=== PATIENT | male | born 1970 | race Caucasian/White ===

== ENCOUNTER 2020-01-06 10:33 | Outpatient (REF) | payer MEDICAID, SELFPAY ==
[2020-01-06 15:12] LABS: Estimated Average Glucose 134 mg/dL; Hemoglobin A1c % 6.3 %
== END 2020-01-06 10:34 | disposition home or self-care (01) ==
LOC: CF 10:33
PROVIDERS: Absent Provider Nurse Practitioner Gerontology; PCP Internal Medicine; Referring Provider Internal Medicine; Visit Provider Nurse Practitioner
DX: E11.649 Type 2 diabetes mellitus with hypoglycemia without coma (principal); K21.9 Gastro-esophageal reflux disease without esophagitis; K59.00 Constipation, unspecified; F17.200 Nicotine dependence, unspecified, uncomplicated; Z95.810 Presence of automatic (implantable) cardiac defibrillator
CPT/HCPCS: 36415; 83036; 99213

== ENCOUNTER → 2020-01-20 13:01 | Outpatient (BNVA) | payer MEDICAID, SELFPAY | PROVIDERS: PCP Internal Medicine; Visit Provider Internal Medicine | DX: Z86.718 Personal history of other venous thrombosis and embolism (principal); Z51.81 Encounter for therapeutic drug level monitoring; Z79.01 Long term (current) use of anticoagulants | CPT/HCPCS: 85610 ==

== ENCOUNTER → 2020-02-17 13:05 | Outpatient (BNVA) | payer MEDICAID, SELFPAY | PROVIDERS: PCP Internal Medicine; Visit Provider Internal Medicine | DX: I50.9 Heart failure, unspecified (principal); I42.9 Cardiomyopathy, unspecified; Z45.02 Encounter for adjustment and management of automatic implantable cardiac defibrillator; Z86.718 Personal history of other venous thrombosis and embolism; Z51.81 Encounter for therapeutic drug level monitoring; Z79.01 Long term (current) use of anticoagulants | CPT/HCPCS: 85610; 99211; 99212 ==

== ENCOUNTER 2020-02-21 12:31 | Outpatient (REF) | payer MEDICAID, SELFPAY ==
[2020-02-21 13:49] LABS: Anion Gap 11 (12-20); Blood Urea Nitrogen 12 mg/dL (9-16); Calcium 9.3 mg/dL (8.4-10.2); Carbon Dioxide 32 mmol/L (22-29); Chloride 99 mmol/L (96-108); Estimated Glomerular Filt Rate > 60; Glucose Random 209 mg/dL (60-115); Potassium 4.2 mmol/l (3.3-5.1); Sodium 138 mmol/L (135-145)
[2020-02-21 14:02] LABS: Digoxin 0.8 ng/mL (0.8-2.0)
== END 2020-02-21 12:32 | disposition home or self-care (01) ==
LOC: HO.LAB 12:31
PROVIDERS: Visit Provider Internal Medicine Cardiovascular Disease
DX: I42.9 Cardiomyopathy, unspecified (principal); I50.9 Heart failure, unspecified
CPT/HCPCS: 80048; 80162

== ENCOUNTER → 2020-03-25 13:03 | Outpatient (BNVA) | payer MEDICAID, SELFPAY | PROVIDERS: Visit Provider Internal Medicine | DX: I82.501 Chronic embolism and thrombosis of unspecified deep veins of right lower extremity (principal); Z79.01 Long term (current) use of anticoagulants; Z51.81 Encounter for therapeutic drug level monitoring | CPT/HCPCS: 85610; 99211 ==

== ENCOUNTER → 2020-03-30 13:26 | Outpatient (BNVA) | payer MEDICAID, SELFPAY | PROVIDERS: Visit Provider Nurse Practitioner Gerontology | DX: E11.65 Type 2 diabetes mellitus with hyperglycemia (principal); Z79.4 Long term (current) use of insulin; E78.5 Hyperlipidemia, unspecified | CPT/HCPCS: 82947; 99212 ==

== ENCOUNTER → 2020-04-22 11:34 | Outpatient (BNVA) | payer MEDICAID, SELFPAY | PROVIDERS: PCP Internal Medicine; Visit Provider Internal Medicine | DX: I82.501 Chronic embolism and thrombosis of unspecified deep veins of right lower extremity (principal); Z51.81 Encounter for therapeutic drug level monitoring; Z79.01 Long term (current) use of anticoagulants | CPT/HCPCS: 85610; 99211 ==

== ENCOUNTER 2020-05-19 11:30 | Outpatient (REF) | payer MEDICAID, SELFPAY ==
[2020-05-19 14:18] LABS: Alanine Aminotransferase 27 U/L (0-40); Albumin Level 4.4 g/dL (3.5-5.0); Alkaline Phosphatase 162 U/L (39-117); Anion Gap 15 (12-20); Aspartate Amino Transferase 20 U/L (5-37); Bilirubin Total 0.6 mg/dL (0.0-1.0); Blood Urea Nitrogen 13 mg/dL (9-16); Calcium 8.9 mg/dL (8.4-10.2); Carbon Dioxide 26 mmol/L (22-29); Chloride 101 mmol/L (96-108); Cholesterol 114 mg/dL; Estimated Glomerular Filt Rate > 60; Glucose Fasting 263 mg/dL (60-99); HDL Cholesterol 24 mg/dL; LDL Cholesterol Calculated 44 mg/dl; Potassium 4.8 mmol/L (3.3-5.1); Sodium 137 mmol/L (135-145); Total Protein 7.2 g/dL (6.5-8.0); Triglycerides 234 mg/dL
[2020-05-19 14:26] LABS: Microalbumin Urine < 5.0 mg/L
[2020-05-20 03:42] LABS: LDL Cholesterol Direct 62 mg/dL (<100)
== END 2020-05-19 11:31 | disposition home or self-care (01) ==
LOC: HO.10HDL 11:30
PROVIDERS: Visit Provider Nurse Practitioner Gerontology
DX: E11.65 Type 2 diabetes mellitus with hyperglycemia (principal); Z79.4 Long term (current) use of insulin
CPT/HCPCS: 36415; 80053; 80061; 82043; 83721

== ENCOUNTER → 2020-05-20 13:05 | Outpatient (BNVA) | payer MEDICAID, SELFPAY | PROVIDERS: PCP Internal Medicine; Visit Provider Internal Medicine | DX: Z86.718 Personal history of other venous thrombosis and embolism (principal); Z51.81 Encounter for therapeutic drug level monitoring; Z79.01 Long term (current) use of anticoagulants | CPT/HCPCS: 85610; 99211 ==

== ENCOUNTER 2020-06-05 12:32 | Outpatient (REF) | payer MEDICAID, SELFPAY ==
[2020-06-11 18:27] LABS: Alk.Phos Iso. Macrohepatic 0 % (<=0); Alk.Phos Isoenzymes Bone 15 % (28-66); Alk.Phos Isoenzymes Intest 0 % (1-24); Alk.Phos Isoenzymes Liver 85 % (25-69); Alk.Phos Isoenzymes Placental 0 % (<=0); Alk.Phos Isoenzymes Total 175 U/L (36-130)
== END 2020-06-05 12:33 | disposition home or self-care (01) ==
LOC: HO.LAB 12:32
PROVIDERS: Visit Provider Nurse Practitioner Gerontology
DX: R74.8 Abnormal levels of other serum enzymes (principal)
CPT/HCPCS: 36415; 84080

== ENCOUNTER → 2020-06-17 12:35 | Outpatient (BNVA) | payer MEDICAID, SELFPAY | PROVIDERS: PCP Internal Medicine; Visit Provider Internal Medicine | DX: I82.501 Chronic embolism and thrombosis of unspecified deep veins of right lower extremity (principal); Z51.81 Encounter for therapeutic drug level monitoring; Z79.01 Long term (current) use of anticoagulants | CPT/HCPCS: 85610; 99211 ==

== ENCOUNTER → 2020-06-29 13:27 | Outpatient (BNVA) | payer MEDICAID, SELFPAY | PROVIDERS: PCP Internal Medicine; Visit Provider Nurse Practitioner Gerontology | DX: E11.65 Type 2 diabetes mellitus with hyperglycemia (principal); Z79.4 Long term (current) use of insulin; E78.5 Hyperlipidemia, unspecified; R74.8 Abnormal levels of other serum enzymes | CPT/HCPCS: 82947; 99212 ==

== ENCOUNTER → 2020-07-06 10:56 | Outpatient (BNVA) | payer MEDICAID, SELFPAY | PROVIDERS: PCP Internal Medicine; Visit Provider Nurse Practitioner ==

== ENCOUNTER → 2020-07-15 13:02 | Outpatient (BNVA) | payer MEDICAID, SELFPAY | PROVIDERS: PCP Internal Medicine; Visit Provider Internal Medicine | DX: Z86.718 Personal history of other venous thrombosis and embolism (principal); Z79.01 Long term (current) use of anticoagulants; Z51.81 Encounter for therapeutic drug level monitoring; R74.8 Abnormal levels of other serum enzymes; K21.9 Gastro-esophageal reflux disease without esophagitis; K59.00 Constipation, unspecified; R14.0 Abdominal distension (gaseous) | CPT/HCPCS: 85610; 99211; 99212 ==

== ENCOUNTER 2020-07-16 12:27 | Outpatient (REF) | payer MEDICAID, SELFPAY ==
[2020-07-16 13:25] LABS: Hematocrit 44.5 % (42-52); Hemoglobin 14.7 g/dl (14.0-18.0); Mean Corpuscular Hemoglobin 29.9 pg (27.0-33.0); Mean Corpuscular Volume 90.4 fL (80-98); Mean Platelet Volume 11.3 fL (9.4-12.4); Platelet Count 167 X10*3/uL (160-400); Red Blood Count 4.92 X10*6/uL (4.60-5.80); Red Cell Distribution Width 12.7 % (11.0-16.0); White Blood Count 5.6 X10*3/uL (4.8-10.8)
[2020-07-16 13:44] LABS: Alanine Aminotransferase 30 U/L (0-40); Albumin Level 4.3 g/dL (3.5-5.0); Alkaline Phosphatase 181 U/L (39-117); Aspartate Amino Transferase 19 U/L (5-37); Bilirubin Direct 0.2 mg/dL (0.0-0.5); Bilirubin Total 0.5 mg/dL (0.0-1.0); Total Protein 7.5 g/dL (6.5-8.0)
[2020-07-20 12:37] LABS: Alkaline Phosphatase Bone 17.5 mcg/L (7.0-18.3)
[2020-07-20 13:01] LABS: Mitochondrial Antibodies NEGATIVE (NEGATIVE)
[2020-07-21 22:32] LABS: Alk.Phos Iso. Macrohepatic 0 % (<=0); Alk.Phos Isoenzymes Bone 13 % (28-66); Alk.Phos Isoenzymes Intest 0 % (1-24); Alk.Phos Isoenzymes Liver 87 % (25-69); Alk.Phos Isoenzymes Placental 0 % (<=0); Alk.Phos Isoenzymes Total 165 U/L (36-130)
[2020-07-22 23:22] LABS: Smooth Muscle Antibody <20 U (<20)
== END 2020-07-16 12:28 | disposition home or self-care (01) ==
LOC: HO.LAB 12:27
PROVIDERS: PCP Internal Medicine; Visit Provider Nurse Practitioner Family
DX: R74.8 Abnormal levels of other serum enzymes (principal); K21.9 Gastro-esophageal reflux disease without esophagitis; Z12.11 Encounter for screening for malignant neoplasm of colon
CPT/HCPCS: 80076; 84075; 84080; 85027; 86255; 86256; 87338

== ENCOUNTER 2020-08-13 08:28 | Outpatient (REF) | payer MEDICAID, SELFPAY ==
--- NOTE | ~2020-08-13 | US_ITS ---
EXAMINATION: US ABDOMEN COMPLETE CLINICAL INFORMATION: Abnormal serum enzymes. COMPARISON: CTA chest and abdomen 06/15/2017 TECHNIQUE: Real-time imaging of the abdominal viscera. FINDINGS: PANCREAS: The pancreas is obscured by overlying gas. ABDOMINAL AORTA: The proximal abdominal aorta is normal caliber. The mid and distal abdominal aorta are not visualized. INFERIOR VENA CAVA: Visualized portions are normal. LIVER: The liver is normal in size. The liver contour is normal. Parenchymal echogenicity is heterogenous with areas of focal fatty sparing. No focal hepatic lesion. There is no intrahepatic biliary duct dilatation seen. GALLBLADDER: Normal. The gallbladder is physiologically distended without evidence of stones, sludge, polyps, wall thickening or pericholecystic fluid. COMMON BILE DUCT: Normal in caliber measuring 0.2 cm in diameter. RIGHT KIDNEY: Normal. No hydronephrosis. No renal calculi or focal parenchymal lesions. The kidney measures 11.0 cm in maximum dimension. LEFT KIDNEY: Normal. No hydronephrosis. No renal calculi or focal parenchymal lesions. The kidney measures 11.0 cm in maximum dimension. SPLEEN: The spleen is enlarged and measures 12.5 cm in maximum dimension. FREE FLUID: None. US/US abdomen complete IMPRESSION: Hepatic steatosis with areas of focal fatty sparing. The pancreas, mid and distal abdominal aorta are obscured by overlying gas. Mild splenomegaly.
== END 2020-08-13 08:29 | disposition home or self-care (01) ==
LOC: HO.US 08:28
PROVIDERS: Visit Provider Nurse Practitioner Family
DX: R74.8 Abnormal levels of other serum enzymes (principal)
CPT/HCPCS: 76700

== ENCOUNTER → 2020-08-17 13:09 | Outpatient (BNVA) | payer MEDICAID, SELFPAY | PROVIDERS: PCP Internal Medicine; Visit Provider Internal Medicine | DX: Z86.718 Personal history of other venous thrombosis and embolism (principal); I42.9 Cardiomyopathy, unspecified; F17.210 Nicotine dependence, cigarettes, uncomplicated; Z79.899 Other long term (current) drug therapy; Z79.4 Long term (current) use of insulin; Z45.02 Encounter for adjustment and management of automatic implantable cardiac defibrillator | CPT/HCPCS: 85610; 99211; 99212 ==

== ENCOUNTER → 2020-09-01 13:40 | Outpatient (BNVA) | payer MEDICAID, SELFPAY | PROVIDERS: PCP Internal Medicine; Visit Provider Nurse Practitioner Family ==

== ENCOUNTER 2020-10-06 10:55 | Outpatient (REF) | payer MEDICAID, SELFPAY ==
--- NOTE | ~2020-10-06 | XR_ITS ---
EXAMINATION: XR CHEST CLINICAL INFORMATION: Lower respiratory tract infection COMPARISON: Previous chest x-ray most recent May 2018 TECHNIQUE: 2 views of the chest were obtained. FINDINGS: The cardiac and mediastinal contours are stable. There is a left clavian dual-chamber pacemaker that appears unchanged. The lungs are clear without evidence of a pneumonia. There is no pleural effusion or pneumothorax. Bony structures are unremarkable. XR/XR chest 2V IMPRESSION: No evidence for acute disease in the chest.
== END 2020-10-06 10:56 | disposition home or self-care (01) ==
LOC: HO.XRAY 10:55
PROVIDERS: PCP Internal Medicine; Visit Provider Internal Medicine
DX: J22 Unspecified acute lower respiratory infection (principal)
CPT/HCPCS: 71046

== ENCOUNTER → 2020-10-09 13:07 | Outpatient (BNVA) | payer MEDICAID, SELFPAY | PROVIDERS: PCP Internal Medicine; Visit Provider Internal Medicine | DX: Z86.718 Personal history of other venous thrombosis and embolism (principal); Z51.81 Encounter for therapeutic drug level monitoring; Z79.01 Long term (current) use of anticoagulants | CPT/HCPCS: 85610; 99211 ==

== ENCOUNTER 2020-11-13 22:47 | Emergency (ER) | payer MEDICAID, SELFPAY ==
--- NOTE | ~2020-11-13 | XR_ITS ---
EXAMINATION: XR ABDOMEN KUB CLINICAL INDICATION: Constipation. 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 TECHNIQUE: AP view of the abdomen. FINDINGS: Nonobstructive bowel gas pattern. No dilated loops of bowel. Gas and stool in the colon. Mild colonic stool burden in the left hemicolon. The lung bases are clear. Cardiac pacer leads noted. IVC filter. No acute osseous abnormality. XR/XR KUB IMPRESSION: Mild colonic stool burden involving the left hemicolon. No obstruction.
[2020-11-13 23:32] VITALS: BP 99/68; PULSE 109; RESP 16; TEMP 36.8; O2SAT 94; BMI 27.4
[2020-11-14 00:39] LABS: MANUAL DIFF FLAG NO
[2020-11-14 00:40] LABS: Basophils Percent Auto 0.2 % (0-2); Eosinophils Absolute Auto 0.2 X10*3/uL (0.0-0.4); Eosinophils Percent Auto 2.7 % (0-4); Hematocrit 39.9 % (42-52); Imm Gran Abs Auto 0.02 X10*3/uL (0.00-0.03); Imm Gran Pct Auto 0.3 % (0.0-0.4); Lymphocytes Absolute Auto 2.1 X10*3/uL (1.2-4.9); Lymphocytes Percent Auto 33.3 % (20-40); Mean Corpuscular HGB Conc 35.1 g/dl (31.0-36.0); Mean Corpuscular Hemoglobin 31.6 pg (27.0-33.0); Mean Corpuscular Volume 90.1 fL (80-98); Mean Platelet Volume 10.6 fL (9.4-12.4); Monocytes Absolute Auto 0.5 X10*3/uL (0.1-1.2); Monocytes Percent Auto 7.5 % (2-11); Neutrophils Absolute Auto 3.5 X10*3/uL (2.0-8.3); Platelet Count 153 X10*3/uL (160-400); Red Blood Count 4.43 X10*6/uL (4.60-5.80); Red Cell Distribution Width 12.9 % (11.0-16.0); White Blood Count 6.3 X10*3/uL (4.8-10.8)
[2020-11-14] MEDS: 0.9 % Sodium Chloride 1,000 ML 999 ML IVCONT (00:40)
[2020-11-14 01:01] LABS: Alanine Aminotransferase 29 U/L (0-40); Albumin Level 4.6 g/dL (3.5-5.0); Alkaline Phosphatase 167 U/L (39-117); Anion Gap 15 (12-20); Aspartate Amino Transferase 26 U/L (5-37); Bilirubin Direct 0.2 mg/dL (0.0-0.5); Bilirubin Total 0.4 mg/dL (0.0-1.0); Blood Urea Nitrogen 13 mg/dL (9-16); Calcium 9.8 mg/dL (8.4-10.2); Carbon Dioxide 28 mmol/L (22-29); Chloride 101 mmol/L (96-108); Creatinine Clr Calc Pharmacy 66.8; Estimated Glomerular Filt Rate > 60; Glucose Random 138 mg/dL (60-115); Lipase 34 U/L (8-78); Potassium 3.9 mmol/L (3.3-5.1); Sodium 140 mmol/L (135-145); Total Protein 7.6 g/dL (6.5-8.0)
--- NOTE | 2020-11-14 01:22 | ED_ITS ---
HPI - General Adult General Chief complaint: General Medical Stated complaint: diff urinating Time Seen by Provider: 11/14/20 00:25 Source: patient Mode of arrival: ambulatory History of Present Illness HPI narrative: 50-year-old male with a past medical history of cardiomyopathy, CHF, DVT, hyperlipidemia, diabetes, presenting to the ED complaining of constipation, mild abdominal discomfort, and no BM x3 days. Admits is passing flatus. Denies nausea, vomiting, fever, chills, dysuria/hematuria Onset (ago): day(s) Related Data Home Medications Medication Instructions Recorded Confirmed gabapentin 300 mg capsule 300 mg PO DAILY 01/06/20 10/29/20 magnesium 200 mg tablet 400 mg PO BID tab 01/06/20 10/29/20 multivitamin 1 cap PO DAILY 01/06/20 10/29/20 quetiapine 25 mg tablet 25 mg PO BEDTIME 01/06/20 10/29/20 warfarin 5 mg tablet 5 mg PO DAILY 01/20/20 10/29/20 Previous Rx's Medication Instructions Recorded docusate sodium 100 mg capsule 100 mg PO DAILY #30 cap 07/15/20 sennosides 8.6 mg tablet (Natural 8.6 mg PO BEDTIME PRN #30 tab 07/15/20 Senna Laxative) simethicone 180 mg capsule 180 mg PO TID 30 Days #90 cap 07/15/20 digoxin 250 mcg (0.25 mg) tablet 250 mcg PO DAILY 90 Days #90 tab 07/27/20 atorvastatin 40 mg tablet 40 mg PO DAILY 90 Days #90 tab 08/24/20 sacubitril 49 mg-valsartan 51 mg 1 tab PO BID #60 tab 09/09/20 tablet (Entresto) omeprazole 20 mg capsule,delayed 20 mg PO BID 30 Days #60 cap 09/21/20 release dulaglutide 4.5 mg/0.5 mL 4.5 mg SUBCUT QWEEK #2 ml 10/13/20 subcutaneous pen injector (Trulicity) insulin glargine 100 unit/mL (3 30 unit SUBCUT QPM 30 Days #9 ml 10/30/20 mL) subcutaneous pen (Lantus Solostar U-100 Insulin) furosemide 20 mg tablet 20 mg PO .COMPLEX 90 Days #36 tab 11/06/20 carvedilol 25 mg tablet 25 mg PO BID 90 Days #180 tab 11/10/20 mineral oil (Fleet Mineral Oil) 118 ml UT DAILY PRN #6384 ml 11/14/20 polyethylene glycol 3350 17 17 g PO DAILY PRN #119 g 11/14/20 gram/dose oral powder (Miralax) Allergies Allergy/AdvReac Type Severity Reaction Status Date / Time No Known Allergies Allergy Verified 10/09/20 13:08 Review of Systems Review of Systems: Constitutional: No Fever, No Chills, No Fatigue, No Malaise Cardiovascular: No Chest Pain, No SOB Respiratory: No Cough, No Dyspnea Gastrointestinal: No Nausea, No Vomiting, No Diarrhea, + Constipation, + Abdominal pain Genitourinary: No Dysuria, No Urinary Frequency, No Hematuria, No Flank Pain Musculoskeletal: No joint pain, Skin: No Skin Lesions, No rash Neuro: No Weakness Yes all other systems are reviewed and are negative [facility] Past Medical History Attestation statement: The following information was validated with the patient. Medical History Cardiomyopathy CHF (congestive heart failure), NYHA class I Controlled diabetes mellitus without complication, with long-term current use of insulin DVT (deep venous thrombosis) Hyperlipidemia LDL goal <100 Prosthetic and other implants, materials and accessory gastroenterology and urology devices associated with adverse incidents Type 2 diabetes mellitus with hyperglycemia, with long-term current use of insulin Type 2 diabetes mellitus with hypoglycemia without coma Surgical History History of implantable cardioverter-defibrillator (ICD) insertion Family History Family History Father No problems noted. Mother Diabetes mellitus CVD (cardiovascular disease) Cancer Uterine cancer Cervical cancer Maternal Grandfather Prostate cancer Social History Social History Alcohol intake: current Alcohol intake frequency: does not drink Advance Directives: No Advance Directives Information Provided: No Physical Exam Vital Signs: Vital Signs: Last Vital Signs Temp 98.2 F 11/13/20 23:32 Pulse 109 H 11/13/20 23:32 Resp 16 11/13/20 23:32 BP 99/68 11/13/20 23:32 Pulse Ox 94 11/13/20 23:32 Body Mass Index 27.4 Const: General: cooperative, healthy appearing and no acute distress Orientation/consciousness: patient oriented x3 Limitations: no limitations HENMT: Head: Yes normal to inspection Ears: hearing grossly normal bilaterally General nose exam: Normal external nose present Face and sinus: Yes normal facial exam Eyes: General: appearance normal, both eyes and all related structures EOM: EOMs intact bilaterally Neck: Neck: Yes normal visual inspection Resp: Effort & Inspection: normal respiratory effort and no respiratory distress Cardio: Rate: regular rate GI: Inspection: Yes normal to inspection Palpation (GI): Soft to palpation, nontender, no guarding and not rigid Skin: Rashes: no rashes Wounds: no wounds Neuro: General: patient oriented x3 Gait exam (Neuro): Normal gait present Extrem: General: Yes normal to inspection Course Course Course Narrative: -no leukocytosis, labs otherwise unremarkable XR KUB IMPRESSION: Mild colonic stool burden involving the left hemicolon. No obstruction. > results discussed with patient with educational interpreter. Given dose of MiraLax in the ED. Worrisome signs and symptoms and strict return precautions discussed. Patient verbalized understanding feel safe for discharge home Medical Decision Making MDM Narrative Medical decision making narrative: 50-year-old male with a past medical history of cardiomyopathy, CHF, DVT, hyperlipidemia, diabetes, presenting to the ED complaining of constipation, mild abdominal discomfort, and no BM x3 days. On exam mildly tachycardic, NAD, abdomen soft/nontender, no rebound or guarding. Concern for constipation versus SBO. Low concern for infectious etiology without tenderness on exam. Plan: Labs, KUB Lab Data Result diagrams: 11/14/20 00:34 11/14/20 00:34 Labs: Lab Results 11/14/20 11/14/20 Range/Units 00:34 00:34 WBC 6.3 (4.8-10.8) X10*3/uL RBC 4.43 L (4.60-5.80) X10*6/uL Hgb 14.0 (14.0-18.0) g/dl Hct 39.9 L (42-52) % MCV 90.1 (80-98) fL MCH 31.6 (27.0-33.0) pg MCHC 35.1 (31.0-36.0) g/dl RDW 12.9 (11.0-16.0) % Plt Count 153 L (160-400) X10*3/uL MPV 10.6 (9.4-12.4) fL Immature Gran % (Auto) 0.3 (0.0-0.4) % Neut % (Auto) 56.0 (45-73) % Lymph % (Auto) 33.3 (20-40) % [place] % (Auto) 7.5 (2-11) % Eos % (Auto) 2.7 (0-4) % Baso % (Auto) 0.2 (0-2) % Lymph # (Auto) 2.1 (1.2-4.9) X10*3/uL [place] # (Auto) 0.5 (0.1-1.2) X10*3/uL Eos # (Auto) 0.2 (0.0-0.4) X10*3/uL Baso # (Auto) 0.0 (0.0-0.2) X10*3/uL Abs Immat Gran (auto) 0.02 (0.00-0.03) X10*3/uL Absolute Neuts (auto) 3.5 (2.0-8.3) X10*3/uL Absolute Nucleated RBC 0.000 (0.0-0.012) X10*3/uL Nucleated RBC % (auto) 0.0 (0.0-0.2) /100WBC Sodium 140 (135-145) mmol/L Potassium 3.9 (3.3-5.1) mmol/L Chloride 101 (96-108) mmol/L Carbon Dioxide 28 (22-29) mmol/L Anion Gap 15 (12-20) BUN 13 (9-16) mg/dL Creatinine 1.22 (0.5-1.4) mg/dL Estim Creat Clear Calc 66.8 Estimated GFR > 60 Random Glucose 138 H (60-115) mg/dL Calcium 9.8 D (8.4-10.2) mg/dL Magnesium 2.0 (1.6-2.6) mg/dL Total Bilirubin 0.4 (0.0-1.0) mg/dL Direct Bilirubin 0.2 (0.0-0.5) mg/dL AST 26 (5-37) U/L ALT 29 (0-40) U/L Alkaline Phosphatase 167 H (39-117) U/L Total Protein 7.6 (6.5-8.0) g/dL Albumin 4.6 (3.5-5.0) g/dL Lipase 34 (8-78) U/L Discharge Plan Discharge Clinical Impression: Constipation Qualifiers: Constipation type: unspecified constipation type Qualified Code(s): K59.00 - Constipation, unspecified Patient Disposition: Home, Self-Care Instructions: Constipation (ED) Additional Instructions: Your blood work was reassuring. Your x-ray showed some stool in her colon however no obstruction MiraLax will help you passed stool Usual sees a Fleet enema If you do not have a bowel movement in the next 48 hours please return to the ED Make sure you are staying hydrated Rubio an?lisis de gregory fue reconfortante. Rubio radiograf?a mostr? algo de materia fecal en el colon, stefany sin obstrucci?n. MiraLax le ayudar? a evacuar las heces Habitualmente ve un enema Fleet Si no tiene suhail evacuaci?n intestinal en las pr?ximas 48 horas, regrese al servicio de urgencias. Aseg?rate de mantenerte hidratado Prescriptions: New polyethylene glycol 3350 [Miralax] 17 gram/dose powder 17 g PO DAILY PRN (Reason: constipation) Qty: 119 RF: 0 mineral oil [Fleet Mineral Oil] Enema 118 ml UT DAILY PRN (Reason: constipation) Qty: 6384 RF: 0 No Action digoxin 250 mcg (0.25 mg) tablet 250 mcg PO DAILY 90 Days Qty: 90 RF: 1 atorvastatin 40 mg tablet 40 mg PO DAILY 90 Days Qty: 90 RF: 1 Entresto 49-51 mg tablet 1 tab PO BID Qty: 60 RF: 5 omeprazole 20 mg capsule,delayed release(DR/EC) 20 mg PO BID 30 Days Qty: 60 RF: 4 dulaglutide [Trulicity] 4.5 mg/0.5 mL pen injector 4.5 mg subcut QWEEK Qty: 2 RF: 2 Lantus Solostar U-100 Insulin 100 unit/mL (3 mL) insulin pen 30 unit subcut QPM 30 Days Qty: 9 RF: 2 furosemide 20 mg tablet 20 mg PO .COMPLEX 90 Days Qty: 36 RF: 4 carvedilol 25 mg tablet 25 mg PO BID 90 Days Qty: 180 RF: 3 multivitamin Capsule 1 cap PO DAILY RF: 0 quetiapine 25 mg tablet 25 mg PO BEDTIME RF: 0 gabapentin 300 mg capsule 300 mg PO DAILY RF: 0 magnesium 200 mg tablet 400 mg PO BID RF: 0 warfarin 5 mg tablet 5 mg PO DAILY RF: 0 docusate sodium 100 mg capsule 100 mg PO DAILY Qty: 30 RF: 3 sennosides [Natural Senna Laxative] 8.6 mg tablet 8.6 mg PO BEDTIME PRN (Reason: constipation) Qty: 30 RF: 1 simethicone 180 mg capsule 180 mg PO TID 30 Days Qty: 90 RF: 3 Referrals: [facility] [Primary Care Provider] - 2 days Print Language: Grenadian
[2020-11-14] MEDS: polyethylene glycoL 3350 17 GM POWD.PACK PO (01:47)
== END 2020-11-14 01:50 | disposition home or self-care (01) ==
PROVIDERS: Physician Assistant; Emergency Provider Emergency Medicine
DX: K59.00 Constipation, unspecified (principal); R33.9 Retention of urine, unspecified; Z79.899 Other long term (current) drug therapy
CPT/HCPCS: 36415; 74018; 80048; 80076; 83690; 83735; 85025; 96360; 99284

== ENCOUNTER → 2020-12-25 11:57 | Outpatient (BNVA) | payer MEDICAID, SELFPAY | PROVIDERS: PCP Internal Medicine; Visit Provider Nurse Practitioner Gerontology | DX: E11.65 Type 2 diabetes mellitus with hyperglycemia (principal); E78.5 Hyperlipidemia, unspecified; E66.3 Overweight; Z79.4 Long term (current) use of insulin | CPT/HCPCS: 82947; 99212 ==

== ENCOUNTER → 2021-01-04 13:05 | Outpatient (BNVA) | payer MEDICAID, SELFPAY | PROVIDERS: PCP Internal Medicine; Visit Provider Nurse Practitioner Family ==

== ENCOUNTER → 2021-01-08 13:02 | Outpatient (BNVA) | payer MEDICAID, SELFPAY | PROVIDERS: PCP Internal Medicine; Visit Provider Internal Medicine | DX: Z86.718 Personal history of other venous thrombosis and embolism (principal); Z51.81 Encounter for therapeutic drug level monitoring; Z79.01 Long term (current) use of anticoagulants | CPT/HCPCS: 85610; 99211 ==

== ENCOUNTER → 2021-02-05 13:04 | Outpatient (BNVA) | payer MEDICAID, SELFPAY | PROVIDERS: PCP Internal Medicine; Visit Provider Internal Medicine | DX: Z86.718 Personal history of other venous thrombosis and embolism (principal); Z51.81 Encounter for therapeutic drug level monitoring; Z79.01 Long term (current) use of anticoagulants | CPT/HCPCS: 85610; 99211 ==

== ENCOUNTER → 2021-02-15 12:56 | Outpatient (BNVA) | payer MEDICAID, SELFPAY | PROVIDERS: PCP Internal Medicine; Referring Provider Internal Medicine; Visit Provider Internal Medicine Cardiovascular Disease | DX: Z45.02 Encounter for adjustment and management of automatic implantable cardiac defibrillator (principal); I42.9 Cardiomyopathy, unspecified; I47.1 Supraventricular tachycardia | CPT/HCPCS: 99212 ==

== ENCOUNTER → 2021-02-22 12:18 | Outpatient (BNVA) | payer MEDICAID, SELFPAY | PROVIDERS: PCP Internal Medicine; Referring Provider Internal Medicine; Visit Provider Nurse Practitioner Family | DX: K59.00 Constipation, unspecified (principal); K21.9 Gastro-esophageal reflux disease without esophagitis; E11.65 Type 2 diabetes mellitus with hyperglycemia; E11.649 Type 2 diabetes mellitus with hypoglycemia without coma; I42.9 Cardiomyopathy, unspecified; I50.9 Heart failure, unspecified; E78.5 Hyperlipidemia, unspecified; F17.210 Nicotine dependence, cigarettes, uncomplicated; Z95.810 Presence of automatic (implantable) cardiac defibrillator; Z79.4 Long term (current) use of insulin; Z79.899 Other long term (current) drug therapy | CPT/HCPCS: 99212 ==

== ENCOUNTER → 2021-03-05 12:02 | Outpatient (BNVA) | payer OTHER, SELFPAY | PROVIDERS: PCP Internal Medicine; Visit Provider Internal Medicine | DX: Z86.718 Personal history of other venous thrombosis and embolism (principal); Z51.81 Encounter for therapeutic drug level monitoring; Z79.01 Long term (current) use of anticoagulants | CPT/HCPCS: 85610; 99211 ==

== ENCOUNTER → 2021-04-09 11:02 | Outpatient (BNVA) | payer OTHER, SELFPAY | PROVIDERS: PCP Internal Medicine; Visit Provider Internal Medicine | DX: Z86.718 Personal history of other venous thrombosis and embolism (principal); Z51.81 Encounter for therapeutic drug level monitoring; Z79.01 Long term (current) use of anticoagulants | CPT/HCPCS: 85610; 99211 ==

== ENCOUNTER → 2021-04-13 12:03 | Outpatient (REF) | payer OTHER, SELFPAY ==
--- NOTE | 2021-04-13 12:06 | CA_ITS ---
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 The calculated ejection fraction is 24% by biplane method. - There is moderately decreased right ventricular systolic function. - There is mild calcification of the aortic valve. Findings Procedure Information Contrast agent, definity, is being given per protocol without apparent complications. Left Ventricle Mildly increased left ventricular cavity size. There is normal left ventricular wall thickness. The left ventricular systolic function is severely decreased. The calculated ejection fraction is 24% by biplane method. There is severe global hypokinesis. E/E prime ratio is <8, consistent with normal filling pressures. Evidence suggests grade I (mild) diastolic dysfunction. Right Ventricle Normal right ventricular cavity size. There is moderately decreased right ventricular systolic function. There is an ICD wire seen in the right ventricle. Atria The left atrium is mildly dilated. The right atrium is normal in size. Aortic Valve There is a normal trileaflet aortic valve. There is mild calcification of the aortic valve. There is no aortic valve stenosis. The mean gradient is 5 mmHg. There is mild aortic valve regurgitation. Mitral Valve The mitral valve appears normal. There is trace mitral valve regurgitation. There is no mitral valve stenosis. Pulmonic Valve The pulmonic valve was not well visualized. Tricuspid Valve Normal tricuspid valve structure. There is mild tricuspid valve regurgitation. The pulmonary artery systolic pressure is normal. Great Vessels The aortic annulus, sinuses of valsalva, and asc aorta are normal in size. Venous The inferior vena cava was not well visualized. The inferior vena cava is normal in size. Pericardium/Pleural There is no evidence of pericardial effusion. Prior Study Comparison No significant change compared to prior study dated: 11/11/2019. Measurements 2D Linear Measurements IVSd: 0.82 0.6-0.9/0.6-1.0 cm LVIDd: 5.67 3.9-5.3/4.2-5.9 cm LVIDd Index: 3.13 2.4-3.2/2.2-3.1 cm/m2 LVIDs: 5.06 2.0-3.6 cm LVPWd: 1.11 0.7-1.1 cm Ao Root: 3.00 2.1-3.5 cm LA Diam: 3.20 2.7-3.8/3.0-4.0 cm LAIDs Index: 1.77 1.5-2.3 cm/m2 LV Mass: 267.32 67-162/88-224 g LV Mass Index: 147.69 43-95/49-115 g/m2 LVOT Diam: 2.70 3.0+(-)1.3 cm 2D Systolic Function EF 4C: 21.10 >55% EF 2C: 23.70 >55% EF BiP: 24.40 >55% Mitral Valve MV Pk E: 0.54 MV PK A: 0.64 MV Decel Time: 311.00 E/A: 0.80 E'Lateral: 6.53 E'Medial: 5.98 E/E' Med: 9.00 E/E' Lat: 8.20 PHT: 91.00 MVA PHT: 2.42 Decel [facility]: 1.72 Aortic Valve AoV Pk Mian: 1.29 AoV Mn Mian: 1.03 AoV VTI: 0.26 AoV Pk Grad: 7.00 Aov Mn Grad: 5.00 MELANIA Cont.VTI: 2.19 AI Pk Mian: 4.32 AI [facility]: 2.04 LVOT LVOT Pk Mian: 0.56 LVOT Mn Mian: 0.43 LVOT VTI: 0.10 LVOT Pk Grad: 1.00 LVOT Mn Grad: 1.00 LVOT Diam: 2.70 LVOT Area: 5.73 Diastolic Function MV Pk E: 0.54 MV Pk A: 0.64 E/A: 0.80 E'Medial: 5.98 E/E' Med: 9.00 E' Laterial: 6.53 E/E' Lat: 8.20 Right Ventricle TAPSE (mm): 13.10 TVS' Mian: 12.40 Tricuspid Valve TR Pk Mian: 2.30 TR Pk Grad: 21.00 RA Press: 3.00 RVSP: 24.00 Great Vessels Aorta Ao Root-2D: 3.00 2.0-3.7 cm Ao Asc: 3.60 2.1-3.4 cm Ao Arch: 3.40 Updated in Other Vendor System with Status of Final Evelio Cottrell MD electronically signed on 04/15/2021 4:33:22 PM with status of Final
== END ==
LOC: HO.CARD 12:03
PROVIDERS: Visit Provider Internal Medicine Cardiovascular Disease
DX: I42.9 Cardiomyopathy, unspecified (principal)
CPT/HCPCS: 93306; Q9957

== ENCOUNTER 2021-04-27 11:46 | Emergency (ER) | payer OTHER, SELFPAY ==
[2021-04-27 12:01] VITALS: BP 132/77; PULSE 100; RESP 19; TEMP 36.6; O2SAT 96; BMI 27.4
[2021-04-27 12:53] LABS: COVID-19 Test Negative (Negative); IDNOW Serial# 9DD0AD1C; Strep A Nucleic Acid Negative (Negative)
--- NOTE | 2021-04-27 12:59 | ED_ITS ---
HPI - URI/Sore Throat General Chief Complaint: Upper Respiratory Symptoms <Ariana Ronquillo NP - Last Filed: 04/27/21 13:11> Stated Complaint: Sore throat <Ariana Ronquillo NP - Last Filed: 04/27/21 13:11> Time Seen by Provider: 04/27/21 12:54 <Ariana Ronquillo NP - Last Filed: 04/27/21 13:11> Source: patient and diplomatic interpreter/translator <Ariana Ronquillo NP - Last Filed: 04/27/21 13:11> Mode of arrival: ambulatory <Ariana Ronquillo NP - Last Filed: 04/27/21 13:11> Limitations: language barrier <Ariana Ronquillo NP - Last Filed: 04/27/21 13:11> History of Present Illness HPI Narrative: 50-year-old male with a past medical history of cardiomyopathy, CHF, DVT, hyperlipidemia, diabetes here with reports of 4 days of sore throat. No fevers, chills, runny nose, cough, shortness of breath or chest pain. <Ariana Ronquillo NP - Last Filed: 04/27/21 13:11> Related Data Home Medications: Home Medications Medication Instructions Recorded Confirmed gabapentin 300 mg capsule 300 mg PO DAILY 01/06/20 04/09/21 multivitamin 1 cap PO DAILY 01/06/20 04/09/21 quetiapine 25 mg tablet 25 mg PO BEDTIME 01/06/20 04/09/21 warfarin 5 mg tablet 5 mg PO DAILY 01/20/20 04/09/21 Previous Rx's Medication Instructions Recorded docusate sodium 100 mg capsule 100 mg PO DAILY #30 cap 07/15/20 sennosides 8.6 mg tablet (Natural 8.6 mg PO BEDTIME PRN #30 tab 07/15/20 Senna Laxative) simethicone 180 mg capsule 180 mg PO TID 30 Days #90 cap 07/15/20 atorvastatin 40 mg tablet 40 mg PO DAILY 90 Days #90 tab 08/24/20 furosemide 20 mg tablet 20 mg PO .COMPLEX 90 Days #36 tab 11/06/20 mineral oil (Fleet Mineral Oil) 118 ml TN DAILY PRN #6384 ml 11/14/20 dulaglutide 4.5 mg/0.5 mL 4.5 mg (0.5 mL) SUBCUT QWEEK #2 ml 12/24/20 subcutaneous pen injector (Trulicity) digoxin 250 mcg (0.25 mg) tablet 250 mcg PO DAILY 90 Days #90 tab 12/31/20 magnesium citrate 150 ml PO DAILY PRN #296 ml 01/04/21 sacubitril 49 mg-valsartan 51 mg 1 tab PO BID #60 tab 02/15/21 tablet (Entresto) omeprazole 20 mg capsule,delayed 20 mg PO BID 30 Days #60 cap 02/22/21 release insulin glargine 100 unit/mL (3 30 unit (0.3 mL) SUBCUT QPM 30 03/16/21 mL) subcutaneous pen (Lantus Days #9 ml Solostar U-100 Insulin) carvedilol 25 mg tablet 25 mg PO BID 90 Days #180 tab 03/24/21 valsartan 80 mg tablet (Diovan) 80 mg PO BID 90 Days #180 tab 03/31/21 polyethylene glycol 3350 17 17 g PO BID #119 g 04/13/21 gram/dose oral powder (Miralax) amoxicillin 500 mg tablet 500 mg PO BID #20 tab 04/27/21 <Ariana Ronquillo NP - Last Filed: 04/27/21 13:11> Allergies/Adverse Reactions: Allergies Allergy/AdvReac Type Severity Reaction Status Date / Time No Known Allergies Allergy Verified 04/09/21 11:02 <Ariana Ronquillo NP - Last Filed: 04/27/21 13:11> Review of Systems Review of Systems: Yes all other systems are reviewed and are negative <Ariana Ronquillo NP - Last Filed: 04/27/21 13:11> Constitutional: Constitutional: Reports no additional constitutional complaints, Denies body ache(s), Denies chills, Denies fever(s), Denies headache(s) and Denies weakness <Ariana Ronquillo NP - Last Filed: 04/27/21 13:11> Eyes: Eyes: Reports no additional eye complaints and Denies change in vision <Ariana Ronquillo NP - Last Filed: 04/27/21 13:11> ENT: Reports system reviewed and no additional complaints, except as documented, Denies dizziness, Denies headache(s), Denies nasal congestion, Denies nasal discharge, Denies neck pain and Reports sore throat <Ariana Ronquillo NP - Last Filed: 04/27/21 13:11> Cardiovascular: Cardiovascular: Reports no additional cardiovascular complaints, Denies chest pain, Denies leg edema and Denies dyspnea <Ariana Ronquillo NP - Last Filed: 04/27/21 13:11> Respiratory: Respiratory: Reports no additional respiratory complaints, Denies cough and Denies dyspnea <Ariana Ronquillo NP - Last Filed: 04/27/21 13:11> Gastrointestinal: Gastrointestinal: Reports no additional gastrointestinal complaints, Denies abdominal pain, Denies diarrhea, Denies nausea and Denies vomiting <Ariana Ronquillo NP - Last Filed: 04/27/21 13:11> Genitourinary: Genitourinary: Denies urinary incontinence <Ariana burton NP - Last Filed: 04/27/21 13:11> Musculoskeletal: Musculoskeletal: Reports no additional musculoskeletal complaints, Denies back pain, Denies arthralgias, Denies joint swelling, Denies neck pain, Denies numbness and Denies tingling <Ariana Ronquillo NP - Last Filed: 04/27/21 13:11> Integumentary/Breasts: Skin/Breast: Reports system reviewed and no additional complaints, except as docu and Denies rash <ESTRELLA Guillen Last Fi led: 04/27/21 13:11> Neurologic: Reports system reviewed and no additional complaints, except as documented, Denies Abnormal speech present, Denies dizziness, Denies headache(s), Denies numbness, Denies tingling and Denies weakness <Ariana Ronquillo NP - Last Filed: 04/27/21 13:11> [facility] Past Medical History Attestation statement: The following information was validated with the patient. <ESTRELLA Guillen Last Filed: 04/27/21 13:11> Source: old records reviewed and nursing notes reviewed <Ariana Ronquillo NP - Last Filed: 04/27/21 13:11> Medical History: Medical History Cardiomyopathy CHF (congestive heart failure), NYHA class I Controlled diabetes mellitus without complication, with long-term current use of insulin DVT (deep venous thrombosis) Hyperlipidemia LDL goal <100 Prosthetic and other implants, materials and accessory gastroenterology and urology devices associated with adverse incidents Type 2 diabetes mellitus with hyperglycemia, with long-term current use of insulin Type 2 diabetes mellitus with hypoglycemia without coma <Ariana Ronquillo NP - Last Filed: 04/27/21 13:11> Surgical History: Surgical History History of implantable cardioverter-defibrillator (ICD) insertion <Ariana Ronquillo NP - Last Filed: 04/27/21 13:11> Family History Family History: Family History Father No problems noted. Mother Diabetes mellitus CVD (cardiovascular disease) Cancer Uterine cancer Cervical cancer Maternal Grandfather Prostate cancer <Ariana Ronquillo NP - Last Filed: 04/27/21 13:11> Social History Social History: Social History Alcohol intake: current Alcohol intake frequency: does not drink Patient Tobacco Use Status: Current everyday Tobacco user Cigarettes Per Day: 7 Advance Directives: No Advance Directives Information Provided: No <Ariana Ronquillo NP - Last Filed: 04/27/21 13:11> Physical Exam Vital Signs: Vital Signs: Last Vital Signs Temp 98 F 04/27/21 12:01 Pulse 100 04/27/21 12:01 Resp 04/27/21 12:01 BP 132/77 04/27/21 12:01 Pulse Ox 96 04/27/21 12:01 BMI result Body Mass Index 27.4 <Ariana Ronquillo NP - Last Filed: 04/27/21 13:11> Vital Signs: Last Vital Signs Temp 98 F 04/27/21 12:01 Pulse 100 04/27/21 12:01 Resp 04/27/21 12:01 BP 132/77 01/25/22 12:01 Pulse Ox 96 04/27/21 12:01 BMI result Body Mass Index 27.4 <Malachi Maher MD - Last Filed: 04/27/21 14:03> Const: General: cooperative, healthy appearing, comfortable and no acute distress <Ariana Ronquillo NP - Last Filed: 04/27/21 13:11> Orientation/consciousness: patient oriented x3 <Ariana Ronquillo NP - Last Filed: 04/27/21 13:11> Limitations: no limitations <Ariana Ronquillo NP - Last Filed: 04/27/21 13:11> HENMT: Head: Yes normal to inspection <Ariana Ronquillo NP - Last Filed: 04/27/21 13:11> Ears: hearing grossly normal bilaterally and TM's normal bilaterally <Ariana Ronquillo NP - Last Filed: 04/27/21 13:11> General nose exam: Normal external nose present <Ariana Ronquillo NP - Last Filed: 04/27/21 13:11> Face and sinus: Yes normal facial exam <Ariana Ronquillo NP - Last Filed: 04/27/21 13:11> Mouth: Normal oral and palatal mucosa present <Ariana Ronquillo NP - Last Filed: 04/27/21 13:11> Throat: Yes posterior oropharynx normal and Yes abnormal tonsil (Mild bilateral erythema. No exudate) <Ariana Ronquillo NP - Last Filed: 04/27/21 13:11> Eyes: General: appearance normal, both eyes and all related structures <Ariana Ronquillo NP - Last Filed: 04/27/21 13:11> Pupils: Equal, round and reactive pupils present <Ariana Ronquillo NP - Last Filed: 04/27/21 13:11> Neck: Neck: Yes normal visual inspection, Yes full ROM, Yes no lymphadenopathy and Yes no meningeal signs <Ariana Ronquillo NP - Last Filed: 04/27/21 13:11> Chest: Chest palpation & inspection: normal inspection of the chest <Ariana Ronquillo NP - Last Filed: 04/27/21 13:11> Resp: Effort & Inspection: normal respiratory effort <Ariana Ronquillo NP - Last Filed: 04/27/21 13:11> Auscultation: clear to auscultation bilaterally <Ariana Ronquillo MAINTENANCE ENGINEER - Last Filed: 04/27/21 13:11> Cardio: Rate: regular rate <Ariana Ronquillo MAINTENANCE ENGINEER - Last Filed: 04/27/21 13:11> Rhythm: regular rhythm <Ariana Ronquillo MAINTENANCE ENGINEER - Last Filed: 04/27/21 13:11> Peripheral pulses: Peripheral pulses 2+ throughout <Ariana Ronquillo MAINTENANCE ENGINEER - Last Filed: 04/27/21 13:11> GI: Inspection: Yes normal to inspection <Ariana Ronquillo NP - Last Filed: 04/27/21 13:11> Palpation (GI): Soft to palpation and nontender <Ariana oRnquillo NP - Last Filed: 04/27/21 13:11> Auscultation: normal bowel sounds <Ariana Ronquillo NP - Last Filed: 04/27/21 13:11> Back/Spine/Pelvis: Thoracic/Lumbar Spine: thoracic and lumbar spine normal to inspection <Ariana Ronquillo NP - Last Filed: 04/27/21 13:11> Skin: General skin exam: no rashes or lesions noted <Ariana Ronquillo NP - Last Filed: 04/27/21 13:11> Neuro: General: patient oriented x3, no meningeal signs, no focal motor deficits and normal sensation to monofilament <Ariana Ronquillo NP - Last Filed: 04/27/21 13:11> Cranial nerves: Yes Equal, round and reactive pupils present <Ariana Ronquillo NP - Last Filed: 04/27/21 13:11> Cognition (Neuro): normal cognition <Ariana Ronquillo NP - Last Filed: 04/27/21 13:11> Speech: No Abnormal speech present <Ariana Ronquillo NP - Last Filed: 04/27/21 13:11> Gait exam (Neuro): Normal gait present <Ariana Ronquillo NP - Last Filed: 04/27/21 13:11> Motor exam (neuro): 5/5 motor strength present throughout <Ariana Ronquillo NP - Last Filed: 04/27/21 13:11> Extrem: General: Yes normal to inspection, Yes no pedal edema and Yes no calf tenderness <Ariana Ronuqillo NP - Last Filed: 04/27/21 13:11> Course Course Course Narrative: 50-year-old male here with complaints of sore throat for 4 days. Exam is consistent with strep pharyngitis. Will treat with course of antibiotics. Rapid COVID is negative. Reviewed worrisome signs and symptoms of when to return to the emergency department. Comfortable discharge home. <Ariana Ronquillo NP - Last Filed: 04/27/21 13:11> MDM - URI/Sore Throat Medical Records Attestation: I reviewed the patient's medical records. <Ariana Ronquillo NP - Last Filed: 04/27/21 13:11> Lab Data Attestation: I reviewed the patient's lab results. <Ariana Ronquillo NP - Last Filed: 04/27/21 13:11> Labs: Lab Results 04/27/21 04/27/21 Range/Units 12:26 12:26 COVID-19 (NIKO) Negative (Negative) COVID-19 Clin Com See Note S. pyogenes GrpA KAUSHAL Negative (Negative) <Ariana Ronquillo NP - Last Filed: 04/27/21 13:11> Lab Results 04/27/21 04/27/21 Range/Units 12:26 12:26 COVID-19 (NIKO) Negative (Negative) COVID-19 Clin Com See Note S. pyogenes GrpA KAUSHAL Negative (Negative) <Malachi Maher MD - Last Filed: 04/27/21 14:03> Discharge Plan Discharge Clinical Impression: Pharyngitis <Ariana Ronquillo NP - Last Filed: 04/27/21 13:11> Patient Disposition: Home, Self-Care <Ariana Ronquillo NP - Last Filed: 04/27/21 13:11> Instructions: Pharyngitis (ED) <Ariana Ronquillo NP - Last Filed: 04/27/21 13:11> Additional Instructions: Take the antibiotic as prescribed Increase fluids rest Saltwater gargle <Ariana Ronquillo NP - Last Filed: 04/27/21 13:11> Prescriptions: New amoxicillin 500 mg tablet 500 mg PO BID Qty: 20 RF: 0 No Action atorvastatin 40 mg tablet 40 mg PO DAILY 90 Days Qty: 90 RF: 1 furosemide 20 mg tablet 20 mg PO .COMPLEX 90 Days Qty: 36 RF: 4 Trulicity 4.5 mg/0.5 mL pen injector 4.5 mg subcut QWEEK Qty: 2 RF: 4 digoxin 250 mcg (0.25 mg) tablet 250 mcg PO DAILY 90 Days Qty: 90 RF: 1 Lantus Solostar U-100 Insulin 100 unit/mL (3 mL) insulin pen 30 unit subcut QPM 30 Days Qty: 9 RF: 4 carvedilol 25 mg tablet 25 mg PO BID 90 Days Qty: 180 RF: 3 valsartan [Diovan] 80 mg tablet 80 mg PO BID 90 Days Qty: 180 RF: 2 polyethylene glycol 3350 [Miralax] 17 gram/dose powder 17 g PO BID Qty: 119 RF: 3 mineral oil [Fleet Mineral Oil] Enema 118 ml TN DAILY PRN (Reason: constipation) Qty: 6384 RF: 0 multivitamin Capsule 1 cap PO DAILY RF: 0 quetiapine 25 mg tablet 25 mg PO BEDTIME RF: 0 gabapentin 300 mg capsule 300 mg PO DAILY RF: 0 warfarin 5 mg tablet 5 mg PO DAILY RF: 0 docusate sodium 100 mg capsule 100 mg PO DAILY Qty: 30 RF: 3 sennosides [Natural Senna Laxative] 8.6 mg tablet 8.6 mg PO BEDTIME PRN (Reason: constipation) Qty: 30 RF: 1 simethicone 180 mg capsule 180 mg PO TID 30 Days Qty: 90 RF: 3 Entresto 49-51 mg tablet 1 tab PO BID Qty: 60 RF: 5 magnesium citrate Solution 150 ml PO DAILY PRN (Reason: constipation) Qty: 296 RF: 2 omeprazole 20 mg capsule,delayed release(DR/EC) 20 mg PO BID 30 Days Qty: 60 RF: 4 <Ariana Ronquillo NP - Last Filed: 04/27/21 13:11> Referrals: Physician,Unknown J [Primary Care Provider] - 2 days <Ariana Ronquillo NP - Last Filed: 04/27/21 13:11> Interventions: ED Discharge Assessment Last Done: 04/27/21 13:23 <Ariana Ronquillo NP - Last Filed: 04/27/21 13:11> Discharge Date/Time: 04/27/21 13:24 <Ariana Ronquillo NP - Last Filed: 04/27/21 13:11> Print Language: Occitan <Ariana Ronquillo NP - Last Filed: 04/27/21 13:11>
== END 2021-04-27 13:24 | disposition home or self-care (01) ==
PROVIDERS: Emergency Provider Emergency Medicine
DX: J02.9 Acute pharyngitis, unspecified (principal); F17.210 Nicotine dependence, cigarettes, uncomplicated; Z20.822 Contact with and (suspected) exposure to COVID-19; Z71.6 Tobacco abuse counseling; Z79.899 Other long term (current) drug therapy; Z79.01 Long term (current) use of anticoagulants; Z86.718 Personal history of other venous thrombosis and embolism
CPT/HCPCS: 87635; 87651; 99283

== ENCOUNTER 2021-05-11 11:39 | Outpatient (REF) | payer OTHER, SELFPAY ==
[2021-05-11 13:05] LABS: Alanine Aminotransferase 37 U/L (0-40); Albumin Level 4.2 g/dL (3.5-5.0); Alkaline Phosphatase 181 U/L (39-117); Anion Gap 11 (12-20); Aspartate Amino Transferase 22 U/L (5-37); Bilirubin Total 0.6 mg/dL (0.0-1.0); Blood Urea Nitrogen 17 mg/dL (9-16); Calcium 9.3 mg/dL (8.4-10.2); Carbon Dioxide 29 mmol/L (22-29); Chloride 102 mmol/L (96-108); Cholesterol 115 mg/dL; Estimated Glomerular Filt Rate > 60; Glucose Fasting 165 mg/dL (60-99); HDL Cholesterol 25 mg/dL; LDL Cholesterol Calculated 54 mg/dl; Potassium 4.2 mmol/L (3.3-5.1); Sodium 138 mmol/L (135-145); Total Protein 7.3 g/dL (6.5-8.0); Triglycerides 180 mg/dL
[2021-05-11 13:12] LABS: B Type Natriuretic Peptide < 10 pg/mL (<100)
[2021-05-11 14:26] LABS: Creatinine Urine 182.27 mg/dL; Microalbum/Creatinine Ratio Ur 4.9 ug/mg cr
[2021-05-13 04:31] LABS: LDL Cholesterol Direct 60 mg/dL (<100)
== END 2021-05-11 11:40 | disposition home or self-care (01) ==
LOC: HO.LAB 11:39
PROVIDERS: Absent Provider Nurse Practitioner Gerontology; Visit Provider Internal Medicine Cardiovascular Disease
DX: E11.65 Type 2 diabetes mellitus with hyperglycemia (principal); I50.9 Heart failure, unspecified; I42.9 Cardiomyopathy, unspecified; Z79.4 Long term (current) use of insulin; Z86.718 Personal history of other venous thrombosis and embolism; Z51.81 Encounter for therapeutic drug level monitoring; Z79.01 Long term (current) use of anticoagulants
CPT/HCPCS: 36415; 80048; 80053; 80061; 82043; 83721; 83880; 85610; 99212

== ENCOUNTER → 2021-05-14 11:41 | Outpatient (BNVA) | payer OTHER, SELFPAY | PROVIDERS: Visit Provider Internal Medicine | DX: Z86.718 Personal history of other venous thrombosis and embolism (principal); Z51.81 Encounter for therapeutic drug level monitoring; Z79.01 Long term (current) use of anticoagulants | CPT/HCPCS: 85610; 99211 ==

== ENCOUNTER → 2021-05-21 12:58 | Outpatient (BNVA) | payer OTHER, SELFPAY | PROVIDERS: Visit Provider Internal Medicine | DX: Z86.718 Personal history of other venous thrombosis and embolism (principal); Z51.81 Encounter for therapeutic drug level monitoring; Z79.01 Long term (current) use of anticoagulants | CPT/HCPCS: 85610; 99211 ==

== ENCOUNTER → 2021-06-04 11:37 | Outpatient (BNVA) | payer OTHER, SELFPAY | PROVIDERS: Visit Provider Internal Medicine | DX: Z86.718 Personal history of other venous thrombosis and embolism (principal); Z51.81 Encounter for therapeutic drug level monitoring; Z79.01 Long term (current) use of anticoagulants | CPT/HCPCS: 85610; 99211 ==

== ENCOUNTER → 2021-07-02 10:58 | Outpatient (BNVA) | payer OTHER, SELFPAY | PROVIDERS: PCP Nurse Practitioner Family; Visit Provider Internal Medicine | DX: Z86.718 Personal history of other venous thrombosis and embolism (principal); Z51.81 Encounter for therapeutic drug level monitoring; Z79.01 Long term (current) use of anticoagulants | CPT/HCPCS: 85610; 99211 ==

== ENCOUNTER → 2021-08-04 12:06 | Outpatient (BNVA) | payer OTHER, SELFPAY | PROVIDERS: PCP Nurse Practitioner Family; Visit Provider Internal Medicine | DX: Z86.718 Personal history of other venous thrombosis and embolism (principal); Z79.01 Long term (current) use of anticoagulants; Z51.81 Encounter for therapeutic drug level monitoring | CPT/HCPCS: 85610; 99211 ==

== ENCOUNTER 2021-08-16 12:57 | Outpatient (REF) | payer OTHER, SELFPAY ==
[2021-08-16 15:50] LABS: Anion Gap 11 (12-20); Blood Urea Nitrogen 13 mg/dL (9-16); Calcium 9.8 mg/dL (8.4-10.2); Carbon Dioxide 27 mmol/L (22-29); Chloride 106 mmol/L (96-108); Estimated Glomerular Filt Rate > 60; Glucose Random 99 mg/dL (60-115); Sodium 140 mmol/L (135-145)
[2021-08-16 15:54] LABS: Digoxin 0.7 ng/mL (0.8-2.0)
== END 2021-08-16 12:58 | disposition home or self-care (01) ==
LOC: HO.LAB 12:57
PROVIDERS: PCP Nurse Practitioner Family; Referring Provider Nurse Practitioner Family; Visit Provider Internal Medicine Cardiovascular Disease
DX: I50.20 Unspecified systolic (congestive) heart failure (principal); I48.20 Chronic atrial fibrillation, unspecified; I47.2 Ventricular tachycardia; Z79.899 Other long term (current) drug therapy
CPT/HCPCS: 36415; 80048; 80162; 93005; 99212

== ENCOUNTER 2021-08-21 12:15 | Emergency (ER) | payer OTHER, SELFPAY ==
--- NOTE | ~2021-08-21 | XR_ITS ---
EXAMINATION: XR CHEST CLINICAL INFORMATION: Cough. COMPARISON: None TECHNIQUE: 2 views of the chest were obtained. FINDINGS: The lungs are well-expanded but clear of acute pneumonic process. The heart size and pulmonary vascularity is normal. No gross bony abnormality. There are dual pacer electrodes in right atrium and right ventricle. XR/XR chest 2V IMPRESSION: Unremarkable chest exam
[2021-08-21 12:23] VITALS: BP 106/79; PULSE 116; RESP 18; TEMP 37.4; O2SAT 95; BMI 29.8
--- NOTE | 2021-08-21 12:39 | ED.GENADULT ---
HPI - General Adult General Chief complaint: Upper Respiratory Symptoms Stated complaint: dizziness Time Seen by Provider: 08/21/21 12:37 Source: patient and outpatient physical therapist assistant Mode of arrival: ambulatory Limitations: language barrier History of Present Illness HPI narrative: Patient is a 51 year old male/ presenting to the emergency department today with a cough. Patient states that for the last 3 days he has been coughing so much he is getting dizzy. Patient denies any current dizziness, lightheadedness, abdominal pain, nausea, vomiting, fever, chills, blurry vision, double vision, loss of vision, chest pain, difficulty breathing, shortness of breath, back pain, night sweats, pain with urination, increased urinary frequency, increased urinary urgency, blood in his urine or stool, syncope or a near syncopal episode, recent trauma or falls, bowel incontinence, bladder incontinence, bowel retention, bladder retention, or any other complaints at this time. Onset (ago): day(s) Severity: mild Severity scale (1-10): 2 Relieving factors: none Exacerbating factors: none Associated symptoms: cough Treatments prior to arrival: none Related Data Home Medications Medication Instructions Recorded Confirmed gabapentin 300 mg capsule 300 mg PO DAILY 01/06/20 08/16/21 quetiapine 25 mg tablet 25 mg PO BEDTIME 01/06/20 08/16/21 warfarin 5 mg tablet 5 mg PO DAILY 01/20/20 08/16/21 albuterol sulfate 90 mcg/actuation 2 puff INHALATION Q4-6H PRN 06/04/21 08/16/21 aerosol inhaler (ProAir HFA) alcohol swabs (Alcohol Prep Pads) pad TOPICAL DIRECTED 06/04/21 08/16/21 blood sugar diagnostic (FreeStyle #10 ea 06/04/21 08/16/21 Lite Strips) multivitamin with folic acid 400 1 tab PO DAILY 06/04/21 08/16/21 mcg tablet (Tab-A-Parrish) pen needle, diabetic 33 gauge x #100 ea 06/04/21 08/16/21 (Comfort EZ Pen [place]) quetiapine 200 mg tablet 200 mg PO DAILY 08/04/21 08/16/21 Previous Rx's Medication Instructions Recorded docusate sodium 100 mg capsule 100 mg PO DAILY #30 cap 07/15/20 sennosides 8.6 mg tablet (Natural 8.6 mg PO BEDTIME PRN #30 tab 07/15/20 Senna Laxative) simethicone 180 mg capsule 180 mg PO TID 30 Days #90 cap 07/15/20 furosemide 20 mg tablet 20 mg PO .COMPLEX 90 Days #36 tab 11/06/20 mineral oil (Fleet Mineral Oil) 118 ml [place] DAILY PRN #6384 ml 11/14/20 magnesium citrate 150 ml PO DAILY PRN #296 ml 01/04/21 insulin glargine 100 unit/mL (3 30 unit (0.3 mL) SUBCUT QPM 30 03/16/21 mL) subcutaneous pen (Lantus Days #9 ml Solostar U-100 Insulin) valsartan 80 mg tablet (Diovan) 80 mg PO BID 90 Days #180 tab 03/31/21 polyethylene glycol 3350 17 17 g PO BID #119 g 04/13/21 gram/dose oral powder (Miralax) dulaglutide 4.5 mg/0.5 mL 4.5 mg (0.5 mL) SUBCUT QWEEK #2 ml 05/27/21 subcutaneous pen injector (Trulicity) omeprazole 20 mg capsule,delayed 20 mg PO BID #60 cap 07/20/21 release carvedilol 25 mg tablet 25 mg PO BID 90 Days #180 tab 08/16/21 atorvastatin 40 mg tablet 40 mg PO DAILY 90 Days #90 tab 08/20/21 digoxin 250 mcg (0.25 mg) tablet 250 mcg PO DAILY 90 Days #90 tab 08/20/21 Allergies Allergy/AdvReac Type Severity Reaction Status Date / Time No Known Allergies Allergy Verified 08/21/21 12:23 Review of Systems Constitutional: Constitutional: Reports no additional constitutional complaints, Denies chills, Denies fever(s) and Denies night sweats Eyes: Eyes: Reports no additional eye complaints, Denies blurry vision, Denies change in vision, Denies diplopia, Denies eye discharge, Denies loss of vision and Denies eye pain ENT: Denies dizziness Cardiovascular: Cardiovascular: Reports no additional cardiovascular complaints, Denies chest pain, Denies lightheadedness, Denies Loss of Consciousness and Denies dyspnea Respiratory: Respiratory: Reports no additional respiratory complaints, Reports cough and Denies dyspnea Gastrointestinal: Gastrointestinal: Reports no additional gastrointestinal complaints, Denies abdominal pain, Denies melena, Denies hematochezia, Denies change in bowel habits and Denies change in stool character Genitourinary: Genitourinary: Reports no additional male genitourinary complaints, Denies hematuria, Denies oliguria, Denies difficulty urinating, Denies dysuria, Denies urinary frequency, Denies urinary hesitancy, Denies urinary incontinence and Denies urinary urgency Musculoskeletal: Musculoskeletal: Reports no additional musculoskeletal complaints, Denies numbness and Denies tingling Neurologic: Denies dizziness, Denies loss of vision, Denies numbness and Denies tingling Psychiatric: Psychiatric: Reports no additional psychiatric complaints Endocrine: Endocrine: Reports no additional endocrine complaints Hematologic/Lymphatic: Hematologic/Lymphatic: Reports no additional hematologic/lymphatic complaints Allergic/Immunologic: Allergic/Immunologic: Reports no additional allergic/immunologic complaints PMFSH Past Medical History Attestation statement: The following information was validated with the patient. Source: old records reviewed Medical History Cardiomyopathy Controlled diabetes mellitus without complication, with long-term current use of insulin DVT (deep venous thrombosis) Hyperlipidemia LDL goal <100 Prosthetic and other implants, materials and accessory gastroenterology and urology devices associated with adverse incidents Type 2 diabetes mellitus with hyperglycemia, with long-term current use of insulin Type 2 diabetes mellitus with hypoglycemia without coma Surgical History History of implantable cardioverter-defibrillator (ICD) insertion Family History Family History Father No problems noted. Mother Diabetes mellitus CVD (cardiovascular disease) Cancer Uterine cancer Cervical cancer Maternal Grandfather Prostate cancer Social History Social History Alcohol intake: current Alcohol intake frequency: does not drink Patient Tobacco Use Status: Current everyday Tobacco user Cigarettes Per Day: 7 Advance Directives: No Advance Directives Information Provided: No Physical Exam ED Vital Signs: Vital Signs - 24 hr 08/21/21 12:23 Temperature 99.3 F Pulse Rate 116 H Respiratory Rate 18 Blood Pressure 106/79 Pulse Oximetry 95 BMI result Body Mass Index 29.8 Const General: cooperative, no acute distress, alert and awake Nutritional Appearance: well nourished Orientation/consciousness: patient oriented x3 Limitations: no limitations HENMT Head: Yes normal to inspection and Yes atraumatic Ears: hearing grossly normal bilaterally and external ears normal General nose exam: Normal external nose present, no nasal discharge noted and no epistaxis Face and sinus: Yes normal facial exam, No abrasion and No laceration Mouth: Normal oral and palatal mucosa present, no drooling and no muffled voice Eyes General: appearance normal, both eyes and all related structures Periorbital: periorbital findings normal Eyelids: Yes eyelids normal Conjunctivae: conjunctivae normal Pupils: Equal, round and reactive pupils present EOM: EOMs intact bilaterally Neck Neck: Yes normal visual inspection, Yes full ROM and Yes no lymphadenopathy Chest Chest palpation & inspection: normal inspection of the chest Resp Effort & Inspection: normal respiratory effort and able to speak in complete sentences Auscultation: clear to auscultation bilaterally Cardio Rate: regular rate Rhythm: regular rhythm GI Inspection: Yes normal to inspection Neuro General: patient oriented x3 and moves all extremities Cranial nerves: Yes Equal, round and reactive pupils present Cognition (Neuro): normal cognition Motor exam (neuro): 5/5 motor strength present throughout Sensory Exam: Normal double simultaneous stimulation for sensation Coordination: [id number] test normal Extrem General: Yes normal to inspection, Yes full ROM and Yes capillary refill normal Psych Appearance: grossly normal Mental Status: mental status grossly normal Affect: normal affect Attitude: cooperative Thought process: Normal thought process present Thought content: Normal thought content present Insight: Good insight present (Psych) Medical Decision Making MDM Narrative Medical decision making narrative: Patient is a 51 year old male presenting to the emergency department today with a cough. Patient's physical exam was unremarkable. Patient's rapid COVID-19 and Influenza tests were negative. Patient's chest x-ray showed no acute process. I explained my physical exam findings as well as all test results to the patient. I answered all questions asked by the patient. I stressed the importance of the patient taking his medication as prescribed. I stressed the importance of the patient following up with his primary care provider. I stressed the importance of the patient returning to the emergency department immediately if his symptoms were to worsen or if [he/she/they] were to develop any dizziness, shortness of breath, difficulty breathing, chest pain, blurry vision, loss of vision, nausea, vomiting, abdominal pain, fever, chills, back pain, or any other complaints. Patient verbalized agreement and understanding with this treatment plan and discharge. Differential Diagnosis Differential Diagnosis: cough, viral illness Medical Records Medical records reviewed: Yes I reviewed the patient's medical records. Lab Data Lab results reviewed: Yes I reviewed the patient's lab results. Labs: Lab Results 08/21/21 08/21/21 Range/Units 12:29 12:29 COVID-19 ([facility]) Negative (Negative) COVID-19 Clin Com See Note Influenza Type A ([facility]) Negative (Negative) Influenza Type B ([facility]) Negative (Negative) Influenza A & B Note See Note Imaging Data Chest x-ray: Attestation: I personally reviewed and interpreted this imaging study as follows: My impression: No acute process. Radiologist's impression: EXAMINATION: XR CHEST CLINICAL INFORMATION: Cough. COMPARISON: None TECHNIQUE: 2 views of the chest were obtained. FINDINGS: The lungs are well-expanded but clear of acute pneumonic process. The heart size and pulmonary vascularity is normal. No gross bony abnormality. There are dual pacer electrodes in right atrium and right ventricle. XR/XR chest 2V IMPRESSION: Unremarkable chest exam Dictated By: Yon Vera MD Signed By: Electronically signed by Yon Vera MD 08/21/21 1307 Discharge Plan Discharge Clinical Impression: Viral illness Patient Disposition: Home, Self-Care Instructions: Viral Syndrome (ED) Additional Instructions: Follow up with your primary care provider. Return to the emergency department immediately if your symptoms worsen or if you develop any dizziness, shortness of breath, difficulty breathing, chest pain, blurry vision, loss of vision, nausea, vomiting, abdominal pain, fever, chills, back pain, or any other complaints. Prescriptions: No Action furosemide 20 mg tablet 20 mg PO .COMPLEX 90 Days Qty: 36 4RF Rx Instructions: 20 mg PO On Monday, Monday, Monday; Lantus Solostar U-100 Insulin 100 unit/mL (3 mL) insulin pen 30 unit subcut QPM 30 Days Qty: 9 4RF valsartan [Diovan] 80 mg tablet 80 mg PO BID 90 Days Qty: 180 2RF polyethylene glycol 3350 [Miralax] 17 gram/dose powder 17 g PO BID Qty: 119 3RF Trulicity 4.5 mg/0.5 mL pen injector 4.5 mg subcut QWEEK Qty: 2 4RF omeprazole 20 mg capsule,delayed release(DR/EC) 20 mg PO BID Qty: 60 3RF carvedilol 25 mg tablet 25 mg PO BID 90 Days Qty: 180 3RF digoxin 250 mcg (0.25 mg) tablet 250 mcg PO DAILY 90 Days Qty: 90 2RF atorvastatin 40 mg tablet 40 mg PO DAILY 90 Days Qty: 90 2RF mineral oil [Fleet Mineral Oil] Enema 118 ml [place] DAILY PRN (Reason: constipation) Qty: 6384 0RF Rx Instructions: discard any unused portion quetiapine 25 mg tablet 25 mg PO BEDTIME 0RF gabapentin 300 mg capsule 300 mg PO DAILY 0RF warfarin 5 mg tablet 5 mg PO DAILY 0RF Protocol: Dose Management Condition: Monday (Week One) Dose/Route: 5 mg Instruction: 1 x 5 mg tablet Condition: Monday Dose/Route: 2.5 mg Instruction: 0.5 x 5 mg tablets Condition: Monday Dose/Route: 2.5 mg Instruction: 0.5 x 5 mg tablets Condition: Monday Dose/Route: 5 mg Instruction: 1 x 5 mg tablet Condition: Dose/Route: 2.5 mg Instruction: 0.5 x 5 mg tablets Condition: Monday Dose/Route: 2.5 mg Instruction: 0.5 x 5 mg tablets Condition: Monday Dose/Route: 2.5 mg Instruction: 0.5 x 5 mg tablets Condition: Monday (Week Two) Dose/Route: 5 mg Instruction: 1 x 5 mg tablet Condition: Monday Dose/Route: 2.5 mg Instruction: 0.5 x 5 mg tablets Condition: Monday Dose/Route: 2.5 mg Instruction: 0.5 x 5 mg tablets Condition: Monday Dose/Route: 5 mg Instruction: 1 x 5 mg tablet Condition: Dose/Route: 2.5 mg Instruction: 0.5 x 5 mg tablets Condition: Monday Dose/Route: 2.5 mg Instruction: 0.5 x 5 mg tablets Condition: Monday Dose/Route: 2.5 mg Instruction: 0.5 x 5 mg tablets Protocol Text: Adjustment Start Date: Monday08/04/21 INR Value: 2.1 INR Date: 08/04/21 Recheck Date: 09/01/21 docusate sodium 100 mg capsule 100 mg PO DAILY Qty: 30 3RF sennosides [Natural Senna Laxative] 8.6 mg tablet 8.6 mg PO BEDTIME PRN (Reason: constipation) Qty: 30 1RF simethicone 180 mg capsule 180 mg PO TID 30 Days Qty: 90 3RF Rx Instructions: after meals magnesium citrate Solution 150 ml PO DAILY PRN (Reason: constipation) Qty: 296 2RF multivitamin with folic acid [Tab-A-Parrish] 400 mcg tablet 1 tab PO DAILY 0RF (DME) pen needle, diabetic [Comfort EZ Pen [place]] 33 gauge x 5/32 needle See Rx Instructions ea .ROUTE QID Qty: 100 0RF Rx Instructions: As directed albuterol sulfate [ProAir HFA] 90 mcg/actuation HFA aerosol inhaler 2 puff inhalation Q4-6H PRN0RF alcohol swabs [Alcohol Prep Pads] Pads, Medicated topical DIRECTED 0RF (DME) FreeStyle Lite Strips Strip See Rx Instructions strip topical .MEDSUPPLY Qty: 10 0RF Rx Instructions: As directed quetiapine 200 mg tablet 200 mg PO DAILY 0RF Ref[place]: [facility] [place] [facility] [place]] [facility] [place] [facility] [place] Group] [facility] [place] [facility] Group] Interventions: ED Discharge Assessment Last Done: 08/21/21 13:58 Discharge Date/Time: 08/21/21 14:00 Print Language: Czech
[2021-08-21 12:51] LABS: COVID-19 Test Negative (Negative); IDNOW Serial# 16C4AD1C
[2021-08-21 12:53] LABS: Influenza A Negative (Negative); Influenza B2 Negative (Negative)
== END 2021-08-21 14:00 | disposition home or self-care (01) ==
PROVIDERS: Emergency Provider Emergency Medicine Emergency Medical Services
DX: B34.9 Viral infection, unspecified (principal); R05.9 Cough, unspecified; R42 Dizziness and giddiness; F17.210 Nicotine dependence, cigarettes, uncomplicated; Z71.6 Tobacco abuse counseling; Z79.899 Other long term (current) drug therapy; Z20.822 Contact with and (suspected) exposure to COVID-19
CPT/HCPCS: 71046; 87502; 87635; 99283

== ENCOUNTER → 2021-09-06 11:59 | Outpatient (BNVA) | payer OTHER, SELFPAY | PROVIDERS: Visit Provider Internal Medicine | DX: Z86.718 Personal history of other venous thrombosis and embolism (principal); Z79.01 Long term (current) use of anticoagulants; Z51.81 Encounter for therapeutic drug level monitoring | CPT/HCPCS: 85610; 99211 ==

== ENCOUNTER → 2021-10-05 11:00 | Outpatient (BNVA) | payer OTHER, SELFPAY | PROVIDERS: Visit Provider Internal Medicine | DX: Z86.718 Personal history of other venous thrombosis and embolism (principal); Z51.81 Encounter for therapeutic drug level monitoring; Z79.01 Long term (current) use of anticoagulants | CPT/HCPCS: 85610; 99211 ==

== ENCOUNTER → 2021-11-02 12:59 | Outpatient (BNVA) | payer OTHER, SELFPAY | PROVIDERS: PCP Nurse Practitioner Family; Visit Provider Internal Medicine | DX: Z86.718 Personal history of other venous thrombosis and embolism (principal); Z79.01 Long term (current) use of anticoagulants; Z51.81 Encounter for therapeutic drug level monitoring | CPT/HCPCS: 85610; 99211 ==

== ENCOUNTER → 2021-12-02 11:58 | Outpatient (BNVA) | payer OTHER, SELFPAY | PROVIDERS: PCP Nurse Practitioner Family; Visit Provider Internal Medicine | DX: Z86.718 Personal history of other venous thrombosis and embolism (principal); Z51.81 Encounter for therapeutic drug level monitoring; Z79.01 Long term (current) use of anticoagulants | CPT/HCPCS: 85610; 99211 ==

== ENCOUNTER → 2021-12-16 13:04 | Outpatient (BNVA) | payer OTHER, SELFPAY | PROVIDERS: PCP Nurse Practitioner Family; Visit Provider Internal Medicine | DX: Z86.718 Personal history of other venous thrombosis and embolism (principal); Z79.01 Long term (current) use of anticoagulants; Z51.81 Encounter for therapeutic drug level monitoring | CPT/HCPCS: 85610; 99211 ==

== ENCOUNTER → 2021-12-30 13:02 | Outpatient (BNVA) | payer OTHER, SELFPAY | PROVIDERS: PCP Nurse Practitioner Family; Visit Provider Internal Medicine | DX: Z86.718 Personal history of other venous thrombosis and embolism (principal); Z79.01 Long term (current) use of anticoagulants; Z51.81 Encounter for therapeutic drug level monitoring | CPT/HCPCS: 85610; 99211 ==

== ENCOUNTER → 2022-01-13 13:58 | Outpatient (BNVA) | payer OTHER, SELFPAY | PROVIDERS: PCP Nurse Practitioner Family; Visit Provider Internal Medicine | DX: Z86.718 Personal history of other venous thrombosis and embolism (principal); Z51.81 Encounter for therapeutic drug level monitoring; Z79.01 Long term (current) use of anticoagulants | CPT/HCPCS: 85610; 99211 ==

== ENCOUNTER → 2022-02-14 13:07 | Outpatient (BNVA) | payer OTHER, SELFPAY | PROVIDERS: PCP Nurse Practitioner Family; Visit Provider Internal Medicine | DX: Z86.718 Personal history of other venous thrombosis and embolism (principal); Z79.01 Long term (current) use of anticoagulants; Z51.81 Encounter for therapeutic drug level monitoring | CPT/HCPCS: 85610; 99211 ==

== ENCOUNTER 2022-02-21 13:33 | Outpatient (REF) | payer OTHER, SELFPAY ==
[2022-02-21 15:32] LABS: Anion Gap 14 (12-20); Blood Urea Nitrogen 11 mg/dL (9-16); Calcium 9.7 mg/dL (8.4-10.2); Carbon Dioxide 29 mmol/L (22-29); Chloride 102 mmol/L (96-108); Digoxin 0.8 ng/mL (0.8-2.0); Estimated Glomerular Filt Rate > 60; Glucose Random 148 mg/dL (60-115); Sodium 141 mmol/L (135-145)
== END 2022-02-21 13:34 | disposition home or self-care (01) ==
LOC: HO.LAB 13:33
PROVIDERS: PCP Nurse Practitioner Family; Visit Provider Internal Medicine Cardiovascular Disease
DX: I50.20 Unspecified systolic (congestive) heart failure (principal); I47.20 Ventricular tachycardia, unspecified; I48.20 Chronic atrial fibrillation, unspecified; Z95.810 Presence of automatic (implantable) cardiac defibrillator; Z79.899 Other long term (current) drug therapy
CPT/HCPCS: 36415; 80048; 80162; 99212

== ENCOUNTER → 2022-03-07 13:58 | Outpatient (BNVA) | payer OTHER, SELFPAY | PROVIDERS: PCP Nurse Practitioner Family; Visit Provider Internal Medicine | DX: Z86.718 Personal history of other venous thrombosis and embolism (principal); Z79.01 Long term (current) use of anticoagulants; Z51.81 Encounter for therapeutic drug level monitoring | CPT/HCPCS: 85610; 99211 ==

== ENCOUNTER 2022-03-20 11:10 | Emergency (ER) | payer OTHER, SELFPAY ==
--- NOTE | ~2022-03-20 | CT_ITS ---
EXAMINATION: CT ABDOMEN AND PELVIS WITHOUT CONTRAST CLINICAL INFORMATION: Painless hematuria/dysuria . COMPARISON: 06/15/2017. TECHNIQUE: Multidetector volumetric imaging was performed from the superior aspect of the liver through the pubic symphysis without contrast per request. Sagittal and coronal reformatted images were obtained on the technologist workstation. This CT examination was performed using dose optimization techniques as appropriate, variously including the following: *Automated exposure control *Adjustment of mA and/or kV according to patient size (this includes techniques or standardized protocols for targeted exams where dose is matched to indication/reason for exam; i.e. extremities or head) *Use of iterative reconstruction technique DLP: 561 mGy-cm. FINDINGS: LUNG BASES: AICD lead overlying right ventricle. Lungs bases are clear. Calcified granuloma in the left lingula. LIVER, GALLBLADDER, BILIARY TREE: The non-contrast liver is normal in size, shape, and attenuation. No focal hepatic lesion or biliary ductal dilatation is present. The gallbladder is unremarkable with no evidence of radiopaque gallstones, gallbladder wall thickening, or obvious pericholecystic inflammatory changes. PANCREAS: Unremarkable. SPLEEN: Unremarkable. ADRENAL GLANDS: Unremarkable. KIDNEYS AND URETERS: The kidneys are normal in size, shape, and attenuation. No hydronephrosis, hydroureter, or calculi seen. No perinephric stranding. BLADDER: Decompressed but otherwise unremarkable GASTROINTESTINAL TRACT: No colonic wall thickening or pericolonic inflammatory change. Moderate amount of stool seen throughout colon. Visualized small bowel unremarkable ABDOMINAL WALL: No significant hernia is appreciated. LYMPHOVASCULAR STRUCTURES: Mild vascular calcification within the aorta iliac system. IVC filter in place. PELVIC VISCERA: Penile prosthesis partially visualized with a right-sided reservoir OSSEUS STRUCTURES: No acute bony abnormality CT/CT abdomen pelvis wo IV con IMPRESSION: I do not appreciate any acute intra-abdominal process. No renal or ureteric calculi seen. Bladder is decompressed but otherwise unremarkable.
[2022-03-20 11:28] VITALS: BP 138/85; PULSE 86; RESP 18; TEMP 36.7; O2SAT 100; BMI 29.2
--- NOTE | 2022-03-20 11:32 | ED.MALEGU ---
HPI - Male Genitourinary General Chief complaint: General Medical <LEONEL Kitchen - Last Filed: 03/20/22 11:35> Stated complaint: Blood in urine <LEONEL Kitchen - Last Filed: 03/20/22 11:35> Time Seen by Provider: 03/20/22 11:46 <LEONEL Kitchen - Last Filed: 03/20/22 11:35> History of Present Illness HPI Narrative: patient complains of blood in the urine which started today as well as some mild discomfort with urination for 1 day, there is no fever, there is no nausea or vomiting no abdominal pain no back pain no flank pain The patient does take Coumadin and his most recent INR was under 3 <LEONEL Menchaca - Last Filed: 03/20/22 15:51> Related Data Home medications: Home Medications Medication Instructions Recorded Confirmed gabapentin 300 mg capsule 300 mg PO DAILY 01/06/20 02/21/22 quetiapine 25 mg tablet 25 mg PO BEDTIME 01/06/20 02/21/22 albuterol sulfate 90 mcg/actuation 2 puff inhalation Q4-6H PRN Cold 06/04/21 02/21/22 aerosol inhaler (ProAir HFA) Symptoms alcohol swabs (Alcohol Prep Pads) pad topical DIRECTED 06/04/21 02/14/22 blood sugar diagnostic (FreeStyle #10 ea 06/04/21 02/14/22 Lite Strips) multivitamin with folic acid 400 1 tab PO DAILY 06/04/21 02/21/22 mcg tablet (Tab-A-Parrish) pen needle, diabetic 33 gauge x #100 ea 06/04/21 02/14/22 5/32 (Comfort EZ Pen [place]) bupropion HCl 150 mg 24 hr tablet, 0 mg PO 12/02/21 02/21/22 extended release mirtazapine 15 mg tablet 15 mg PO BEDTIME 12/02/21 02/21/22 Previous Rx's Medication Instructions Recorded docusate sodium 100 mg capsule 100 mg PO DAILY #30 caps 07/15/20 sennosides 8.6 mg tablet (Natural 8.6 mg PO BEDTIME PRN constipation 07/15/20 Senna Laxative) #30 tabs simethicone 180 mg capsule 180 mg PO TID 30 days #90 caps 07/15/20 mineral oil (Fleet Mineral Oil 118 ml NM DAILY PRN constipation 11/14/20 enema) #6,384 mL magnesium citrate 150 ml PO DAILY PRN constipation 01/04/21 #296 mL carvedilol 25 mg tablet 25 mg PO BID 90 days #180 tabs 08/16/21 atorvastatin 40 mg tablet 40 mg PO DAILY 90 days #90 tabs 08/20/21 digoxin 250 mcg (0.25 mg) tablet 250 mcg PO DAILY 90 days #90 tabs 08/20/21 polyethylene glycol 3350 17 17 g PO BID constipation #119 grams 08/24/21 gram/dose oral powder (Miralax) insulin glargine 100 unit/mL (3 30 unit (0.3 mL) subcut QPM 30 09/01/21 mL) subcutaneous pen (Lan days #15 mL Solostar U-100 Insulin) warfarin 5 mg tablet 5 mg PO DAILY #90 tabs 10/05/21 dulaglutide 4.5 mg/0.5 mL 4.5 mg (0.5 mL) subcut QWEEK #2 mL 10/07/21 subcutaneous pen injector (Trulicity) warfarin 5 mg tablet 5 mg PO DAILY #90 tabs 10/28/21 furosemide 20 mg tablet 20 mg PO .COMPLEX 90 days #36 tabs 11/12/21 omeprazole 20 mg capsule,delayed 20 mg PO BID #60 caps 12/22/21 release valsartan 80 mg tablet (Diovan) 80 mg PO BID 90 days #180 tabs 02/03/22 nitrofurantoin 100 mg PO Q12H 7 days #14 caps 03/20/22 monohydrate/macrocrystals 100 mg capsule (Macrobid) phenazopyridine 200 mg tablet 200 mg PO TID 6 doses #6 tabs 03/20/22 (Pyridium) <LEONEL Kitchen - Last Filed: 03/20/22 11:35> Allergies/Adverse reactions: Allergies Allergy/AdvReac Type Severity Reaction Status Date / Time No Known Allergies Allergy Verified 03/07/22 14:18 <LEONEL Kitchen - Last Filed: 03/20/22 11:35> Review of Systems Review of Systems: positive for blood in the urine and dysuria Negatives no fever no chills no dizziness no weakness no headache no neck pain no chest pain no shortness of breath no abdominal pain no nausea vomiting or diarrhea no flank pain no back pain no bleeding from any other sites no rash <LEONEL Menchaca - Last Filed: 03/20/22 15:51> Yes all other systems are reviewed and are negative <LEONEL Menchaca - Last Filed: 03/20/22 15:51> PMF Past Medical History Source: nursing notes reviewed <LEONEL Menchaca - Last Filed: 03/20/22 15:51> Medical History: Medical History (Updated 03/20/22 @ 15:44 by LEONEL Menchaca) Cardiomyopathy Controlled diabetes mellitus without complication, with long-term current use of insulin DVT (deep venous thrombosis) Hyperlipidemia LDL goal <100 ICD (implantable cardioverter-defibrillator) in place Prosthetic and other implants, materials and accessory gastroenterology and urology devices associated with adverse incidents Type 2 diabetes mellitus with hyperglycemia, with long-term current use of insulin Type 2 diabetes mellitus with hypoglycemia without coma <LEONEL Kitchen - Last Filed: 03/20/22 11:35> Surgical History: Surgical History History of implantable cardioverter-defibrillator (ICD) insertion <LEONEL Kitchen - Last Filed: 03/20/22 11:35> Family History Family History: Family History Father No problems noted. Mother Diabetes mellitus CVD (cardiovascular disease) Cancer Uterine cancer Cervical cancer Maternal Grandfather Prostate cancer <LEONEL Kitchen - Last Filed: 03/20/22 11:35> Social History Social History: Social History Household Members: None Housing: Apartment Alcohol intake: current Alcohol intake frequency: does not drink Patient Tobacco Use Status: Current everyday Tobacco user Tobacco use type: Cigarette Cigarettes Per Day: 7 Advance Directives: Yes Advance Directives Information Provided: Yes Advance Directives on File: No service: No Current occupational status: unemployed <LEONEL Kitchen - Last Filed: 03/20/22 11:35> Physical Exam Vital Signs: Vital Signs: Last Vital Signs Temp 98.1 F 03/20/22 11:28 Pulse 86 03/20/22 11:28 Resp 18 03/20/22 11:28 BP 138/85 03/20/22 11:28 Pulse Ox 100 03/20/22 11:28 O2 Del Method 03/20/22 11:28 BMI result Body Mass Index 29.2 <LEONEL Kitchen - Last Filed: 03/20/22 11:35> Vital Signs: Last Vital Signs Temp 98.1 F 03/20/22 11:28 Pulse 86 03/20/22 11:28 Resp 18 03/20/22 11:28 BP 138/85 03/20/22 11:28 Pulse Ox 100 03/20/22 11:28 O2 Del Method 03/20/22 11:28 BMI result Body Mass Index 29.2 <LEONEL Menchaca - Last Filed: 03/20/22 15:51> general appearance is no acute distress Eyes anicteric no pallor Pharynx mucous membranes moist no redness swelling or exudate No respiratory distress Chest clear to auscultation bilateral Abdomen soft nontender The back no CVA tenderness no flank tenderness no back tenderness Genital exam normal appearance no discharge The rectal exam was nontender prostate was not swollen or boggy or tender Extremities no edema <LEONEL Menchaca - Last Filed: 03/20/22 15:51> Course Course Course Narrative: RME-11:35PM - 51-year-old male presenting to the ED with complaints of dysuria with painless hematuria that started today. Reports that dysuria started maybe 1-2 days ago. Denies any abdominal pain. Reports he has never had this in the past. Denies any other symptoms complaints or concerns at this time. Plan: Patient is stable. Labs will be ordered and a CT scan abdomen pelvis with IV contrast and UA. Patient will go back to the waiting room. <LEONEL Kitchen - Last Filed: 03/20/22 11:35> RME-11:35PM - 51-year-old male presenting to the ED with complaints of dysuria with painless hematuria that started today. Reports that dysuria started maybe 1-2 days ago. Denies any abdominal pain. Reports he has never had this in the past. Denies any other symptoms complaints or concerns at this time. Plan: Patient is stable. Labs will be ordered and a CT scan abdomen pelvis with IV contrast and UA. Patient will go back to the waiting room. patient had CT of abdomen and pelvis that was negative, urinalysis was positive for blood with high rbc's, WBC was 0 to 5 nitrite was negative bacteria none seen squamous epithelials 0 to 2 INR was 2.6, renal function was normal creatinine was 1.1, WBC was 7.3 Because of his discomfort with urination he is treated for cystitis with Macrobid, possible UTI versus painless hematuria possibly from his Coumadin but no Coumadin adjustment as is INR is 2.6 <LEONEL Menchaca - Last Filed: 03/20/22 15:51> Medical Decision Making Lab Data Result Diagrams: : 03/20/22 12:03 03/20/22 12:02 <LEONEL Kitchen - Last Filed: 03/20/22 11:35> Labs: Lab Results 03/20/22 03/20/22 03/20/22 Range/Units 11:48 12:02 12:03 WBC 7.3 (4.8-10.8) X10*3/uL RBC 4.84 (4.60-5.80) X10*6/uL Hgb 14.4 (14.0-18.0) g/dl Hct 42.8 (42.0-52.0) % MCV 88.4 (80.0-98.0) fL MCH 29.8 (27.0-33.0) pg MCHC 33.6 (31.0-36.0) g/dl RDW 12.0 (11.0-16.0) % Plt Count 188 (160-400) X10*3/uL MPV 10.7 (9.4-12.4) fL Immature Gran % (Auto) 0.3 (0.0-0.4) % Neut % (Auto) 72.7 (45-73) % Lymph % (Auto) 17.0 L (20-40) % [place] % (Auto) 7.7 (2-11) % Eos % (Auto) 1.9 (0-4) % Baso % (Auto) 0.4 (0-2) % Lymph # (Auto) 1.2 (1.2-4.9) X10*3/uL [place] # (Auto) 0.6 (0.1-1.2) X10*3/uL Eos # (Auto) 0.1 (0.0-0.4) X10*3/uL Baso # (Auto) 0.0 (0.0-0.2) X10*3/uL Abs Immat Gran (auto) 0.02 (0.00-0.03) X10*3/uL Absolute Neuts (auto) 5.3 (2.0-8.3) x10*3/uL Absolute Nucleated RBC 0.000 (0.0-0.012) X10*3/uL Nucleated RBC % (auto) 0.0 (0.0-0.2) /100WBC PT (10.0-13.1) SEC INR (0.9-1.1) Sodium 137 (135-145) mmol/L Potassium 4.9 D (3.3-5.1) mmol/L Chloride 103 (96-108) mmol/L Carbon Dioxide 24 (22-29) mmol/L Anion Gap 15 (12-20) BUN 12 (9-16) mg/dL Creatinine 1.11 (0.5-1.4) mg/dL Estim Creat Clear Calc 74.7 Estimated GFR > 60 Random Glucose 142 H (60-115) mg/dL Calcium 9.6 (8.4-10.2) mg/dL Magnesium 2.0 (1.6-2.6) mg/dL Total Bilirubin 0.7 (0.0-1.0) mg/dL Direct Bilirubin 0.3 (0.0-0.5) mg/dL AST 28 (5-37) U/L ALT 29 (0-40) U/L Alkaline Phosphatase 191 H (39-117) U/L Total Protein 7.7 (6.5-8.0) g/dL Albumin 4.6 (3.5-5.0) g/dL Urine Color RED Urine Appearance Turbid Urine pH 6.5 (5.0-9.0) Ur Specific [place] >= 1.030 H (1.005-1.025) Urine Protein 300 (3+) H (Neg-Trace) mg/dL Urine Glucose (UA) 100 H (Negative) mg/dL Urine Ketones Trace (Negative) mg/dL Urine Blood Large (3+) H (Negative) Urine Nitrite Negative (Negative) Ur Leukocyte Esterase Negative (Negative) Urine RBC >20 H (0-2) /HPF Urine WBC 0-5 (0-5) /HPF Ur Squamous Epith Cells 0-2 (0-2) /HPF Urine Bacteria None Seen (None Seen) Hyaline Casts 0-2 (0-2) /LPF 03/20/ Range/Units 13:53 WBC (4.8-10.8) X10*3/uL RBC (4.60-5.80) X10*6/uL Hgb (14.0-18.0) g/dl Hct (42.0-52.0) % MCV (80.0-98.0) fL MCH (27.0-33.0) pg MCHC (31.0-36.0) g/dl RDW (11.0-16.0) % Plt Count (160-400) X10*3/uL MPV (9.4-12.4) fL Immature Gran % (Auto) (0.0-0.4) % Neut % (Auto) (45-73) % Lymph % (Auto) (20-40) % [place] % (Auto) (2-11) % Eos % (Auto) (0-4) % Baso % (Auto) (0-2) % Lymph # (Auto) (1.2-4.9) X10*3/uL [place] # (Auto) (0.1-1.2) X10*3/uL Eos # (Auto) (0.0-0.4) X10*3/uL Baso # (Auto) (0.0-0.2) X10*3/uL Abs Immat Gran (auto) (0.00-0.03) X10*3/uL Absolute Neuts (auto) (2.0-8.3) x10*3/uL Absolute Nucleated RBC (0.0-0.012) X10*3/uL Nucleated RBC % (auto) (0.0-0.2) /100WBC PT 30.7 H (10.0-13.1) SEC INR 2.6 H (0.9-1.1) Sodium (135-145) mmol/L Potassium (3.3-5.1) mmol/L Chloride (96-108) mmol/L Carbon Dioxide (22-29) mmol/L Anion Gap (12-20) BUN (9-16) mg/dL Creatinine (0.5-1.4) mg/dL Estim Creat Clear Calc Estimated GFR Random Glucose (60-115) mg/dL Calcium (8.4-10.2) mg/dL Magnesium (1.6-2.6) mg/dL Total Bilirubin (0.0-1.0) mg/dL Direct Bilirubin (0.0-0.5) mg/dL AST (5-37) U/L ALT (0-40) U/L Alkaline Phosphatase (39-117) U/L Total Protein (6.5-8.0) g/dL Albumin (3.5-5.0) g/dL Urine Color Urine Appearance Urine pH (5.0-9.0) Ur Specific [place] (1.005-1.025) Urine Protein (Neg-Trace) mg/dL Urine Glucose (UA) (Negative) mg/dL Urine Ketones (Negative) mg/dL Urine Blood (Negative) Urine Nitrite (Negative) Ur Leukocyte Esterase (Negative) Urine RBC (0-2) /HPF Urine WBC (0-5) /HPF Ur Squamous Epith Cells (0-2) /HPF Urine Bacteria (None Seen) Hyaline Casts (0-2) /LPF <LEONEL Kitchen - Last Filed: 03/20/22 11:35> Lab Results 03/20/22 03/20/22 03/20/22 Range/Units 11:48 12:02 12:03 WBC 7.3 (4.8-10.8) X10*3/uL RBC 4.84 (4.60-5.80) X10*6/uL Hgb 14.4 (14.0-18.0) g/dl Hct 42.8 (42.0-52.0) % MCV 88.4 (80.0-98.0) fL MCH 29.8 (27.0-33.0) pg MCHC 33.6 (31.0-36.0) g/dl RDW 12.0 (11.0-16.0) % Plt Count 188 (160-400) X10*3/uL MPV 10.7 (9.4-12.4) fL Immature Gran % (Auto) 0.3 (0.0-0.4) % Neut % (Auto) 72.7 (45-73) % Lymph % (Auto) 17.0 L (20-40) % [place] % (Auto) 7.7 (2-11) % Eos % (Auto) 1.9 (0-4) % Baso % (Auto) 0.4 (0-2) % Lymph # (Auto) 1.2 (1.2-4.9) X10*3/uL [place] # (Auto) 0.6 (0.1-1.2) X10*3/uL Eos # (Auto) 0.1 (0.0-0.4) X10*3/uL Baso # (Auto) 0.0 (0.0-0.2) X10*3/uL Abs Immat Gran (auto) 0.02 (0.00-0.03) X10*3/uL Absolute Neuts (auto) 5.3 (2.0-8.3) x10*3/uL Absolute Nucleated RBC 0.000 (0.0-0.012) X10*3/uL Nucleated RBC % (auto) 0.0 (0.0-0.2) /100WBC PT (10.0-13.1) SEC INR (0.9-1.1) Sodium 137 (135-145) mmol/L Potassium 4.9 D (3.3-5.1) mmol/L Chloride 103 (96-108) mmol/L Carbon Dioxide 24 (22-29) mmol/L Anion Gap 15 (12-20) BUN 12 (9-16) mg/dL Creatinine 1.11 (0.5-1.4) mg/dL Estim Creat Clear Calc 74.7 Estimated GFR > 60 Random Glucose 142 H (60-115) mg/dL Calcium 9.6 (8.4-10.2) mg/dL Magnesium 2.0 (1.6-2.6) mg/dL Total Bilirubin 0.7 (0.0-1.0) mg/dL Direct Bilirubin 0.3 (0.0-0.5) mg/dL AST 28 (5-37) U/L ALT 29 (0-40) U/L Alkaline Phosphatase 191 H (39-117) U/L Total Protein 7.7 (6.5-8.0) g/dL Albumin 4.6 (3.5-5.0) g/dL Urine Color RED Urine Appearance Turbid Urine pH 6.5 (5.0-9.0) Ur Specific [place] >= 1.030 H (1.005-1.025) Urine Protein 300 (3+) H (Neg-Trace) mg/dL Urine Glucose (UA) 100 H (Negative) mg/dL Urine Ketones Trace (Negative) mg/dL Urine Blood Large (3+) H (Negative) Urine Nitrite Negative (Negative) Ur Leukocyte Esterase Negative (Negative) Urine RBC >20 H (0-2) /HPF Urine WBC 0-5 (0-5) /HPF Ur Squamous Epith Cells 0-2 (0-2) /HPF Urine Bacteria None Seen (None Seen) Hyaline Casts 0-2 (0-2) /LPF 03/20/22 Range/Units 13:53 WBC (4.8-10.8) X10*3/uL RBC (4.60-5.80) X10*6/uL Hgb (14.0-18.0) g/dl Hct (42.0-52.0) % MCV (80.0-98.0) fL MCH (27.0-33.0) pg MCHC (31.0-36.0) g/dl RDW (11.0-16.0) % Plt Count (160-400) X10*3/uL MPV (9.4-12.4) fL Immature Gran % (Auto) (0.0-0.4) % Neut % (Auto) (45-73) % Lymph % (Auto) (20-40) % [place] % (Auto) (2-11) % Eos % (Auto) (0-4) % Baso % (Auto) (0-2) % Lymph # (Auto) (1.2-4.9) X10*3/uL [place] # (Auto) (0.1-1.2) X10*3/uL Eos # (Auto) (0.0-0.4) X10*3/uL Baso # (Auto) (0.0-0.2) X10*3/uL Abs Immat Gran (auto) (0.00-0.03) X10*3/uL Absolute Neuts (auto) (2.0-8.3) x10*3/uL Absolute Nucleated RBC (0.0-0.012) X10*3/uL Nucleated RBC % (auto) (0.0-0.2) /100WBC PT 30.7 H (10.0-13.1) SEC INR 2.6 H (0.9-1.1) Sodium (135-145) mmol/L Potassium (3.3-5.1) mmol/L Chloride (96-108) mmol/L Carbon Dioxide (22-29) mmol/L Anion Gap (12-20) BUN (9-16) mg/dL Creatinine (0.5-1.4) mg/dL Estim Creat Clear Calc Estimated GFR Random Glucose (60-115) mg/dL Calcium (8.4-10.2) mg/dL Magnesium (1.6-2.6) mg/dL Total Bilirubin (0.0-1.0) mg/dL Direct Bilirubin (0.0-0.5) mg/dL AST (5-37) U/L ALT (0-40) U/L Alkaline Phosphatase (39-117) U/L Total Protein (6.5-8.0) g/dL Albumin (3.5-5.0) g/dL Urine Color Urine Appearance Urine pH (5.0-9.0) Ur Specific [place] (1.005-1.025) Urine Protein (Neg-Trace) mg/dL Urine Glucose (UA) (Negative) mg/dL Urine Ketones (Negative) mg/dL Urine Blood (Negative) Urine Nitrite (Negative) Ur Leukocyte Esterase (Negative) Urine RBC (0-2) /HPF Urine WBC (0-5) /HPF Ur Squamous Epith Cells (0-2) /HPF Urine Bacteria (None Seen) Hyaline Casts (0-2) /LPF <LEONEL Menchaca - Last Filed: 03/20/22 15:51> Discharge Plan Discharge Clinical Impression: Urinary tract infection, Hematuria <LEONEL Kitchen - Last Filed: 03/20/22 11:35> Patient Disposition: Home, Self-Care <LEONEL Kitchen - Last Filed: 03/20/22 11:35> Additional Instructions: we are treating for probable urinary tract infection with Macrobid Pyridium may reduce discomfort with urination Follow with your doctor or urologist next week Return to the ER any time for increased bleeding worse pain fever vomiting bleeding from any other sites any worse condition or any concerns <LEONEL Kitchen - Last Filed: 03/20/22 11:35> Prescriptions: New nitrofurantoin monohyd/m-cryst [Macrobid] 100 mg capsule 100 mg PO Q12H 7 Days Qty: 14 0RF Rx Instructions: must administer with a meal/food phenazopyridine [Pyridium] 200 mg tablet 200 mg PO TID Qty: 6 0RF No Action carvedilol 25 mg tablet 25 mg PO BID 90 Days Qty: 180 3RF digoxin 250 mcg (0.25 mg) tablet 250 mcg PO DAILY 90 Days Qty: 90 2RF atorvastatin 40 mg tablet 40 mg PO DAILY 90 Days Qty: 90 2RF polyethylene glycol 3350 [Miralax] 17 gram/dose powder 17 g PO BID Qty: 119 3RF Lantus Solostar U-100 Insulin 100 unit/mL (3 mL) insulin pen 30 unit subcut QPM 30 Days Qty: 15 6RF Trulicity 4.5 mg/0.5 mL pen injector 4.5 mg subcut QWEEK Qty: 2 6RF warfarin 5 mg Tablet 5 mg PO DAILY Qty: 90 4RF Protocol: Dose Management Condition: Monday (Week One) Dose/Route: 5 mg Instruction: 1 x 5 mg tablet Condition: Monday Dose/Route: 5 mg Instruction: 1 x 5 mg tablet Condition: Monday Dose/Route: 2.5 mg Instruction: 0.5 x 5 mg tablets Condition: Monday Dose/Route: 5 mg Instruction: 1 x 5 mg tablet Condition: Dose/Route: 2.5 mg Instruction: 0.5 x 5 mg tablets Condition: Monday Dose/Route: 2.5 mg Instruction: 0.5 x 5 mg tablets Condition: Monday Dose/Route: 2.5 mg Instruction: 0.5 x 5 mg tablets Condition: Monday (Week Two) Dose/Route: 5 mg Instruction: 1 x 5 mg tablet Condition: Monday Dose/Route: 2.5 mg Instruction: 0.5 x 5 mg tablets Condition: Monday Dose/Route: 2.5 mg Instruction: 0.5 x 5 mg tablets Condition: Monday Dose/Route: 5 mg Instruction: 1 x 5 mg tablet Condition: Dose/Route: 2.5 mg Instruction: 0.5 x 5 mg tablets Condition: Monday Dose/Route: 2.5 mg Instruction: 0.5 x 5 mg tablets Condition: Monday Dose/Route: 2.5 mg Instruction: 0.5 x 5 mg tablets Protocol Text: Adjustment Start Date: Monday03/07/22 INR Value: 1.8 INR Date: 03/07/22 Recheck Date: 03/21/22 Rx Instructions: To take as directed by the [facility] furosemide 20 mg tablet 20 mg PO .COMPLEX 90 Days Qty: 36 3RF Rx Instructions: 20 mg PO On Monday, Monday, Monday; omeprazole 20 mg capsule,delayed release(DR/EC) 20 mg PO BID Qty: 60 3RF valsartan [Diovan] 80 mg tablet 80 mg PO BID 90 Days Qty: 180 3RF mineral oil [Fleet Mineral Oil] Enema 118 ml NM DAILY PRN (Reason: constipation) Qty: 6384 0RF Rx Instructions: discard any unused portion warfarin 5 mg tablet 5 mg PO DAILY Qty: 90 3RF Protocol: Dose Management Condition: Monday (Week One) Dose/Route: 5 mg Instruction: 1 x 5 mg tablet Condition: Monday Dose/Route: 5 mg Instruction: 1 x 5 mg tablet Condition: Monday Dose/Route: 2.5 mg Instruction: 0.5 x 5 mg tablets Condition: Monday Dose/Route: 5 mg Instruction: 1 x 5 mg tablet Condition: Dose/Route: 2.5 mg Instruction: 0.5 x 5 mg tablets Condition: Monday Dose/Route: 2.5 mg Instruction: 0.5 x 5 mg tablets Condition: Monday Dose/Route: 2.5 mg Instruction: 0.5 x 5 mg tablets Condition: Monday (Week Two) Dose/Route: 5 mg Instruction: 1 x 5 mg tablet Condition: Monday Dose/Route: 2.5 mg Instruction: 0.5 x 5 mg tablets Condition: Monday Dose/Route: 2.5 mg Instruction: 0.5 x 5 mg tablets Condition: Monday Dose/Route: 5 mg Instruction: 1 x 5 mg tablet Condition: Dose/Route: 2.5 mg Instruction: 0.5 x 5 mg tablets Condition: Monday Dose/Route: 2.5 mg Instruction: 0.5 x 5 mg tablets Condition: Monday Dose/Route: 2.5 mg Instruction: 0.5 x 5 mg tablets Protocol Text: Adjustment Start Date: Monday03/07/22 INR Value: 1.8 INR Date: 03/07/22 Recheck Date: 03/21/22 Rx Instructions: take as directed quetiapine 25 mg tablet 25 mg PO BEDTIME gabapentin 300 mg capsule 300 mg PO DAILY docusate sodium 100 mg capsule 100 mg PO DAILY Qty: 30 3RF sennosides [Natural Senna Laxative] 8.6 mg tablet 8.6 mg PO BEDTIME PRN (Reason: constipation) Qty: 30 1RF simethicone 180 mg capsule 180 mg PO TID 30 Days Qty: 90 3RF Rx Instructions: after meals magnesium citrate Solution 150 ml PO DAILY PRN (Reason: constipation) Qty: 296 2RF multivitamin with folic acid [Tab-A-Parrish] 400 mcg tablet 1 tab PO DAILY (DME) pen needle, diabetic [Comfort EZ Pen [place]] 33 gauge x 5/32 needle See Rx Instructions .ROUTE QID Qty: 100 Rx Instructions: As directed albuterol sulfate [ProAir HFA] 90 mcg/actuation HFA aerosol inhaler 2 puff inhalation Q4-6H PRN (Reason: Cold Symptoms) alcohol swabs [Alcohol Prep Pads] Pads, Medicated topical DIRECTED (DME) FreeStyle Lite Strips Strip See Rx Instructions topical .MEDSUPPLY Qty: 10 Rx Instructions: As directed bupropion HCl 150 mg tablet extended release 24 hr 0 mg PO mirtazapine 15 mg tablet 15 mg PO BEDTIME <LEONEL Kitchen - Last Filed: 03/20/22 11:35> Referrals: Fareed Dixon MD [Physician] - ( hematuria) <LEONEL Kitchen - Last Filed: 03/20/22 11:35>
--- NOTE | 2022-03-20 11:49 | PC.NURSE ---
pt. states he has hematuria x 2 days and pain 5/10 on groin area.
[2022-03-20 12:03] LABS: Appearance Urine Turbid; Color Urine RED; Glucose Urine UA 100 mg/dL (Negative); Leukocyte Esterase Urine Negative (Negative); Nitrite Urine Negative (Negative); PH 6.5 (5.0-9.0); UMIC TRIGGER UACC YES; Urine Blood Large (3+) (Negative); Urine Ketones Trace mg/dL (Negative); Urine Protein 300 (3+) mg/dL (Neg-Trace)
--- NOTE | 2022-03-20 12:06 | PC.NURSE ---
use straight stick to draw and sent to lab
[2022-03-20 12:09] LABS: MANUAL DIFF FLAG NO
[2022-03-20 12:11] LABS: Specific Gravity - Urine >= 1.030 (1.005-1.025)
[2022-03-20 12:12] LABS: Bacteria Urine None Seen (None Seen); Hyaline Casts Urine 0-2 /LPF (0-2); RBC Urine >20 /HPF (0-2); Squamous Epithelial Cell Urine 0-2 /HPF (0-2); WBC Urine 0-5 /HPF (0-5)
[2022-03-20 12:15] LABS: Basophils Percent Auto 0.4 % (0-2); Eosinophils Absolute Auto 0.1 X10*3/uL (0.0-0.4); Eosinophils Percent Auto 1.9 % (0-4); Hematocrit 42.8 % (42.0-52.0); Hemoglobin 14.4 g/dl (14.0-18.0); Imm Gran Abs Auto 0.02 X10*3/uL (0.00-0.03); Imm Gran Pct Auto 0.3 % (0.0-0.4); Lymphocytes Absolute Auto 1.2 X10*3/uL (1.2-4.9); Mean Corpuscular HGB Conc 33.6 g/dl (31.0-36.0); Mean Corpuscular Hemoglobin 29.8 pg (27.0-33.0); Mean Corpuscular Volume 88.4 fL (80.0-98.0); Mean Platelet Volume 10.7 fL (9.4-12.4); Monocytes Absolute Auto 0.6 X10*3/uL (0.1-1.2); Monocytes Percent Auto 7.7 % (2-11); Neutrophils Absolute Auto 5.3 x10*3/uL (2.0-8.3); Neutrophils Percent Auto 72.7 % (45-73); Platelet Count 188 X10*3/uL (160-400); Red Blood Count 4.84 X10*6/uL (4.60-5.80); White Blood Count 7.3 X10*3/uL (4.8-10.8)
[2022-03-20 12:26] LABS: Alanine Aminotransferase 29 U/L (0-40); Albumin Level 4.6 g/dL (3.5-5.0); Alkaline Phosphatase 191 U/L (39-117); Anion Gap 15 (12-20); Aspartate Amino Transferase 28 U/L (5-37); Bilirubin Total 0.7 mg/dL (0.0-1.0); Blood Urea Nitrogen 12 mg/dL (9-16); Calcium 9.6 mg/dL (8.4-10.2); Carbon Dioxide 24 mmol/L (22-29); Chloride 103 mmol/L (96-108); Creatinine Clr Calc Pharmacy 74.7; Estimated Glomerular Filt Rate > 60; Glucose Random 142 mg/dL (60-115); Potassium 4.9 mmol/L (3.3-5.1); Sodium 137 mmol/L (135-145); Total Protein 7.7 g/dL (6.5-8.0)
--- NOTE | 2022-03-20 13:55 | PC.NURSE ---
nuno PT/INR. sent to lab
[2022-03-20 14:03] LABS: INTERNATIONAL NORM RATIO 2.6 (0.9-1.1); Prothrombin Time 30.7 SEC (10.0-13.1)
[2022-03-20 15:22] LABS: Bilirubin Direct 0.3 mg/dL (0.0-0.5)
[2022-03-20] MEDS: Nitrofurantoin Monohyd/M-Cryst 100 MG CAPSULE PO (15:47)
[2022-03-20] MEDS: Phenazopyridine HCL 200 MG TABLET PO (15:47)
[2022-03-20 16:34] LABS: CT PCR NOT DETECTED (Not Detect.); NG PCR NOT DETECTED (Not Detect.)
== END 2022-03-20 15:58 | disposition home or self-care (01) ==
PROVIDERS: Physician Assistant Medical; Emergency Provider Emergency Medicine; PCP Nurse Practitioner Family
DX: N39.0 Urinary tract infection, site not specified (principal); R31.9 Hematuria, unspecified; R10.9 Unspecified abdominal pain; R30.0 Dysuria; Z79.899 Other long term (current) drug therapy
CPT/HCPCS: 36415; 74176; 80053; 81001; 81003; 82248; 83735; 85025; 85610; 87491; 87591; 99284

== ENCOUNTER → 2022-04-08 13:00 | Outpatient (BNVA) | payer OTHER, SELFPAY | PROVIDERS: PCP Nurse Practitioner Family; Visit Provider Internal Medicine | DX: Z86.718 Personal history of other venous thrombosis and embolism (principal); Z79.01 Long term (current) use of anticoagulants; Z51.81 Encounter for therapeutic drug level monitoring | CPT/HCPCS: 85610; 99211 ==

== ENCOUNTER → 2022-05-12 13:03 | Outpatient (BNVA) | payer OTHER, SELFPAY | PROVIDERS: PCP Nurse Practitioner Family; Visit Provider Internal Medicine | DX: Z86.718 Personal history of other venous thrombosis and embolism (principal); Z79.01 Long term (current) use of anticoagulants; Z51.81 Encounter for therapeutic drug level monitoring | CPT/HCPCS: 85610; 99211 ==

== ENCOUNTER → 2022-06-06 13:14 | Outpatient (BNVA) | payer OTHER, SELFPAY | PROVIDERS: PCP Nurse Practitioner Family; Visit Provider Internal Medicine | DX: Z86.718 Personal history of other venous thrombosis and embolism (principal); Z79.01 Long term (current) use of anticoagulants; Z51.81 Encounter for therapeutic drug level monitoring | CPT/HCPCS: 85610; 99211 ==

== ENCOUNTER → 2022-06-20 13:02 | Outpatient (BNVA) | payer OTHER, SELFPAY | PROVIDERS: PCP Nurse Practitioner Family; Visit Provider Internal Medicine | DX: I82.501 Chronic embolism and thrombosis of unspecified deep veins of right lower extremity (principal); Z79.01 Long term (current) use of anticoagulants; Z51.81 Encounter for therapeutic drug level monitoring | CPT/HCPCS: 85610; 99211 ==

== ENCOUNTER → 2022-07-04 13:11 | Outpatient (BNVA) | payer OTHER, SELFPAY | PROVIDERS: PCP Nurse Practitioner Family; Visit Provider Internal Medicine | DX: Z86.718 Personal history of other venous thrombosis and embolism (principal); Z79.01 Long term (current) use of anticoagulants; Z51.81 Encounter for therapeutic drug level monitoring | CPT/HCPCS: 85610; 99211 ==

== ENCOUNTER → 2022-07-19 13:01 | Outpatient (BNVA) | payer OTHER, SELFPAY | PROVIDERS: PCP Nurse Practitioner Family; Visit Provider Internal Medicine | DX: Z86.718 Personal history of other venous thrombosis and embolism (principal); Z79.01 Long term (current) use of anticoagulants; Z51.81 Encounter for therapeutic drug level monitoring | CPT/HCPCS: 85610; 99211 ==

== ENCOUNTER → 2022-07-26 13:00 | Outpatient (BNVA) | payer OTHER, SELFPAY | PROVIDERS: PCP Nurse Practitioner Family; Visit Provider Internal Medicine | DX: Z86.718 Personal history of other venous thrombosis and embolism (principal); Z79.01 Long term (current) use of anticoagulants; Z51.81 Encounter for therapeutic drug level monitoring | CPT/HCPCS: 85610; 99211 ==

== ENCOUNTER → 2022-07-27 11:03 | Outpatient (REF) | payer OTHER, SELFPAY ==
--- NOTE | 2022-07-27 11:05 | CA_ITS ---
Transthoracic Echocardiogram Patient (Last, First, Middle): Dereck Bynum A Gender: Male Date of : 1970 Age: 52 Procedure Date: 07/27/2022 Procedure Type: Transthoracic Echocardiogram Location: OP Height: 162.56 cm Weight: 75.01 kg BSA: 1.80 m2 Heart Rate: bpm BP: 110 / 62 mmHg Tennis Instructor: TO Referring MD: Arturo Gonzalez MD Pipe Bending Machine Operator: Arturo Gonzalez MD Symptoms: I50.20 - Unspecified systolic (congestive) heart failure Study Quality: Fair/Contrast ECG Rhythm: Sinus Conclusions: - 1. Moderately dilated left ventricle with moderate to severe LV systolic dysfunction with LVEF of 30 35% 2. Mild aortic regurgitation 3. Normal RV systolic pressure 4. No pericardial effusion Findings Procedure Information Contrast agent, definity, is being given per protocol without apparent complications. Left Ventricle Moderately increased left ventricular cavity size. There is normal left ventricular wall thickness. The left ventricular systolic function is moderate to severely decreased. The visually estimated ejection fraction is between 30-35%. Spectral Doppler is indicative of an impaired relaxation filling pattern. E/E prime ratio is <8, consistent with normal filling pressures. Evidence suggests grade I (mild) diastolic dysfunction. Heavy trabeculation of the apex which could suggest non compaction Right Ventricle Normal right ventricular cavity size. There is borderline right ventricular systolic function. There is an ICD wire seen in the right ventricle. Atria The left atrium is likely dilated. Interatrial shunt cannot be excluded. The right atrium is normal in size. Aortic Valve There is mild calcification of the aortic valve. There is moderate thickening of the aortic valve. There is no aortic valve stenosis. There is mild aortic valve regurgitation. Mitral Valve There is mild anterior and posterior mitral leaflet thickening. There is no mitral valve regurgitation. There is no mitral valve stenosis. Pulmonic Valve The pulmonic valve is likely normal. Tricuspid Valve Normal tricuspid valve structure. There is mild tricuspid valve regurgitation. The right ventricular systolic pressure is normal. The right ventricular systolic pressure is 26 mmHg. Normal right atrial pressure. There is no evidence of pulmonary hypertension. Great Vessels All visible segments of the aorta are normal in size. The pulmonary artery was not well visualized. Venous The inferior vena cava is normal in size and collapses greater than 50% with inspiration. Pericardium/Pleural There is no evidence of pericardial effusion. Prior Study Comparison Changes noted compared to prior study dated: 04/13/2021. LV systolic function is marginally improved Measurements 2D Linear Measurements IVSd: 0.79 0.6-0.9/0.6-1.0 cm LVIDd: 6.58 3.9-5.3/4.2-5.9 cm LVIDd Index: 3.66 2.4-3.2/2.2-3.1 cm/m2 LVIDs: 5.74 2.0-3.6 cm LVPWd: 0.77 0.7-1.1 cm LA Diam: 3.50 2.7-3.8/3.0-4.0 cm LAIDs Index: 1.94 1.5-2.3 cm/m2 LV Mass: 264.43 67-162/88-224 g LV Mass Index: 146.91 43-95/49-115 g/m2 LVOT Diam: 2.50 3.0+(-)1.3 cm 2D Systolic Function EF 4C: 31.90 >55% EF 2C: 37.60 >55% EF BiP: 35.00 >55% Mitral Valve MV Pk E: 0.41 MV PK A: 0.48 MV Decel Time: 239.00 E/A: 0.90 E'Lateral: 7.83 E'Medial: 4.57 E/E' Med: 9.00 E/E' Lat: 5.20 PHT: 70.00 MVA PHT: 3.14 Decel [place]: 1.72 Aortic Valve AoV Pk Mian: 1.31 AoV Mn Mian: 0.97 AoV VTI: 0.23 AoV Pk Grad: 7.00 Aov Mn Grad: 4.00 MELANIA Cont.VTI: 2.43 AI Pk Mian: 4.34 AI [place]: 2.73 AI Alias Mian: 0.35 ERO - PISA: 13.00 LVOT LVOT Pk Mian: 0.61 LVOT Mn Mian: 0.44 LVOT VTI: 0.11 LVOT Pk Grad: 2.00 LVOT Mn Grad: 1.00 LVOT Diam: 2.50 LVOT Area: 4.91 Diastolic Function MV Pk E: 0.41 MV Pk A: 0.48 E/A: 0.90 E'Medial: 4.57 E/E' Med: 9.00 E' Laterial: 7.83 E/E' Lat: 5.20 Right Ventricle TAPSE (mm): 16.10 TVS' Mian: 11.60 Tricuspid Valve TR Pk Mian: 2.38 TR Pk Grad: 23.00 RA Press: 3.00 RVSP: 26.00 Great Vessels Aorta Sinus of Valsalva: 3.65 2.0-3.5 cm Ao Asc: 3.50 2.1-3.4 cm Updated in Other Vendor System with Status of Final Arturo Gonzalez MD electronically signed on 07/27/2022 3:35:36 PM with status of Final
== END ==
LOC: HO.CARD 11:03
PROVIDERS: PCP Nurse Practitioner Family; Visit Provider Internal Medicine Cardiovascular Disease
DX: I50.20 Unspecified systolic (congestive) heart failure (principal)
CPT/HCPCS: 93306; Q9957

== ENCOUNTER → 2022-08-04 12:58 | Outpatient (BNVA) | payer OTHER, SELFPAY | PROVIDERS: PCP Nurse Practitioner Family; Referring Provider Nurse Practitioner Family; Visit Provider Internal Medicine Cardiovascular Disease | DX: I50.20 Unspecified systolic (congestive) heart failure (principal); I47.20 Ventricular tachycardia, unspecified; Z79.899 Other long term (current) drug therapy; Z45.02 Encounter for adjustment and management of automatic implantable cardiac defibrillator | CPT/HCPCS: 99212 ==

== ENCOUNTER → 2022-08-12 13:15 | Outpatient (BNVA) | payer OTHER, SELFPAY | PROVIDERS: PCP Nurse Practitioner Family; Visit Provider Internal Medicine | DX: Z86.718 Personal history of other venous thrombosis and embolism (principal); Z79.01 Long term (current) use of anticoagulants; Z51.81 Encounter for therapeutic drug level monitoring | CPT/HCPCS: 85610; 99211 ==

== ENCOUNTER → 2022-10-04 23:59 | Outpatient (BNV) | payer OTHER, SELFPAY ==
--- NOTE | 2022-10-11 11:25 | MHC.OFFVIS ---
Intake Intake Visit Reasons: Remote ICD Check- [place] Allergies No Known Allergies Allergy (Verified 08/12/22 13:16) COUNTS INCLUDE 234 BEDS AT THE [facility] Medical History Cardiomyopathy Controlled diabetes mellitus without complication, with long-term current use of insulin DVT (deep venous thrombosis) Hyperlipidemia LDL goal <100 ICD (implantable cardioverter-defibrillator) in place Prosthetic and other implants, materials and accessory gastroenterology and urology devices associated with adverse incidents Type 2 diabetes mellitus with hyperglycemia, with long-term current use of insulin Type 2 diabetes mellitus with hypoglycemia without coma Surgical History History of implantable cardioverter-defibrillator (ICD) insertion Family History Father No problems noted. Mother Diabetes mellitus CVD (cardiovascular disease) Cancer Uterine cancer Cervical cancer Maternal Grandfather Prostate cancer Social History Household Members: None Housing: Apartment Alcohol intake: current Alcohol intake frequency: does not drink Patient Tobacco Use Status: Current everyday Tobacco user Tobacco use type: Cigarette Cigarettes Per Day: 7 service: No Current occupational status: unemployed Office Procedures Cardiac Device Check Cardiac Device Check Details: Remote ICD report generated 10/04/2022. ICD function is adequate. Multiple episodes [place]ained [place] [id number] Cardiac Interrogation, implant defibrillator w/interim Procedure code (CPT) selection complete Coding Level of Care Code Procedure Only Diagnoses CPT Codes Cardiac Device Check - Cardiac Device 13: [id number] Cardiac Interrogation, implant defibrillator w/interim ([id number])
== END ==
PROVIDERS: PCP Nurse Practitioner Family; Visit Provider Internal Medicine Cardiovascular Disease
DX: I47.20 Ventricular tachycardia, unspecified (principal); Z95.810 Presence of automatic (implantable) cardiac defibrillator
CPT/HCPCS: 93295

== ENCOUNTER → 2023-01-03 23:59 | Outpatient (BNV) | payer OTHER, SELFPAY ==
--- NOTE | 2023-01-03 14:16 | MHC.OFFVIS ---
Intake Intake Visit Reasons: Remote ICD Check- [facility] Allergies No Known Allergies Allergy (Verified 08/12/22 13:16) [facility] Medical History Cardiomyopathy Controlled diabetes mellitus without complication, with long-term current use of insulin DVT (deep venous thrombosis) Hyperlipidemia LDL goal <100 ICD (implantable cardioverter-defibrillator) in place Prosthetic and other implants, materials and accessory gastroenterology and urology devices associated with adverse incidents Type 2 diabetes mellitus with hyperglycemia, with long-term current use of insulin Type 2 diabetes mellitus with hypoglycemia without coma Surgical History History of implantable cardioverter-defibrillator (ICD) insertion Family History Father No problems noted. Mother Diabetes mellitus CVD (cardiovascular disease) Cancer Uterine cancer Cervical cancer Maternal Grandfather Prostate cancer Social History Household Members: None Housing: Apartment Alcohol intake: current Alcohol intake frequency: does not drink Patient Tobacco Use Status: Current everyday Tobacco user Tobacco use type: Cigarette Cigarettes Per Day: 7 service: No Current occupational status: unemployed Office Procedures Cardiac Device Check Cardiac Device Check Details: Remote ICD report generated 01/03/2023. ICD function is adequate [id number] Cardiac Interrogation, implant defibrillator w/interim Procedure code (CPT) selection complete Coding Level of Care Code Procedure Only CPT Codes Cardiac Device Check - Cardiac Device 13: [id number] Cardiac Interrogation, implant defibrillator w/interim ([id number])
== END ==
PROVIDERS: PCP Nurse Practitioner Family; Visit Provider Internal Medicine Cardiovascular Disease
DX: I42.9 Cardiomyopathy, unspecified (principal); Z95.810 Presence of automatic (implantable) cardiac defibrillator
CPT/HCPCS: 93295

== ENCOUNTER 2023-02-20 11:57 | Outpatient (AMB) | payer OTHER, SELFPAY ==
[2023-02-20 13:13] VITALS: BP 120/72; PULSE 67; BMI 28.5
--- NOTE | 2023-02-20 13:13 | A.OFFVIS_ITS ---
Intake Vital Signs 02/20/23 13:13 Height 5 ft 5 in Weight 171 lb 8.314 oz BMI 28.5 BP 120/72 Blood Pressure Location Lt brachial Position Sitting Pulse 67 Pulse Source Pulse Oximeter Intake Visit Reasons: [facility]/up Diffusion Operator Required: Yes Diffusion Operator Language: Card Grinder Helper Name: ryann stephens [id number] Allergies No Known Allergies Allergy (Verified 02/20/23 13:15) Medication List - Last Reconciled 02/20/23 by RACHELLE Andersen albuterol sulfate 90 mcg/actuation (ProAir HFA) 2 puffs inhalation Q4-6H PRN alcohol swabs (Alcohol Prep Pads) pad topical DIRECTED atorvastatin 40 mg PO DAILY blood sugar diagnostic (FreeStyle Lite Strips) As directed bupropion HCl 0 mg PO bupropion HCl 300 mg PO DAILY carvedilol 25 mg PO BID 90 days digoxin 250 mcg PO DAILY docusate sodium 100 mg PO DAILY dulaglutide (Trulicity) 4.5 mg (0.5 mL) subcut QWEEK empagliflozin (Jardiance) 10 mg PO DAILY furosemide 20 mg PO 3XW gabapentin 300 mg PO DAILY insulin glargine (Lantus Solostar U-100 Insulin) 45 units (0.45 mL) subcut QPM 30 days magnesium citrate 150 mL PO DAILY PRN mineral oil (Fleet Mineral Oil enema) 118 mL GA DAILY PRN mirtazapine 15 mg PO BEDTIME multivitamin with folic acid 400 mcg (Tab-A-Parrish) 1 tab PO DAILY nitrofurantoin monohyd/m-cryst 100 mg (Macrobid) 100 mg PO Q12H 7 days omeprazole 20 mg PO BID pen needle, diabetic (Comfort EZ Pen [place]) As directed phenazopyridine (Pyridium) 200 mg PO TID 6 doses polyethylene glycol 3350 (Miralax) 17 grams PO BID quetiapine 25 mg PO BEDTIME quetiapine 200 mg PO BEDTIME sacubitril-valsartan 24-26 mg (Entresto) 1 tab PO BID sennosides (Natural Senna Laxative) 8.6 mg PO BEDTIME PRN simethicone 180 mg PO TID 30 days warfarin 5 mg See Protocol PO DAILY warfarin 5 mg See Protocol PO DAILY HPI [facility]/up HPI Details Dereck is a 52-year-old male with past medical history of hyperlipidemia, diabetes, heart failure with reduced EF, nonischemic cardiomyopathy, [employer] [place] [employer] ICD who presents for follow-up. Today he reports he has been feeling well with no concerning symptoms. He denies chest discomfort, shortness of breath, palpitations, presyncope, syncope, PND, orthopnea or edema. He takes his meds as directed. No bleeding issues reported. On Coumadin for noncardiac reason/ DVT. [facility] Medical History ICD (implantable cardioverter-defibrillator) in place Type 2 diabetes mellitus with hyperglycemia, with long-term current use of insulin Type 2 diabetes mellitus with hypoglycemia without coma Hyperlipidemia LDL goal <100 Controlled diabetes mellitus without complication, with long-term current use of insulin Prosthetic and other implants, materials and accessory gastroenterology and urology devices associated with adverse incidents DVT (deep venous thrombosis) Cardiomyopathy Surgical History History of implantable cardioverter-defibrillator (ICD) insertion Family History Father No problems noted. Mother Diabetes mellitus CVD (cardiovascular disease) Cancer Uterine cancer Cervical cancer Maternal Grandfather Prostate cancer Social History Household Members: None Housing: Apartment Alcohol intake: current Alcohol intake frequency: does not drink Patient Tobacco Use Status: Current everyday Tobacco user Tobacco use type: Cigarette Cigarettes Per Day: 7 service: No Current occupational status: unemployed Review of Systems Const All systems reviewed & are unremarkable except as noted in HPI and below ENT Denies dizziness Card Denies chest pain, Denies chest pain at rest, Denies chest pain with activity, Denies rapid heart rate, Denies pedal edema, Denies edema, Denies leg edema, Denies lightheadedness, Denies palpitations, Denies dyspnea, Denies dyspnea on exertion and Denies orthopnea Resp Denies cough, Denies dyspnea and Denies dyspnea on exertion GI Denies hematochezia and Denies change in stool character Musc Denies abnormal gait, Denies limited range of motion, Denies muscle cramps, Denies muscle weakness, Denies numbness, Denies radiating pain into limb, Denies stiffness and Denies tingling Neuro Denies abnormal gait, Denies dizziness, Denies numbness and Denies tingling Endo Denies palpitations Physical Exam Vital Signs: Last Vital Signs Pulse 67 02/20/23 13:13 BP 120/72 02/20/23 13:13 BMI result Body Mass Index 28.5 Const General: cooperative, healthy appearing, comfortable and no acute distress Orientation/consciousness: patient oriented x3 Neck Neck: Yes normal visual inspection Resp Effort & Inspection: normal respiratory effort Auscultation: clear to auscultation bilaterally, no crackles, no rales, no rhonchi and no wheezes Cardio Jugular venous distension: no JVD Rate: regular rate Rhythm: regular rhythm Heart sounds: S1 normal heart sound present, S2 normal heart sound present, no murmurs and no rubs Neuro General: patient oriented x3 Extrem General: Yes normal to inspection Psych Appearance: grossly normal Mental Status: mental status grossly normal Speech and movement: Normal speech and movement present Office Procedures Cardiac Device Check Cardiac Device Check Details: [employer] dual-chamber ICD/ pacemaker interrogation today, DDDR mode, base rate 60, a paced 4%, V paced less than 1%, battery 2.5 years, no VT or VF, no therapies, right atrial threshold 0.6 at 0.5, RV threshold 0.7 at 0.5, functioning normally [id number] Cardiac Device Check, dual lead implantable defibrillator Procedure code (CPT) selection complete Assessment & Plan Assessment & Plan (1) Cardiomyopathy: Comment: 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 Last echocardiogram done 07/27/2022 showing EF 30-35%, mild aortic regurgitation, normal RV systolic pressure, no pericardial effusion. He is on Entresto and carvedilol for neurohormonal modulation. He is on digoxin presumably for heart failure. He takes Lasix 3 times weekly. On examination today he has no clinical signs of decompensated h eart failure. Signs and symptoms of heart failure reviewed with him. Will update labs including BMP and digoxin level. Cardiology follow-up in 6 months, sooner if needed (2) ICD (implantable cardioverter-defibrillator) in place: Comment: [employer] [place] [employer] dual-chamber ICD in place, 2011 Code(s): Z95.810 - Presence of automatic (implantable) cardiac defibrillator Plan: [employer] [place] [employer] dual-chamber ICD in place. Functioning normally on interrogation today. Has remote monitoring in use. Next office interrogation due in 6 months. (3) Heart failure with reduced ejection fraction: Code(s): I50.20 - Unspecified systolic (congestive) heart failure Plan: EF 30-35%. No signs of heart failure on exam today. No med changes made Orders: Orders Basic Metabolic Panel 02/21/23 I50.20 - Unspecified systolic (congestive) heart failure Digoxin 02/21/23 I48.20 - Chronic atrial fibrillation, unspecified, I50.20 - Unspecified systolic (congestive) heart failure Coding Level of Care Code Est Pt Level 4 (71811) Diagnoses Other cardiomyopathy I42.8 Cardiomyopathy type: other ICD (implantable cardioverter-defibrillator) in place Z95.810 Heart failure with reduced ejection fraction I50.20 CPT Codes Cardiac Device Check - Cardiac Device 5: [id number] Cardiac Device Check, dual lead implantable defibrillator ([id number]) Time Spent (min) 28
== END 2023-02-20 13:41 | disposition home or self-care (01) ==
PROVIDERS: PCP Nurse Practitioner Family; Visit Provider Nurse Practitioner Family
DX: I42.8 Other cardiomyopathies (principal); Z95.810 Presence of automatic (implantable) cardiac defibrillator; I50.20 Unspecified systolic (congestive) heart failure
CPT/HCPCS: 93283; 99214

== ENCOUNTER → 2023-02-20 11:57 | Outpatient (BNVA) | payer OTHER, SELFPAY | PROVIDERS: PCP Nurse Practitioner Family; Visit Provider Nurse Practitioner Family | DX: Z45.02 Encounter for adjustment and management of automatic implantable cardiac defibrillator (principal); I42.8 Other cardiomyopathies; I50.20 Unspecified systolic (congestive) heart failure | CPT/HCPCS: 99212 ==

== ENCOUNTER 2023-03-28 15:04 | Emergency (ER) | payer OTHER, SELFPAY ==
--- NOTE | ~2023-03-28 | XR_ITS ---
EXAMINATION: XR CHEST CLINICAL INFORMATION: Chest pain and shortness of breath COMPARISON: Previous chest x-ray August 2021 TECHNIQUE: Frontal view of the chest was obtained. FINDINGS: The cardiac and mediastinal contours are stable. There is a left subclavian dual chamber pacemaker/AICD device that appears unchanged. The lungs are clear. There is no pleural effusion or pneumothorax. No acute bone abnormality. XR/XR chest 1V IMPRESSION: No evidence for acute disease in the chest.
[2023-03-28 15:18] VITALS: BP 130/85; PULSE 79; RESP 20; TEMP 35.9; O2SAT 98; BMI 29.5
[2023-03-28 16:34] LABS: Influenza A PCR NEGATIVE (Negative); Influenza B PCR NEGATIVE (Negative); Resp Syncy Virus RNA Qual PCR NEGATIVE (Negative); SARS COV2 PCR INHOUSE NEGATIVE (Negative)
[2023-03-28 19:53] VITALS: BP 129/84; PULSE 80; RESP 16; TEMP 37.6; O2SAT 97
--- NOTE | 2023-03-28 20:03 | ECG_ITS ---
Test Reason : DIZZINESS Blood Pressure : / mmHG Vent. Rate : 060 BPM Atrial Rate : 060 BPM P-R Int : 174 ms QRS Dur : 114 ms QT Int : 368 ms P-R-T Axes : 043 057 193 degrees QTc Int : 368 ms Atrial-paced rhythm Left ventricular hypertrophy with repolarization abnormality ( Sokolow-Ward ) Abnormal ECG When compared with ECG of 15-JUN-2017 05:43, Electronic atrial pacemaker has replaced Sinus rhythm Vent. rate has decreased BY 48 BPM Nonspecific T wave abnormality now evident in Inferior leads Referred By: Joceline Vazquez Electronically Signed By:ANNA PEREZ
--- NOTE | 2023-03-28 20:18 | ED.GENADULT ---
HPI - General Adult General Chief complaint: General Medical Stated complaint: dizziness Time Seen by Provider: 03/28/23 19:57 Source: patient and family Mode of arrival: ambulatory Limitations: no limitations History of Present Illness HPI narrative: Patient comes to the emergency room accompanied by his sister. According to the patient, he has neighbors who smoke crack and marijuana. Patient states that when he gets the fumes from the neighbors, he starts feeling lightheaded. Patient denies any syncopal episodes. Patient denies any chest pain or shortness of breath. Patient has an extensive cardiac history, denies asthma or COPD. At this time, patient states that he feels well. Patient is mostly symptomatic when he is at home after inhaling a strong odor of THC. Also patient states that he feels weak when he stands Related Data Home Medications Medication Instructions Recorded Confirmed gabapentin 300 mg capsule 300 mg PO DAILY 01/06/20 02/20/23 quetiapine 25 mg tablet 25 mg PO BEDTIME 01/06/20 02/20/23 albuterol sulfate 90 mcg/actuation 2 puff inhalation Q4-6H PRN Cold 06/04/21 02/20/23 aerosol inhaler (ProAir HFA) Symptoms alcohol swabs (Alcohol Prep Pads) pad topical DIRECTED 06/04/21 02/20/23 blood sugar diagnostic (FreeStyle #10 ea 06/04/21 02/20/23 Lite Strips) multivitamin with folic acid 400 1 tab PO DAILY 06/04/21 02/20/23 mcg tablet (Tab-A-Parrish) pen needle, diabetic 33 gauge x #100 ea 06/04/21 02/20/23 5/32 (Comfort EZ Pen [place]) bupropion HCl 150 mg 24 hr tablet, 0 mg PO 12/02/21 02/20/23 extended release mirtazapine 15 mg tablet 15 mg PO BEDTIME 12/02/21 02/20/23 empagliflozin 10 mg tablet 10 mg PO DAILY 06/06/22 02/20/23 (Jardiance) quetiapine 200 mg tablet 200 mg PO BEDTIME 06/06/22 02/20/23 bupropion HCl 300 mg 24 hr tablet, 300 mg PO DAILY 07/04/22 02/20/23 extended release Previous Rx's Medication Instructions Recorded docusate sodium 100 mg capsule 100 mg PO DAILY #30 caps 07/15/20 sennosides 8.6 mg tablet (Natural 8.6 mg PO BEDTIME PRN constipation 07/15/20 Senna Laxative) #30 tabs simethicone 180 mg capsule 180 mg PO TID 30 days #90 caps 07/15/20 mineral oil (Fleet Mineral Oil 118 ml RI DAILY PRN constipation 11/14/20 enema) #6,384 mL magnesium citrate 150 ml PO DAILY PRN constipation 01/04/21 #296 mL polyethylene glycol 3350 17 17 g PO BID constipation #119 grams 08/24/21 gram/dose oral powder (Miralax) warfarin 5 mg tablet 5 mg PO DAILY #90 tabs 10/05/21 dulaglutide 4.5 mg/0.5 mL 4.5 mg (0.5 mL) subcut QWEEK #2 mL 10/07/21 subcutaneous pen injector (Trulicity) warfarin 5 mg tablet 5 mg PO DAILY #90 tabs 10/28/21 omeprazole 20 mg capsule,delayed 20 mg PO BID #60 caps 12/22/21 release nitrofurantoin 100 mg PO Q12H 7 days #14 caps 03/20/22 monohydrate/macrocrystals 100 mg capsule (Macrobid) phenazopyridine 200 mg tablet 200 mg PO TID 6 doses #6 tabs 03/20/22 (Pyridium) insulin glargine 100 unit/mL (3 45 unit (0.45 mL) subcut QPM 30 07/19/22 mL) subcutaneous pen (Lantus days #13.5 mL Solostar U-100 Insulin) sacubitril 24 mg-valsartan 26 mg 1 tab PO BID #180 tabs 08/05/22 tablet (Entresto) carvedilol 25 mg tablet 25 mg PO BID 90 days #180 tabs 11/22/22 digoxin 250 mcg (0.25 mg) tablet 250 mcg PO DAILY #90 tabs 11/22/22 furosemide 20 mg tablet 20 mg PO 3XW #36 tabs 11/30/22 atorvastatin 40 mg tablet 40 mg PO DAILY #30 tabs 12/13/22 Allergies Allergy/AdvReac Type Severity Reaction Status Date / Time No Known Allergies Allergy Verified 03/28/23 15:18 Review of Systems Review of Systems: Constitutional : No Weight loss, No Fever, No Chills, No Night Sweats, No Fatigue, No Malaise ENT/Mouth : No Hearing loss, No Ear Pain, No Nasal Congestion, No Sinus Pain, No Hoarseness, No sore throat, No Rhinorrhea, No Swallowing Difficulty Eyes: No Eye Pain, No Swelling, No Redness, No Foreign Body, No Discharge, No Vision Changes Cardiovascular : No Chest Pain, No SOB, No Dyspnea on Exertion, No Orthopnea, No Edema, No Palpitations Respiratory : No Cough, No Sputum, No Wheezing, No Smoke Exposure, No Dyspnea Gastrointestinal : No Nausea, No Vomiting, No Diarrhea, No Constipation, No abdominal Pain, No Hematochezia, No Melena Genitourinary : no irregular bleeding, No Dysuria, No Urinary Frequency, No Hematuria, No Urinary Incontinence, No Urgency, No Flank Pain, No Urinary Flow Changes, No Hesitancy Musculoskeletal : No joint pain, No Myalgias, No Joint Swelling Skin : No Skin Lesions, No rash Neuro : No Weakness, No Numbness, No Paresthesias, No Loss of Consciousness, patient reports lightheadedness with standing occasionally and also frequently when he smells marijuana. No Headache Psych : No Anxiety/Panic, No Depression, No SI/HI/AH/VH, No Social Issues, Heme/Lymph: No Bruising, No Bleeding,No Lymphadenopathy Endocrine : No Polyuria, No Polydipsia, No Temperature Intolerance PMFSH Past Medical History Medical History ICD (implantable cardioverter-defibrillator) in place Type 2 diabetes mellitus with hyperglycemia, with long-term current use of insulin Type 2 diabetes mellitus with hypoglycemia without coma Hyperlipidemia LDL goal <100 Controlled diabetes mellitus without complication, with long-term current use of insulin Prosthetic and other implants, materials and accessory gastroenterology and urology devices associated with adverse incidents DVT (deep venous thrombosis) Cardiomyopathy Surgical History History of implantable cardioverter-defibrillator (ICD) insertion Family History Family History Father No problems noted. Mother Diabetes mellitus CVD (cardiovascular disease) Cancer Uterine cancer Cervical cancer Maternal Grandfather Prostate cancer Social History Social History Household Members: None Housing: Apartment Alcohol intake: current Alcohol intake frequency: does not drink Patient Tobacco Use Status: Current everyday Tobacco user Tobacco use type: Cigarette Cigarettes Per Day: 7 Advance Directives: No Advance Directives Information Provided: No service: No Current occupational status: unemployed Physical Exam ED Vital Signs: Vital Signs - 24 hr 03/28/23 15:18 03/28/23 19:53 03/28/23 20:58 Temperature 96.6 F L 99.6 F Pulse Rate 79 80 71 Respiratory Rate 20 16 Blood Pressure 130/85 129/84 117/67 Pulse Oximetry 98 97 Oxygen Delivery Method Room Air Room Air 03/28/23 20:59 03/28/23 21:00 Temperature Pulse Rate 67 57 Respiratory Rate Blood Pressure 119/70 109/57 L Pulse Oximetry Oxygen Delivery Method BMI result Body Mass Index 29.5 Const Other: Appearance: Alert. Oriented X3. No acute distress. Eyes: Pupils equal, round and reactive to light. ENT: Pharynx normal. Neck: Normal inspection. Neck supple. No lymph nodes noted. No crepitus CVS: Normal heart rate and rhythm. Pulses normal. Normal S1 and S2 Respiratory: No respiratory distress. Breath sounds normal. No Wheezing. No rales Abdomen: Soft and nontender. No rigidity. No distention. Skin: Skin warm and dry. Normal skin color. Normal skin turgor. Extremities: No lower extremity edema. No Lacerations. No Rash Neuro: Oriented X 3. No motor deficit. No sensory deficit. Moving all extremities. No slurred speech. CN 2 through 12 grossly intact Psych: calm, cooperative, normal affect Course Course Course Narrative: -all of patient's labs and imaging pending. -at this time, patient is asymptomatic, blood pressure 129/84, heart rate 80, 97% on room air -my interpretation of labs/neurology: Negative for influenza, RSV and COVID Medical Decision Making Medical Decision Making MDM Narrative: -my interpretation of chest x-ray: No infiltrates -My interpretation of EKG: Atrial paced rhythm, heart rate 60, chronic ST segment depression in V4 through V6 seen in previous EKGs, QTC 368 -my interpretation of labs: Normal hematology, chemistry unremarkable, troponin negative, urine toxicology negative, EtOH negative, orthostatic vitals negative, serology negative for influenza RSV and COVID -patient's vital stable, patient asymptomatic -I discussed with the patient to speak with his landlord regarding the current social situation of neighbors smoking marijuana and crack in a building were smoking and drug use is not allowed. -patient's dizziness is likely receive a go? . It is only limited to when he smelled marijuana or crack cocaine Differential Diagnosis Differential Diagnoses: The differential diagnosis associated with the presentation includes (ACS, orthostatic hypotension, viral URI) Admission/Observation Consideration of admission/observation: Escalation of care including admission/observation considered (Given patient's history and complaints, patient was considered) Lab Data MDM Lab Attestation statement: I reviewed the patient's lab results. 03/28/23 21:13 03/28/23 21:13 Labs: Lab Results 03/28/23 03/28/23 Range/Units 15:45 21:13 WBC 8.0 (4.8-10.8) X10*3/uL RBC 5.10 (4.60-5.80) X10*6/uL Hgb 15.0 (14.0-18.0) g/dl Hct 44.1 (42.0-52.0) % MCV 86.5 (80.0-98.0) fL MCH 29.4 (27.0-33.0) pg MCHC 34.0 (31.0-36.0) g/dl RDW 13.1 (11.0-16.0) % Plt Count 156 L (160-400) X10*3/uL MPV 10.7 (9.4-12.4) fL Immature Gran % (Auto) 0.3 (0.0-0.4) % Neut % (Auto) 61.9 (45-73) % Lymph % (Auto) 27.4 (20-40) % [place] % (Auto) 7.7 (2-11) % Eos % (Auto) 2.4 (0-4) % Baso % (Auto) 0.3 (0-2) % Lymph # (Auto) 2.2 (1.2-4.9) X10*3/uL [place] # (Auto) 0.6 (0.1-1.2) X10*3/uL Eos # (Auto) 0.2 (0.0-0.4) X10*3/uL Baso # (Auto) 0.0 (0.0-0.2) X10*3/uL Abs Immat Gran (auto) 0.02 (0.00-0.03) X10*3/uL Absolute Neuts (auto) 4.9 (2.0-8.3) x10*3/uL Absolute Nucleated RBC 0.000 (0.0-0.012) X10*3/uL Nucleated RBC % (auto) 0.0 (0.0-0.2) /100WBC PT 22.5 H (11.1-13.3) SEC INR 1.8 H (0.9-1.1) Sodium 141 (135-145) mmol/L Potassium 3.7 D (3.3-5.1) mmol/L Chloride 104 (96-108) mmol/L Carbon Dioxide 27 (22-29) mmol/L Anion Gap 14 (12-20) BUN 18 H (9-16) mg/dL Creatinine 1.05 (0.5-1.4) mg/dL Estim Creat Clear Calc 78.5 Estimated GFR > 60 Random Glucose 151 H (60-115) mg/dL Calcium 9.4 (8.4-10.2) mg/dL Magnesium 2.0 (1.6-2.6) mg/dL Total Bilirubin 0.6 (0.0-1.0) mg/dL Direct Bilirubin 0.2 (0.0-0.5) mg/dL AST 21 (5-37) U/L ALT 24 (0-40) U/L Alkaline Phosphatase 191 H (39-117) U/L Troponin I High Sens 5.0 (<3.5-35.0) ng/L Total Protein 8.1 H (6.5-8.0) g/dL Albumin 4.5 (3.5-5.0) g/dL Urine Opiates Screen Not Detected (Not Detect) Urine Fentanyl Screen Not Detected (Not Detect) Ur Barbiturates Screen Not Detected (Not Detect) Ur Phencyclidine Scrn Not Detected (Not Detect) Ur Amphetamines Screen Not Detected (Not Detect) U Benzodiazepines Scrn Not Detected (Not Detect) Urine Cocaine Screen Not Detected (Not Detect) U Marijuana (THC) Screen Not Detected (Not Detect) Ethyl Alcohol < 10 mg/dL Influenza Type A (PCR) NEGATIVE (Negative) Influenza Type B (PCR) NEGATIVE (Negative) RSV RNA Qual (PCR) NEGATIVE (Negative) SARS-CoV-2 RNA (RT-PCR) NEGATIVE (Negative) Independent Interpretation I performed an independent interpretation of an: Plain X-Ray Radiology Impression Discussion of test interpretation with radiology: I have reviewed the radiologist's reading. Radiologist Impression: FINDINGS: The cardiac and mediastinal contours are stable. There is a left subclavian dual chamber pacemaker/AICD device that appears unchanged. The lungs are clear. There is no pleural effusion or pneumothorax. No acute bone abnormality. XR/XR chest 1V IMPRESSION: No evidence for acute disease in the chest. Independent Historian Clinical information obtained from an independent historian. History obtained from or confirmed by: Other (Patient's sister) Critical Care Time Critical Care Time Critical Care Time: Yes Total Critical Care Time: 45 Attestation: I have personally provided critical care time. Time includes review of lab data, radiology results, discussion with consultants, and monitoring for potential decompensation. Intervention performed as documented. Discharge Plan Discharge Clinical Impression: Dizziness Patient Disposition: Home, Self-Care Instructions: Dizziness (ED) Additional Instructions: Please follow-up with your primary care physician tomorrow. If you have any worsening or new symptoms, please return to the emergency room or call 911 Prescriptions: No Action polyethylene glycol 3350 [Miralax] 17 gram/dose powder 17 g PO BID Qty: 119 3RF Trulicity 4.5 mg/0.5 mL pen injector 4.5 mg subcut QWEEK Qty: 2 6RF warfarin 5 mg Tablet 5 mg PO DAILY Qty: 90 4RF Protocol: Dose Management Condition: Monday (Week One) Dose/Route: 5 mg Instruction: 1 x 5 mg tablet Condition: Monday Dose/Route: 2.5 mg Instruction: 0.5 x 5 mg tablets Condition: Monday Dose/Route: 2.5 mg Instruction: 0.5 x 5 mg tablets Condition: Monday Dose/Route: 2.5 mg Instruction: 0.5 x 5 mg tablets Condition: Dose/Route: 2.5 mg Instruction: 0.5 x 5 mg tablets Condition: Monday Dose/Route: 0 mg Instruction: 0 tablets Condition: Monday Dose/Route: 2.5 mg Instruction: 0.5 x 5 mg tablets Condition: Monday (Week Two) Dose/Route: 5 mg Instruction: 1 x 5 mg tablet Condition: Monday Dose/Route: 2.5 mg Instruction: 0.5 x 5 mg tablets Condition: Monday Dose/Route: 2.5 mg Instruction: 0.5 x 5 mg tablets Condition: Monday Dose/Route: 2.5 mg Instruction: 0.5 x 5 mg tablets Condition: Dose/Route: 2.5 mg Instruction: 0.5 x 5 mg tablets Condition: Monday Dose/Route: 2.5 mg Instruction: 0.5 x 5 mg tablets Condition: Monday Dose/Route: 2.5 mg Instruction: 0.5 x 5 mg tablets Protocol Text: Adjustment Start Date: Monday08/12/22 INR Value: 4.2 INR Date: 08/12/22 Recheck Date: 08/19/22 Rx Instructions: To take as directed by [facility] omeprazole 20 mg capsule,delayed release(DR/EC) 20 mg PO BID Qty: 60 3RF Entresto 24-26 mg tablet 1 tab PO BID Qty: 180 2RF carvedilol 25 mg tablet 25 mg PO BID 90 Days Qty: 180 3RF digoxin 250 mcg (0.25 mg) tablet 250 mcg PO DAILY Qty: 90 3RF furosemide 20 mg tablet 20 mg PO 3XW Qty: 36 5RF atorvastatin 40 mg tablet 40 mg PO DAILY Qty: 30 6RF mineral oil [Fleet Mineral Oil] Enema 118 ml RI DAILY PRN (Reason: constipation) Qty: 6384 0RF Rx Instructions: discard any unused portion warfarin 5 mg tablet 5 mg PO DAILY Qty: 90 3RF Protocol: Dose Management Condition: Monday (Week One) Dose/Route: 5 mg Instruction: 1 x 5 mg tablet Condition: Monday Dose/Route: 2.5 mg Instruction: 0.5 x 5 mg tablets Condition: Monday Dose/Route: 2.5 mg Instruction: 0.5 x 5 mg tablets Condition: Monday Dose/Route: 2.5 mg Instruction: 0.5 x 5 mg tablets Condition: Dose/Route: 2.5 mg Instruction: 0.5 x 5 mg tablets Condition: Monday Dose/Route: 0 mg Instruction: 0 tablets Condition: Monday Dose/Route: 2.5 mg Instruction: 0.5 x 5 mg tablets Condition: Monday (Week Two) Dose/Route: 5 mg Instruction: 1 x 5 mg tablet Condition: Monday Dose/Route: 2.5 mg Instruction: 0.5 x 5 mg tablets Condition: Monday Dose/Route: 2.5 mg Instruction: 0.5 x 5 mg tablets Condition: Monday Dose/Route: 2.5 mg Instruction: 0.5 x 5 mg tablets Condition: Dose/Route: 2.5 mg Instruction: 0.5 x 5 mg tablets Condition: Monday Dose/Route: 2.5 mg Instruction: 0.5 x 5 mg tablets Condition: Monday Dose/Route: 2.5 mg Instruction: 0.5 x 5 mg tablets Protocol Text: Adjustment Start Date: Monday08/12/22 INR Value: 4.2 INR Date: 08/12/22 Recheck Date: 08/19/22 Rx Instructions: take as directed nitrofurantoin monohyd/m-cryst [Macrobid] 100 mg capsule 100 mg PO Q12H 7 Days Qty: 14 0RF Rx Instructions: must administer with a meal/food phenazopyridine [Pyridium] 200 mg tablet 200 mg PO TID Qty: 6 0RF quetiapine 25 mg tablet 25 mg PO BEDTIME gabapentin 300 mg capsule 300 mg PO DAILY docusate sodium 100 mg capsule 100 mg PO DAILY Qty: 30 3RF sennosides [Natural Senna Laxative] 8.6 mg tablet 8.6 mg PO BEDTIME PRN (Reason: constipation) Qty: 30 1RF simethicone 180 mg capsule 180 mg PO TID 30 Days Qty: 90 3RF Rx Instructions: after meals magnesium citrate Solution 150 ml PO DAILY PRN (Reason: constipation) Qty: 296 2RF multivitamin with folic acid [Tab-A-Parrish] 400 mcg tablet 1 tab PO DAILY (DME) pen needle, diabetic [Comfort EZ Pen [place]] 33 gauge x 5/32 needle See Rx Instructions .ROUTE QID Qty: 100 Rx Instructions: As directed albuterol sulfate [ProAir HFA] 90 mcg/actuation HFA aerosol inhaler 2 puff inhalation Q4-6H PRN (Reason: Cold Symptoms) alcohol swabs [Alcohol Prep Pads] Pads, Medicated topical DIRECTED (DME) FreeStyle Lite Strips Strip See Rx Instructions topical .MEDSUPPLY Qty: 10 Rx Instructions: As directed bupropion HCl 150 mg tablet extended release 24 hr 0 mg PO mirtazapine 15 mg tablet 15 mg PO BEDTIME quetiapine 200 mg tablet 200 mg PO BEDTIME Jardiance 10 mg tablet 10 mg PO DAILY bupropion HCl 300 mg tablet extended release 24 hr 300 mg PO DAILY Lannidhius Solostar U-100 Insulin 100 unit/mL (3 mL) insulin pen 45 unit subcut QPM 30 Days Qty: 13.5 6RF
[2023-03-28 20:58] VITALS: BP 117/67; PULSE 71
[2023-03-28 20:59] VITALS: BP 119/70; PULSE 67
[2023-03-28 21:00] VITALS: BP 109/57; PULSE 57
[2023-03-28 21:20] LABS: MANUAL DIFF FLAG NO
[2023-03-28 21:21] LABS: Basophils Percent Auto 0.3 % (0-2); Eosinophils Absolute Auto 0.2 X10*3/uL (0.0-0.4); Eosinophils Percent Auto 2.4 % (0-4); Hematocrit 44.1 % (42.0-52.0); Imm Gran Abs Auto 0.02 X10*3/uL (0.00-0.03); Imm Gran Pct Auto 0.3 % (0.0-0.4); Lymphocytes Absolute Auto 2.2 X10*3/uL (1.2-4.9); Lymphocytes Percent Auto 27.4 % (20-40); Mean Corpuscular Hemoglobin 29.4 pg (27.0-33.0); Mean Corpuscular Volume 86.5 fL (80.0-98.0); Mean Platelet Volume 10.7 fL (9.4-12.4); Monocytes Absolute Auto 0.6 X10*3/uL (0.1-1.2); Monocytes Percent Auto 7.7 % (2-11); Neutrophils Absolute Auto 4.9 x10*3/uL (2.0-8.3); Neutrophils Percent Auto 61.9 % (45-73); Platelet Count 156 X10*3/uL (160-400); Red Cell Distribution Width 13.1 % (11.0-16.0)
[2023-03-28 21:27] LABS: INTERNATIONAL NORM RATIO 1.8 (0.9-1.1); Prothrombin Time 22.5 SEC (11.1-13.3)
[2023-03-28 21:33] LABS: Amphetamine Screen Urine Not Detected (Not Detect); Barbiturates, Urine Not Detected (Not Detect); Benzodiazepines Screen Urine Not Detected (Not Detect); Cannabinoid Screen Urine Not Detected (Not Detect); Cocaine Screen Urine Not Detected (Not Detect); Fentanyl, urine Not Detected (Not Detect); Opiate Screen Urine Not Detected (Not Detect); Phencyclidine Screen Urine Not Detected (Not Detect)
[2023-03-28 21:36] LABS: Ethanol < 10 mg/dL
[2023-03-28 21:37] LABS: Alanine Aminotransferase 24 U/L (0-40); Albumin Level 4.5 g/dL (3.5-5.0); Alkaline Phosphatase 191 U/L (39-117); Anion Gap 14 (12-20); Aspartate Amino Transferase 21 U/L (5-37); Bilirubin Direct 0.2 mg/dL (0.0-0.5); Bilirubin Total 0.6 mg/dL (0.0-1.0); Blood Urea Nitrogen 18 mg/dL (9-16); Calcium 9.4 mg/dL (8.4-10.2); Carbon Dioxide 27 mmol/L (22-29); Chloride 104 mmol/L (96-108); Creatinine Clr Calc Pharmacy 78.5; Estimated Glomerular Filt Rate > 60; Glucose Random 151 mg/dL (60-115); Potassium 3.7 mmol/L (3.3-5.1); Sodium 141 mmol/L (135-145); Total Protein 8.1 g/dL (6.5-8.0)
== END 2023-03-28 23:22 | disposition home or self-care (01) ==
PROVIDERS: Emergency Provider Emergency Medicine
DX: R42 Dizziness and giddiness (principal); R94.31 Abnormal electrocardiogram [ECG] [EKG]; E11.9 Type 2 diabetes mellitus without complications; F17.210 Nicotine dependence, cigarettes, uncomplicated; R06.02 Shortness of breath; Z79.4 Long term (current) use of insulin; Z20.822 Contact with and (suspected) exposure to COVID-19; Z20.828 Contact with and (suspected) exposure to other viral communicable diseases; Z79.899 Other long term (current) drug therapy; Z86.718 Personal history of other venous thrombosis and embolism; Z71.6 Tobacco abuse counseling; Z79.01 Long term (current) use of anticoagulants
CPT/HCPCS: 0241U; 36415; 71045; 80048; 80076; 80307; 83735; 84484; 85025; 85610; 93005; 99284

== ENCOUNTER → 2023-03-28 20:03 | Outpatient (BNV) | payer OTHER, SELFPAY | PROVIDERS: Emergency Provider Emergency Medicine; Visit Provider Internal Medicine | DX: R94.31 Abnormal electrocardiogram [ECG] [EKG] (principal) | CPT/HCPCS: 93010 ==

== ENCOUNTER → 2023-04-04 23:59 | Outpatient (BNV) | payer OTHER, SELFPAY ==
--- NOTE | 2023-04-04 14:57 | A.OFFVIS_ITS ---
Intake Intake Visit Reasons: Remote ICD Check- [employer] Allergies No Known Allergies Allergy (Verified 03/28/23 15:18) [facility] Medical History ICD (implantable cardioverter-defibrillator) in place Type 2 diabetes mellitus with hyperglycemia, with long-term current use of insulin Type 2 diabetes mellitus with hypoglycemia without coma Hyperlipidemia LDL goal <100 Controlled diabetes mellitus without complication, with long-term current use of insulin Prosthetic and other implants, materials and accessory gastroenterology and urology devices associated with adverse incidents DVT (deep venous thrombosis) Cardiomyopathy Surgical History History of implantable cardioverter-defibrillator (ICD) insertion Family History Father No problems noted. Mother Diabetes mellitus CVD (cardiovascular disease) Cancer Uterine cancer Cervical cancer Maternal Grandfather Prostate cancer Social History Household Members: None Housing: Apartment Alcohol intake: current Alcohol intake frequency: does not drink Patient Tobacco Use Status: Current everyday Tobacco user Tobacco use type: Cigarette Cigarettes Per Day: 7 Advance Directives: No Advance Directives Information Provided: No service: No Current occupational status: unemployed Office Procedures Cardiac Device Check Cardiac Device Check Details: Remote ICD report generated 04/04/2023. ICD function is adequate. Multiple [place]ustained [place] [id number] Cardiac Interrogation, implant defibrillator w/interim Procedure code (CPT) selection complete Assessment & Plan Assessment & Plan (1) ICD (implantable cardioverter-defibrillator) in place: Comment: [employer] dual-chamber ICD in place, 2011 Code(s): Z95.810 - Presence of automatic (implantable) cardiac defibrillator Plan: See above Coding Level of Care Code Procedure Only Diagnoses ICD (implantable cardioverter-defibrillator) in place Z95.810 CPT Codes Cardiac Device Check - Cardiac Device 13: [id number] Cardiac Interrogation, implant defibrillator w/interim ([id number])
== END ==
PROVIDERS: Visit Provider Internal Medicine Cardiovascular Disease
DX: I42.9 Cardiomyopathy, unspecified (principal); Z95.810 Presence of automatic (implantable) cardiac defibrillator
CPT/HCPCS: 93295

== ENCOUNTER → 2023-07-04 23:59 | Outpatient (BNV) | payer OTHER, SELFPAY ==
--- NOTE | 2023-07-04 14:01 | MHC.OFFVIS ---
Intake Intake Visit Reasons: Remote ICD Check- [employer] Allergies No Known Allergies Allergy (Verified 03/28/23 15:18) [facility] Medical History ICD (implantable cardioverter-defibrillator) in place Type 2 diabetes mellitus with hyperglycemia, with long-term current use of insulin Type 2 diabetes mellitus with hypoglycemia without coma Hyperlipidemia LDL goal <100 Controlled diabetes mellitus without complication, with long-term current use of insulin Prosthetic and other implants, materials and accessory gastroenterology and urology devices associated with adverse incidents DVT (deep venous thrombosis) Cardiomyopathy Surgical History History of implantable cardioverter-defibrillator (ICD) insertion Family History Father No problems noted. Mother Diabetes mellitus CVD (cardiovascular disease) Cancer Uterine cancer Cervical cancer Maternal Grandfather Prostate cancer Social History Household Members: None Housing: Apartment Alcohol intake: current Alcohol intake frequency: does not drink Patient Tobacco Use Status: Current everyday Tobacco user Tobacco use type: Cigarette Cigarettes Per Day: 7 Advance Directives: No Advance Directives Information Provided: No service: No Current occupational status: unemployed Office Procedures Cardiac Device Check Cardiac Device Check Details: Remote ICD report generated 07/04/2023. ICD function is adequate. Multiple [place]ustained [place] [id number] Cardiac Interrogation, implant defibrillator w/interim Procedure code (CPT) selection complete Assessment & Plan Assessment & Plan (1) ICD (implantable cardioverter-defibrillator) in place: Comment: [employer] dual-chamber ICD in place, 2011 Code(s): Z95.810 - Presence of automatic (implantable) cardiac defibrillator Plan: See above Coding Level of Care Code Procedure Only Diagnoses ICD (implantable cardioverter-defibrillator) in place Z95.810 CPT Codes Cardiac Device Check - Cardiac Device 13: [id number] Cardiac Interrogation, implant defibrillator w/interim ([id number])
== END ==
PROVIDERS: Visit Provider Internal Medicine Cardiovascular Disease
DX: Z95.810 Presence of automatic (implantable) cardiac defibrillator (principal)
CPT/HCPCS: 93295

== ENCOUNTER 2023-08-21 13:58 | Outpatient (REF) | payer OTHER, SELFPAY ==
[2023-08-21 15:26] LABS: Hematocrit 46.8 % (42.0-52.0); Hemoglobin 15.8 g/dl (14.0-18.0); Mean Corpuscular HGB Conc 33.8 g/dl (31.0-36.0); Mean Corpuscular Hemoglobin 29.3 pg (27.0-33.0); Mean Corpuscular Volume 86.8 fL (80.0-98.0); Mean Platelet Volume 10.8 fL (9.4-12.4); Platelet Count 151 X10*3/uL (160-400); Red Blood Count 5.39 X10*6/uL (4.60-5.80); White Blood Count 6.5 X10*3/uL (4.8-10.8)
[2023-08-21 16:16] LABS: Anion Gap 14 (12-20); Blood Urea Nitrogen 11 mg/dL (9-16); Calcium 9.6 mg/dL (8.4-10.2); Carbon Dioxide 27 mmol/L (22-29); Chloride 104 mmol/L (96-108); Estimated Glomerular Filt Rate > 60; Glucose Random 128 mg/dL (60-115); Potassium 4.1 mmol/L (3.3-5.1); Sodium 141 mmol/L (135-145)
[2023-08-21 16:56] LABS: Digoxin 1.1 ng/mL (0.8-2.0)
== END 2023-08-21 13:59 | disposition home or self-care (01) ==
LOC: HO.LAB 13:58
PROVIDERS: Nurse Practitioner Family; PCP Nurse Practitioner Family; Visit Provider Internal Medicine Cardiovascular Disease
DX: I50.20 Unspecified systolic (congestive) heart failure (principal); I48.20 Chronic atrial fibrillation, unspecified; Z79.899 Other long term (current) drug therapy
CPT/HCPCS: 36415; 80048; 80162; 85027; 99212

== ENCOUNTER 2023-08-21 13:58 | Outpatient (AMB) | payer OTHER, SELFPAY ==
--- NOTE | 2023-08-21 14:06 | A.OFFVIS_ITS ---
Vital Signs 08/21/23 14:07 Height 5 ft 4 in Weight 165 lb 5.547 oz BMI 28.4 BP 116/70 Blood Pressure Location Lt brachial Position Sitting Pulse 80 Intake Visit Reasons: 6 mth w/ [facility] Intake Note: 6 month follow-up [facility] feeling good Tongue Stitcher Required: Yes Tongue Stitcher Name: Delaney garzon Allergies No Known Allergies Allergy (Verified 03/28/23 15:18) Medication List - Last Reconciled 08/21/23 by Arturo Gonzalez MD albuterol sulfate 90 mcg/actuation (ProAir HFA) 2 puffs inhalation Q4-6H PRN alcohol swabs (Alcohol Prep Pads) pad topical DIRECTED atorvastatin 40 mg PO DAILY blood sugar diagnostic (FreeStyle Lite Strips) As directed bupropion HCl XL 300 mg PO DAILY bupropion HCl XL 150 mg PO DAILY carvedilol 25 mg PO BID 90 days digoxin 250 mcg PO DAILY docusate sodium 100 mg PO DAILY dulaglutide (Trulicity) 4.5 mg (0.5 mL) subcut QWEEK empagliflozin (Jardiance) 10 mg PO DAILY furosemide 20 mg PO 3XW gabapentin 300 mg PO DAILY insulin glargine (Lantus Solostar U-100 Insulin) 45 units (0.45 mL) subcut QPM 30 days magnesium citrate 150 mL PO DAILY PRN mineral oil (Fleet Mineral Oil enema) 118 mL OR DAILY PRN mirtazapine 15 mg PO BEDTIME multivitamin with folic acid 400 mcg (Tab-A-Parrish) 1 tab PO DAILY nitrofurantoin monohyd/m-cryst 100 mg (Macrobid) 100 mg PO Q12H 7 days omeprazole 20 mg PO BID pen needle, diabetic (Comfort EZ Pen [place]) As directed phenazopyridine (Pyridium) 200 mg PO TID 6 doses polyethylene glycol 3350 (Miralax) 17 grams PO BID quetiapine 25 mg PO BEDTIME quetiapine 200 mg PO BEDTIME sacubitril-valsartan 24-26 mg (Entresto) 1 tab PO BID sennosides (Natural Senna Laxative) 8.6 mg PO BEDTIME PRN simethicone 180 mg PO TID 30 days warfarin 5 mg See Protocol PO DAILY warfarin 5 mg See Protocol PO DAILY HPI Comments Details: Dereck comes for follow-up of his heart failure as well as ICD. He has been doing well. History obtained with help of shell sieve operator in the room. He denies any worsening symptoms. Denies any symptoms of orthopnea, PND, leg edema. No significant weight gain. No chest pain. No prolonged palpitation, irregular heartbeat, ICD. Occasionally lightheaded with gets up suddenly. No syncopal episodes. Takes all his medications regularly. [facility] Medical History ICD (implantable cardioverter-defibrillator) in place Type 2 diabetes mellitus with hyperglycemia, with long-term current use of insulin Type 2 diabetes mellitus with hypoglycemia without coma Hyperlipidemia LDL goal <100 Controlled diabetes mellitus without complication, with long-term current use of insulin Prosthetic and other implants, materials and accessory gastroenterology and urology devices associated with adverse incidents DVT (deep venous thrombosis) Cardiomyopathy Surgical History History of implantable cardioverter-defibrillator (ICD) insertion Family History Father No problems noted. Mother Diabetes mellitus CVD (cardiovascular disease) Cancer Uterine cancer Cervical cancer Maternal Grandfather Prostate cancer Social History Household Members: None Housing: Apartment Alcohol intake: current Alcohol intake frequency: does not drink Patient Tobacco Use Status: Current everyday Tobacco user Tobacco use type: Cigarette Cigarettes Per Day: 7 service: No Current occupational status: unemployed Review of Systems Const Denies chills, Denies fatigue, Denies fever(s), Denies frequent falls, Denies weakness, Denies weight gain and Denies weight loss ENT Denies dizziness Card Denies chest pain, Denies leg edema, Denies lightheadedness, Denies palpitations, Denies dyspnea, Denies dyspnea on exertion, Denies orthopnea and Denies other (loss of consciousness) Resp Denies cough, Denies dyspnea and Denies dyspnea on exertion GI Denies hematochezia and Denies change in stool character Musc Denies abnormal gait, Denies muscle weakness, Denies numbness, Denies radiating pain into limb and Denies tingling Neuro Denies abnormal gait, Denies dizziness, Denies frequent falls, Denies numbness, Denies tingling and Denies weakness Endo Denies fatigue and Denies palpitations Physical Exam Vital Signs: Last Vital Signs Pulse 80 08/21/23 14:07 BP 116/70 08/21/23 14:07 BMI result Body Mass Index 28.4 Const General: cooperative, healthy appearing, comfortable and no acute distress Orientation/consciousness: patient oriented x3 Neck Neck: Yes normal visual inspection Resp Effort & Inspection: normal respiratory effort Auscultation: clear to auscultation bilaterally, no crackles, no rales, no rhonchi and no wheezes Cardio Jugular venous distension: no JVD Rate: regular rate Rhythm: regular rhythm Heart sounds: S1 normal heart sound present, S2 normal heart sound present, no murmurs and no rubs Neuro General: patient oriented x3 Extrem General: Yes normal to inspection Psych Appearance: grossly normal Mental Status: mental status grossly normal Speech and movement: Normal speech and movement present Office Procedures Cardiac Device Check Cardiac Device Check Details: Dual-chamber [employer] ICD in place. Programmed in DDDR at 60 beats per minute. Atrial pacing 19% of the time. Battery life is adequate at 2 years. Atrial and ventricular pacing thresholds adequate. Atrial ventricular pacing lead impedance is stable. Shock lead impedance is stable. Atrial ventricular sensing is excellent. 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 Clinically euvolemic and well compensated. Follow-up echocardiogram near future. Continue aggressive medical therapy along with current diuretic regimen. Daily weight monitoring avoidance of salt loading was discussed. Clinically appears to be doing well. Continue current neurohormonal modulation with Entresto, carvedilol, Jardiance therapy. Daily weight monitoring avoidance salt loading was discussed. Continue current digoxin therapy. Advise digoxin assay. (2) Nonsustained ventricular tachycardia: Code(s): I47.2 - Ventricular tachycardia Category: Medical Plan: Nonsustained ventricular tachycardia in the setting of severe cardiomyopathy. Clinically doing well with no ICD discharge. No need for antiarrhythmic drug therapy. Continue monitor remotely. He is currently on warfarin therapy related to DVT. Continue the same. Target INR between 2 and 3. Will follow up in the clinic in 6 months time with ICD check with EKG. Thank you for allowing me to partake in his care Orders: Orders Complete Blood Count no Diff Today I50.20 - Unspecified systolic (congestive) heart failure Digoxin Today I50.20 - Unspecified systolic (congestive) heart failure CA echo transthoracic complete Today I50.20 - Unspecified systolic (congestive) heart failure Basic Metabolic Panel Today I50.20 - Unspecified systolic (congestive) heart failure B Type Natriuretic Peptide Today I50.20 - Unspecified systolic (congestive) heart failure Coding Level of Care Code Est Pt Level 4 (56199) Diagnoses Heart failure with reduced ejection fraction I50.20 Nonsustained ventricular tachycardia I47.2 CPT Codes Cardiac Device Check - Cardiac Device 5: [id number] Cardiac Device Check, dual lead implantable defibrillator ([id number])
[2023-08-21 14:07] VITALS: BP 116/70; PULSE 80; BMI 28.4
== END 2023-08-21 14:31 | disposition home or self-care (01) ==
PROVIDERS: PCP Nurse Practitioner Family; Visit Provider Internal Medicine Cardiovascular Disease
DX: I50.20 Unspecified systolic (congestive) heart failure (principal); I47.20 Ventricular tachycardia, unspecified
CPT/HCPCS: 93283; 99214

== ENCOUNTER → 2023-09-15 12:53 | Outpatient (REF) | payer OTHER, SELFPAY ==
--- NOTE | 2023-09-15 12:57 | CA_ITS ---
Transthoracic Echocardiogram Patient (Last, First, Middle): Dereck Bynum A Gender: Male Date of : 1970 Age: 53 Procedure Date: 09/15/2023 Procedure Type: Transthoracic Echocardiogram Location: OP Height: 162. cm Weight: 76.8 kg BSA: 1.82 m2 Heart Rate: 73 bpm BP: 105 / 70 mmHg Hardware Developer: ANNEL Referring MD: Arturo Gonzalez MD Symptoms: I50.20 - Unspecified systolic (congestive) heart failure Study Quality: Adequate w/Contrast ECG Rhythm: Sinus Conclusions: - The left ventricular systolic function is moderate to severely decreased. The visually estimated ejection fraction is between 30-35%. - Prominent trabeculation at the apex, possible non-compaction. - No obvious valvular pathology seen on this study. Findings Procedure Information Contrast agent, definity, is being given per protocol without apparent complications. Left Ventricle Mildly increased left ventricular cavity size. There is normal left ventricular wall thickness. The left ventricular systolic function is moderate to severely decreased. The visually estimated ejection fraction is between 30-35%. Prominent trabeculation at the apex, possible non compaction. Right Ventricle Normal right ventricular cavity size. There is mildly decreased right ventricular systolic function. There is an ICD wire seen in the right ventricle. Atria Both atria are normal in size. Aortic Valve There is a normal trileaflet aortic valve. There is mild calcification of the aortic valve. There is no aortic valve stenosis. There is mild aortic valve regurgitation. Mitral Valve The mitral valve appears normal. There is trace mitral valve regurgitation. There is no mitral valve stenosis. Pulmonic Valve The pulmonic valve is likely normal. Tricuspid Valve There is mild tricuspid valve regurgitation. There is no evidence of pulmonary hypertension. Great Vessels The asc aorta is normal in size. Venous The inferior vena cava is normal in size and collapses greater than 50% with inspiration. Pericardium/Pleural There is no evidence of pericardial effusion. Prior Study Comparison No significant change compared to prior study dated: 07/27/2022. Recommendations, Care & Conclusions No obvious valvular pathology seen on this study. Measurements 2D Linear Measurements IVSd: 0.76 0.6-0.9/0.6-1.0 cm LVIDd: 5.81 3.9-5.3/4.2-5.9 cm LVIDd Index: 3.19 2.4-3.2/2.2-3.1 cm/m2 LVIDs: 4.80 2.0-3.6 cm LVPWd: 0.78 0.7-1.1 cm LA Diam: 3.70 2.7-3.8/3.0-4.0 cm LAIDs Index: 2.03 1.5-2.3 cm/m2 LV Mass: 209.99 67-162/88-224 g LV Mass Index: 115.38 43-95/49-115 g/m2 LVOT Diam: 2.70 3.0+(-)1.3 cm 2D Systolic Function EF 4C: 39.70 >55% EF 2C: 33.10 >55% EF BiP: 36.20 >55% Mitral Valve MV Pk E: 0.56 MV PK A: 0.66 MV Decel Time: 312.00 E/A: 0.90 E'Lateral: 8.81 E'Medial: 5.11 E/E' Med: 11.00 E/E' Lat: 6.40 PHT: 91.00 MVA PHT: 2.42 Decel Frontier: 1.80 Aortic Valve AoV Pk Mian: 1.49 AoV Mn Mian: 1.12 AoV VTI: 0.30 AoV Pk Grad: 9.00 Aov Mn Grad: 6.00 MELANIA Cont.VTI: 2.39 AI Pk Mian: 4.31 AI VTI: 2.71 AI Frontier: 1.96 AI Alias Mian: 0.39 AI RV - PISA: 24.00 ERO - PISA: 9.00 LVOT LVOT Pk Mian: 0.59 LVOT Mn Mian: 0.43 LVOT VTI: 0.13 LVOT Pk Grad: 1.00 LVOT Mn Grad: 1.00 LVOT Diam: 2.70 LVOT Area: 5.73 Diastolic Function MV Pk E: 0.56 MV Pk A: 0.66 E/A: 0.90 E'Medial: 5.11 E/E' Med: 11.00 E' Laterial: 8.81 E/E' Lat: 6.40 Right Ventricle TAPSE (mm): 13.50 TVS' Mian: 8.81 Tricuspid Valve TR Pk Mian: 2.25 TR Pk Grad: 20.00 Great Vessels Aorta Sinus of Valsalva: 3.50 2.0-3.5 cm Ao Asc: 3.50 2.1-3.4 cm Pulmonary Valve PV Pk Mian: 0.71 Peak PV Grad: 2.00 Updated in Other Vendor System with Status of Final Evelio Cottrell MD electronically signed on 09/16/2023 2:25:33 PM with status of Final
[2023-09-15 14:54] LABS: Anion Gap 13 (12-20); Blood Urea Nitrogen 11 mg/dL (9-16); Calcium 9.5 mg/dL (8.4-10.2); Carbon Dioxide 28 mmol/L (22-29); Chloride 104 mmol/L (96-108); Estimated Glomerular Filt Rate > 60; Glucose Random 135 mg/dL (60-115); Potassium 3.8 mmol/L (3.3-5.1); Sodium 141 mmol/L (135-145)
[2023-09-15 14:55] LABS: Digoxin 1.1 ng/mL (0.8-2.0)
[2023-09-15 14:57] LABS: B Type Natriuretic Peptide < 10 pg/mL (<100)
== END ==
LOC: HO.CARD 12:53
PROVIDERS: Nurse Practitioner Family; PCP Nurse Practitioner Family; Visit Provider Internal Medicine Cardiovascular Disease
DX: I50.20 Unspecified systolic (congestive) heart failure (principal); Z79.899 Other long term (current) drug therapy
CPT/HCPCS: 36415; 80048; 80162; 83880; 93306; Q9957

== ENCOUNTER → 2023-09-15 12:57 | Outpatient (BNV) | payer OTHER, SELFPAY | PROVIDERS: PCP Nurse Practitioner Family; Visit Provider Internal Medicine | DX: I35.1 Nonrheumatic aortic (valve) insufficiency (principal); I35.8 Other nonrheumatic aortic valve disorders; I36.1 Nonrheumatic tricuspid (valve) insufficiency | CPT/HCPCS: 93306 ==

== ENCOUNTER → 2023-10-03 23:59 | Outpatient (BNV) | payer OTHER, SELFPAY ==
--- NOTE | 2023-10-09 15:00 | MHC.OFFVIS ---
Intake Visit Reasons: Remote ICD Check- [employer] Allergies No Known Allergies Allergy (Verified 03/28/23 15:18) [facility] Medical History ICD (implantable cardioverter-defibrillator) in place Type 2 diabetes mellitus with hyperglycemia, with long-term current use of insulin Type 2 diabetes mellitus with hypoglycemia without coma Hyperlipidemia LDL goal <100 Controlled diabetes mellitus without complication, with long-term current use of insulin Prosthetic and other implants, materials and accessory gastroenterology and urology devices associated with adverse incidents DVT (deep venous thrombosis) Cardiomyopathy Surgical History History of implantable cardioverter-defibrillator (ICD) insertion Family History Father No problems noted. Mother Diabetes mellitus CVD (cardiovascular disease) Cancer Uterine cancer Cervical cancer Maternal Grandfather Prostate cancer Social History Household Members: None Housing: Apartment Alcohol intake: current Alcohol intake frequency: does not drink Patient Tobacco Use Status: Current everyday Tobacco user Tobacco use type: Cigarette Cigarettes Per Day: 7 service: No Current occupational status: unemployed Office Procedures Cardiac Device Check Cardiac Device Check Details: Remote ICD report generated 10/03/2023. ICD function is adequate. [place] [id number] Cardiac Interrogation, implant defibrillator w/interim Procedure code (CPT) selection complete Assessment & Plan Assessment & Plan (1) ICD (implantable cardioverter-defibrillator) in place: Comment: [employer] dual-chamber ICD in place, 2011 Code(s): Z95.810 - Presence of automatic (implantable) cardiac defibrillator Category: Medical Plan: See above Coding Level of Care Code Procedure Only Diagnoses ICD (implantable cardioverter-defibrillator) in place Z95.810 CPT Codes Cardiac Device Check - Cardiac Device 13: [id number] Cardiac Interrogation, implant defibrillator w/interim ([id number])
== END ==
PROVIDERS: PCP Nurse Practitioner Family; Visit Provider Internal Medicine Cardiovascular Disease
DX: R00.0 Tachycardia, unspecified (principal); Z95.810 Presence of automatic (implantable) cardiac defibrillator
CPT/HCPCS: 93295

== ENCOUNTER → 2024-01-02 23:59 | Outpatient (BNV) | payer OTHER, SELFPAY ==
--- NOTE | 2024-01-03 15:42 | MHC.OFFVIS ---
Intake Visit Reasons: Remote ICD check- [employer] Allergies No Known Allergies Allergy (Verified 03/28/23 15:18) [facility] Medical History ICD (implantable cardioverter-defibrillator) in place Type 2 diabetes mellitus with hyperglycemia, with long-term current use of insulin Type 2 diabetes mellitus with hypoglycemia without coma Hyperlipidemia LDL goal <100 Controlled diabetes mellitus without complication, with long-term current use of insulin Prosthetic and other implants, materials and accessory gastroenterology and urology devices associated with adverse incidents DVT (deep venous thrombosis) Cardiomyopathy Surgical History History of implantable cardioverter-defibrillator (ICD) insertion Family History Father No problems noted. Mother Diabetes mellitus CVD (cardiovascular disease) Cancer Uterine cancer Cervical cancer Maternal Grandfather Prostate cancer Social History Household Members: None Housing: Apartment Alcohol intake: current Alcohol intake frequency: does not drink Patient Tobacco Use Status: Current everyday Tobacco user Tobacco use type: Cigarette Cigarettes Per Day: 7 service: No Current occupational status: unemployed Office Procedures Cardiac Device Check Cardiac Device Check Details: Remote ICD report generated 01/02/2024. ICD function is adequate [id number] Cardiac Interrogation, implant defibrillator w/interim Procedure code (CPT) selection complete Assessment & Plan Assessment & Plan (1) ICD (implantable cardioverter-defibrillator) in place: Comment: [employer] dual-chamber ICD in place, 2011 Code(s): Z95.810 - Presence of automatic (implantable) cardiac defibrillator Category: Medical Plan: See above Coding Level of Care Code Procedure Only Diagnoses ICD (implantable cardioverter-defibrillator) in place Z95.810 CPT Codes Cardiac Device Check - Cardiac Device 13: [id number] Cardiac Interrogation, implant defibrillator w/interim ([id number])
== END ==
PROVIDERS: PCP Nurse Practitioner Family; Visit Provider Internal Medicine Cardiovascular Disease
DX: Z45.02 Encounter for adjustment and management of automatic implantable cardiac defibrillator (principal)
CPT/HCPCS: 93295

== ENCOUNTER 2024-02-19 12:55 | Outpatient (AMB) | payer OTHER, SELFPAY ==
--- NOTE | 2024-02-19 13:04 | A.OFFVIS_ITS ---
Vital Signs 02/19/24 13:07 Height 5 ft 4 in Weight 171 lb 15.369 oz BMI 29.5 BP 116/78 Blood Pressure Location Lt brachial Position Sitting Pulse 84 Intake Visit Reasons: 6 mth w/ [facility] Intake Note: 6 month folow-up with ekg and [employer] feeling goo d Controls Technician Required: Yes Controls Technician Services: Controls Technician Present Controls Technician [place] [facility] [place]ergies No Known Allergies Allergy (Verified 03/28/23 15:18) HPI Comments Details: Dereck comes for follow-up. History obtained with help of accounting auditor in the room. Patient has been doing very well from cardiac perspective. Taking all his medications. Denies any worsening shortness of breath, orthopnea, PND. Can walk for an hour without any limitations. Occasional orthostatic lightheadedness but this is not bothersome. No syncopal episodes. No prolonged palpitations, ICD discharge. Denies any chest pain. Takes all his medications regularly. [facility] Medical History ICD (implantable cardioverter-defibrillator) in place Type 2 diabetes mellitus with hyperglycemia, with long-term current use of insulin Type 2 diabetes mellitus with hypoglycemia without coma Hyperlipidemia LDL goal <100 Controlled diabetes mellitus without complication, with long-term current use of insulin Prosthetic and other implants, materials and accessory gastroenterology and urology devices associated with adverse incidents DVT (deep venous thrombosis) Cardiomyopathy Surgical History History of implantable cardioverter-defibrillator (ICD) insertion Family History Father No problems noted. Mother Diabetes mellitus CVD (cardiovascular disease) Cancer Uterine cancer Cervical cancer Maternal Grandfather Prostate cancer Social History Household Members: None Housing: Apartment Alcohol intake: current Alcohol intake frequency: does not drink Patient Tobacco Use Status: Current everyday Tobacco user Tobacco use type: Cigarette Cigarettes Per Day: 7 service: No Current occupational status: unemployed Review of Systems Const Denies chills, Denies fatigue, Denies fever(s), Denies frequent falls, Denies weakness, Denies weight gain and Denies weight loss ENT Denies dizziness Card Denies chest pain, Denies leg edema, Denies lightheadedness, Denies palpitations, Denies dyspnea, Denies dyspnea on exertion, Denies orthopnea and Denies other (loss of consciousness) Resp Denies cough, Denies dyspnea and Denies dyspnea on exertion GI Denies hematochezia and Denies change in stool character Musc Denies abnormal gait, Denies muscle weakness, Denies numbness, Denies radiating pain into limb and Denies tingling Neuro Denies abnormal gait, Denies dizziness, Denies frequent falls, Denies numbness, Denies tingling and Denies weakness Endo Denies fatigue and Denies palpitations Physical Exam Vital Signs: Last Vital Signs Pulse 84 02/19/24 13:07 BP 116/78 02/19/24 13:07 BMI result Body Mass Index 29.5 Const General: cooperative, healthy appearing, comfortable and no acute distress Orientation/consciousness: patient oriented x3 Neck Neck: Yes normal visual inspection Resp Effort & Inspection: normal respiratory effort Auscultation: clear to auscultation bilaterally, no crackles, no rales, no rhonchi and no wheezes Cardio Jugular venous distension: no JVD Rate: regular rate Rhythm: regular rhythm Heart sounds: S1 normal heart sound present, S2 normal heart sound present, no murmurs and no rubs Neuro General: patient oriented x3 Extrem General: Yes normal to inspection Psych Appearance: grossly normal Mental Status: mental status grossly normal Speech and movement: Normal speech and movement present Office Procedures Cardiac Device Check Cardiac Device Check Details: Dual-chamber [employer] ICD in place. Programmed in DDDR at 60 beats per minute. Few episodes of nonsustained ventricular tachycardia noted. Atrial ventricular sensing is adequate. Pacing and shock lead impedance is stable. Battery life is at 1 and half years. Atrial ventricular pacing thresholds adequate [id number] Cardiac Device Check, dual lead implantable defibrillator Procedure code (CPT) selection complete EKG Details: EKG shows normal sinus rhythm with LVH with repolarization abnormality [id number], Complete Assessment & Plan Assessment & Plan (1) Heart failure with reduced ejection fraction: Code(s): I50.20 - Unspecified systolic (congestive) heart failure Category: Medical Plan: Heart failure with reduced ejection fraction with nonischemic cardiomyopathy moderate to severe LV systolic dysfunction. Clinically euvolemic and well compensated current diuretic dose. Continue current neurohormonal modulation with Entresto, carvedilol, Jardiance. Continue digoxin therapy. He is currently feeling well with no worsening heart failure syndrome. Advised to continue maintain activity level as tolerated. Advised to call me with any new symptoms. Daily weight monitoring avoidance salt loading was discussed. Continue low-dose diuretic therapy. (2) ICD (implantable cardioverter-defibrillator) in place: Comment: [employer] dual-chamber ICD in place, 2011 Code(s): Z95.810 - Presence of automatic (implantable) cardiac defibrillator Category: Medical Plan: Dual-chamber [employer] ICD in place. Working well. Reprogrammed for adequate functioning. Nonsustained VT noted but without any therapies. Will continue monitor remotely for heart failure as well as device function. (3) Nonsustained ventricular tachycardia: Code(s): I47.2 - Ventricular tachycardia Category: Medical Plan: Nonsustained ventricular tachycardia in setting of nonischemic cardiomyopathy. No ICD therapies ever been delivered. Will continue monitor by pacer telemetry. Continue carvedilol therapy. Avoidance of stimulants was discussed. Follow up in the clinic 6 months time, sooner p.r.n.. Thank you for allowing me to partake in his care Coding Level of Care Code Est Pt Level 4 (43123) Complex EM visit Add On G2211 Diagnoses Heart failure with reduced ejection fraction I50.20 ICD (implantable cardioverter-defibrillator) in place Z95.810 Nonsustained ventricular tachycardia I47.2 CPT Codes Cardiac Device Check - Cardiac Device 5: 39972-[id number] Cardiac Device Check, dual lead implantable defibrillator ([id number]) EKG - CPT: 91588-[id number], Complete ([id number])
[2024-02-19 13:07] VITALS: BP 116/78; PULSE 84; BMI 29.5
== END 2024-02-19 13:31 | disposition home or self-care (01) ==
PROVIDERS: PCP Nurse Practitioner Family; Visit Provider Internal Medicine Cardiovascular Disease
DX: I50.20 Unspecified systolic (congestive) heart failure (principal); Z95.810 Presence of automatic (implantable) cardiac defibrillator; I47.20 Ventricular tachycardia, unspecified
CPT/HCPCS: 93010; 93283; 99214; G2211

== ENCOUNTER → 2024-02-19 12:55 | Outpatient (BNVA) | payer OTHER, SELFPAY | PROVIDERS: PCP Nurse Practitioner Family; Visit Provider Internal Medicine Cardiovascular Disease | DX: I50.20 Unspecified systolic (congestive) heart failure (principal); I47.20 Ventricular tachycardia, unspecified; Z95.810 Presence of automatic (implantable) cardiac defibrillator | CPT/HCPCS: 93005; 99212 ==

== ENCOUNTER → 2024-07-02 23:59 | Outpatient (BNV) | payer OTHER, SELFPAY ==
--- NOTE | 2024-07-02 11:14 | A.OFFVIS_ITS ---
Intake Visit Reasons: Remote ICD check- [employer] Allergies No Known Allergies Allergy (Verified 03/28/23 15:18) [facility] History ICD (implantable cardioverter-defibrillator) in place Type 2 diabetes mellitus with hyperglycemia, with long-term current use of insulin Type 2 diabetes mellitus with hypoglycemia without coma Hyperlipidemia LDL goal <100 Controlled diabetes mellitus without complication, with long-term current use of insulin Prosthetic and other implants, materials and accessory gastroenterology and urology devices associated with adverse incidents DVT (deep venous thrombosis) Cardiomyopathy Surgical History History of implantable cardioverter-defibrillator (ICD) insertion Family History Father No problems noted. Mother Diabetes mellitus CVD (cardiovascular disease) Cancer Uterine cancer Cervical cancer Maternal Grandfather Prostate cancer Social History Household Members: None Housing: Apartment Alcohol intake: current Alcohol intake frequency: does not drink Patient Tobacco Use Status: Current everyday Tobacco user Tobacco use type: Cigarette Cigarettes Per Day: 7 service: No Current occupational status: unemployed Office Procedures Cardiac Device Check Cardiac Device Check Details: Remote ICD report generated 07/02/2024. ICD function is adequate [id number] Cardiac Interrogation, implant defibrillator w/interim Procedure code (CPT) selection complete Assessment & Plan Assessment & Plan (1) ICD (implantable cardioverter-defibrillator) in place: Comment: [employer] dual-chamber ICD in place, 2011 Code(s): Z95.810 - Presence of automatic (implantable) cardiac defibrillator Category: Medical Plan: See above Coding Level of Care Code Procedure Only Diagnoses ICD (implantable cardioverter-defibrillator) in place Z95.810 CPT Codes Cardiac Device Check - Cardiac Device 13: [id number] Cardiac Interrogation, implant defibrillator w/interim ([id number])
== END ==
PROVIDERS: PCP Nurse Practitioner Family; Visit Provider Internal Medicine Cardiovascular Disease
DX: Z45.02 Encounter for adjustment and management of automatic implantable cardiac defibrillator (principal)
CPT/HCPCS: 93295

== ENCOUNTER 2024-08-19 12:55 | Outpatient (REF) | payer OTHER, SELFPAY ==
--- OUTSIDE RECORDS SUMMARY | 2024-08-19 14:13 | XMS_ITS | Clinical Summary ---
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 For additional information please refer to http://education.Ophis Vape.Chef Dovunque/faq/YIT609 (This link is being provided for informational/ [...] a test for HCV RNA (test code 92202) is suggested. ?? For additional information please refer to http://Yueqing Easythink Media.Cardiovascular Systems/faq/DWD95g5 (This link is being provided for informational/ educational purposes only.) ?? 06/16/2021 2:12 PM EDT Anitha Nicole MD HISTORICAL/NON ORDERABLE LAB S Final Result [facility] [address] * (ABNORMAL) LIPID PANEL, STANDARD (10/01/2019 [...] ?? Parish DIAZ et al. GOVIND. 2013;310(19): 5327-4682 ?? (http://Yueqing Easythink Media.[place]/faq/GZB878) HDL Cholesterol 25(L) > OR = 40 [...] ?? Parish SS et al. GOVIND. 2013;310(19): 9812-0059 ?? (http://LRN/faq/QYE369) Chol/HDLC Ratio 4.8 <5.0 (calc) [facility] Chol/HDLC Ratio 4.8 <5.0 (calc) [...] 2015;9:129-169. ?? LDL Cholesterol 58 mg/dL (calc) [facility] Comment: Reference range: <100 ?? [...] ?? Parish SS et al. GOVIND. 2013;310(19): 7508-6163 ?? (http://LRN/faq/CGM320) HDL Cholesterol 25(L) > OR = 40 [...] MD LAB BLOOD ORDERABLES Final R esult [facility] [address] from Last 3 Months or Most Recently Relevant to Health Maintenance Insurance [place] [address] [address] [place] [address] [id number] [place] [id number]
[2024-08-19 15:07] LABS: Anion Gap 12 (12-20); Blood Urea Nitrogen 17 mg/dL (9-16); Calcium 9.3 mg/dL (8.4-10.2); Carbon Dioxide 29 mmol/L (22-29); Chloride 105 mmol/L (96-108); Estimated Glomerular Filt Rate > 60; Glucose Random 128 mg/dL (60-115); Potassium 3.8 mmol/L (3.3-5.1); Sodium 142 mmol/L (135-145)
== END 2024-08-19 12:56 | disposition home or self-care (01) ==
LOC: HO.LAB 12:55
PROVIDERS: PCP Nurse Practitioner Family; Visit Provider Internal Medicine Cardiovascular Disease
DX: Z95.810 Presence of automatic (implantable) cardiac defibrillator (principal); I50.20 Unspecified systolic (congestive) heart failure; Z79.899 Other long term (current) drug therapy
CPT/HCPCS: 36415; 80048; 80162; 99212

== ENCOUNTER 2024-08-19 12:55 | Outpatient (AMB) | payer OTHER, SELFPAY ==
--- OUTSIDE RECORDS SUMMARY | 2024-08-19 13:05 | XMS_ITS | Clinical Summary ---
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 Role Phone Unavailable Primary Care Provider Unavailabl e Immunizations Immunization Administration Dates Next Due Hep B, adult 01/21/2019,12/12/2017,11/14/2017 Influenza Injectable Quadriv alant Preservative Free IIV4 MDCK 02/10/2021 Influenza injectable quadriv alent IIV4 with preservative 01/21/2019 Influenza injectable quadriv alent preservative free 01/03/2020,04/19/2018 Influenza, IIV3, injectable 01/31/2022, 1 Influenza, seasonal, injecta ble, preservative free 03/30/2016 Moderna Covid-19 Vaccine 6+ Bivalent 06/21/2022 Pneumococcal Polysaccharide PPSV23 11/14/2017, Tdap 04/19/2018 Social History Tobacco Use Types Packs/Day Years Used Date Smoking Tobacco: Never Assessed Sex and Gender Information Value Date Recorded Sex Assigned at Male 01/31/2022 10:21 AM EDT Legal Sex Male 10:21 AM EDT Gender Identity Male 01/31/2022 10:21 AM EDT Sexual Orientation Choose not to disclose 2021 10:21 AM EDT Last Filed Vital Signs Vital Sign Reading Time Taken Comments Blood Pressure 112/70 10/01/2020 12:07 AM EDT Pulse 76 10/01/2020 12:07 AM EDT Temperature - - Respiratory Rate - - Oxygen Saturation - - Inhaled Oxygen Concentration - - Weight 79.4 kg (175 lb) 10/01/2020 12:07 AM EDT Height 162.6 cm (5' 4 ) 10/01/2020 12:07 AM EDT Body Mass Index 30.04 10/01/2020 12:07 AM EDT Plan of Treatment Health Maintenance Due Date Last Done Comments CT Colonography 1971 Colonoscopy 1971 Colorectal Cancer Screening 1971 Depression Screening 1971 FIT DNA/Cologuard 1971 FIT 1971 FOBT 1971 SDOH Screening 1971 Sigmoidoscopy 1971 Alcohol/Substance Use Screening 1983 Tobacco Screening 1983 Pneumococcal Vaccine: 50+ Years (2 of 2 - PCV) 11/14/2018 11/14/2017, 11/26/2013, 06/06/2013, Additional history exists Zoster Vaccines (1 of 2) 07/07/2021 COVID-19 Vaccine ( - season) 2023 06/21/2022, 05/10/2021, 06/23/2020, Additional history exists Influenza Vaccine (#1) 2023 , 01/31/2022, 02/10/2021, Additional history exists Lipid Panel 09/30/2024 10/01/2019 DTaP/Tdap/Td Vaccines (3 - Td or Tdap) 04/19/2028 04/19/2018, 02/14/2011 RSV Patients and Patients Aged 60 years or older (1 - 1-dose 75+ series) 07/07/2046 Hepatitis B Vaccines Completed 01/21/2019, 12/12/2017, 11/14/2017 Hepatitis C Screening Completed 06/16/2021 HIV Screening Completed 01/03/2022, 06/16/2021 HIB Vaccines Aged Out No longer eligi ble based on patient's age to complete this topic HPV Vaccines Aged Out No longer eligi ble based on patient's age to complete this topic Hepatitis A Vaccines Aged Out No long er eligible based on patient's age to complete this topic IPV Vaccines Aged Out No longer eligi ble based on patient's age to complete this topic Meningococcal B Vaccine Aged Out No l onger eligible based on patient's age to complete this topic Meningococcal Vaccine Aged Out No noemí denis eligible based on patient's age to complete this topic RSV under 20 months Aged Out No longe r eligible based on patient's age to complete this topic Rotavirus Vaccines Aged Out No longer eligible based on patient's age to complete this topic Procedures Procedure Name Priority Date/Time Associated Diagnosis Comments HIV 1/2 ANTIGEN/ANTIBODY, FOURTH GENERATION W/RFL Routine 01/03/2022 1:30 PM EDT ZZZ HISTORICAL HEPATITIS C AB W/REFL TO HCV RNA, QN, PCR Routine 06/16/2021 2:12 PM EDT LIPID PANEL, STANDARD Routine 10/01/2019 1:04 PM EDT from Last 3 Months or Most Recently Relevant to Health Maintenance Results * HIV 1/2 ANTIGEN/ANTIBODY,FOURTH GENERATION W/RFL (01/03/2022 1:30 PM EDT) HIV-1/2 ANTIGEN AND ANTIBODIES, 4TH GENERATION W/ REFLEX NON-REACT BONY NON-REACT [facility] Comment: HIV-1 antigen and HIV-1/HIV-2 antibodies were not detected. There is no laboratory evidence of HIV infection. ?? PLEASE NOTE: This information has been disclosed to you from records whose confidentiality may be protected by state law. ??If your state requires such protection, then the state law prohibits you from making any further disclosure of the information without the specific written consent of the person to whom it pertains, or as otherwise permitted by law. A general authorization for the release of medical or other information is NOT sufficient for this purpose. ? For additional information please refer to http://education.Aequus Technologies.Boxee/faq/IXZ344 (This link is being provided for informational/ educational purposes only.) ? The performance of this assay has not been clinically validated in patients less than 2 years old. ?? 01/03/2022 1:30 PM EDT us Anitha Nicole MD LAB BLOOD ORDERABLES Final R esult [facility] * HEPATITIS C AB W/REFL TO HCV RNA, QN, PCR (06/16/2021 2:12 PM EDT) HEPATITIS C ANTIBODY NON-REACT BONY NON-REACT BONY [facility] INDEX 0.05 <1.00 [facility] Comment: ?? HCV antibody was non-reactive. There is no laboratory ?? evidence of HCV infection. ?? In most cases, no further action is required. However, if recent HCV exposure is suspected, a test for HCV RNA (test code 31721) is suggested. ?? For additional information please refer to http://Brandtree.GeoMetWatch/faq/TNY36c1 (This link is being provided for informational/ educational purposes only.) ?? 06/16/2021 2:12 PM EDT Anitha Nicole MD HISTORICAL/NON ORDERABLE LAB S Final Result [facility] [address] * (ABNORMAL) LIPID PANEL, STANDARD (10/01/2019 1:04 PM EDT) LDL Cholesterol 58 mg/dL (calc) [facility] Comment: Reference range: <100 ?? Desirable range <100 mg/dL for primary prevention; ?? <70 mg/dL for patients with CHD or diabetic patients ?? with > or = 2 CHD risk factors. ?? LDL-C is now calculated using the Arlet ?? calculation, which is a validated novel method providing ?? better accuracy than the Friedewald equation in the ?? estimation of LDL-C. ?? Parish DIAZ et al. GOVIND. 2013;310(19): 2325-1642 ?? (http://Brandtree.Vizimax/faq/FSX567) HDL Cholesterol 25(L) > OR = 40 mg/dL [facility] Cholesterol, Total 121 <200 mg/dL [facility] Triglycerides 361(H) <150 mg/dL [facility] Comment: ?? If a non-fasting specimen was collected, consider repeat triglyceride testing on a fasting specimen if clinically indicated. ?? Rajat et al. J. of Clin. Lipidol. 2015;9:129-169. ?? Triglycerides 361(H) <150 mg/dL [facility] Comment: ?? If a non-fasting specimen was collected, consider repeat triglyceride testing on a fasting specimen if clinically indicated. ?? Rajat et al. J. of Clin. Lipidol. 2015;9:129-169. ?? LDL Cholesterol 58 mg/dL (calc) [facility] Comment: Reference range: <100 ?? Desirable range <100 mg/dL for primary prevention; ?? <70 mg/dL for patients with CHD or diabetic patients ?? with > or = 2 CHD risk factors. ?? LDL-C is now calculated using the Parish-Heck ?? calculation, which is a validated novel method providing ?? better accuracy than the Friedewald equation in the ?? estimation of LDL-C. ?? Parish SS et al. GOVIND. 2013;310(19): 7499-6699 ?? (http://Blabroom/faq/PRP593) Chol/HDLC Ratio 4.8 <5.0 (calc) [facility] Chol/HDLC Ratio 4.8 <5.0 (calc) [facility] Non-HDL Cholesterol 96 <130 mg/dL (calc) [facility] Comment: For patients with diabetes plus 1 major ASCVD risk ?? factor, treating to a non-HDL-C goal of <100 mg/dL ?? (LDL-C of <70 mg/dL) is considered a therapeutic ?? option. Triglycerides 361(H) <150 mg/dL [facility] Comment: ?? If a non-fasting specimen was collected, consider repeat triglyceride testing on a fasting specimen if clinically indicated. ?? Rajat et al. J. of Clin. Lipidol. 2015;9:129-169. ?? LDL Cholesterol 58 mg/dL (calc) [facility] Comment: Reference range: <100 ?? Desirable range <100 mg/dL for primary prevention; ?? <70 mg/dL for patients with CHD or diabetic patients ?? with > or = 2 CHD risk factors. ?? LDL-C is now calculated using the Parish-Heck ?? calculation, which is a validated novel method providing ?? better accuracy than the Friedewald equation in the ?? estimation of LDL-C. ?? Parish SS et al. GOVIND. 2013;310(19): 5791-2607 ?? (http://Blabroom/faq/XVK660) HDL Cholesterol 25(L) > OR = 40 mg/dL [facility] Chol/HDLC Ratio 4.8 <5.0 (calc) [facility] Non-HDL Cholesterol 96 <130 mg/dL (calc) [facility] Comment: For patients with diabetes plus 1 major ASCVD risk ?? factor, treating to a non-HDL-C goal of <100 mg/dL ?? (LDL-C of <70 mg/dL) is considered a therapeutic ?? option. Cholesterol, Total 121 <200 mg/dL [facility] HDL Cholesterol 25(L) > OR = 40 mg/dL [facility] Non-HDL Cholesterol 96 <130 mg/dL (calc) [facility] Comment: For patients with diabetes plus 1 major ASCVD risk ?? factor, treating to a non-HDL-C goal of <100 mg/dL ?? (LDL-C of <70 mg/dL) is considered a therapeutic ?? option. Cholesterol, Total 121 <200 mg/dL [facility] 10/01/2019 1:04 PM EDT us Anitha Nicole MD LAB BLOOD ORDERABLES Final R esult [facility] [address] from Last 3 Months or Most Recently Relevant to Health Maintenance Insurance [address] [address] [address] [place] [address] [id number] [place] [id number]
--- NOTE | 2024-08-19 13:43 | A.OFFVIS_ITS ---
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 Intake Note: 6 month folow-up after [employer] check feeling good Human Services Professional Required: No Human Services Professional Services: Human Services Professional Present Human Services Professional Name: kathy Chen Allergies No Known Allergies Allergy (Verified 03/28/23 15:18) Medication List - Last Reconciled 08/19/24 by Arturo Gonzalez MD albuterol sulfate 90 mcg/actuation (ProAir HFA) 2 puffs inhalation Q4-6H PRN alcohol swabs (Alcohol Prep Pads) pad topical DIRECTED atorvastatin 40 mg PO DAILY blood sugar diagnostic (FreeStyle Lite Strips) As directed bupropion HCl XL 300 mg PO DAILY bupropion HCl XL 150 mg PO DAILY carvedilol 25 mg PO BID 90 days digoxin 250 mcg orally 5 days a week; No Digoxin on Monday and Monday ( may not be due for refill) 90 days docusate sodium 100 mg PO DAILY dulaglutide (Trulicity) 4.5 mg (0.5 mL) subcut QWEEK empagliflozin (Jardiance) 10 mg PO DAILY furosemide 20 mg PO 3XW gabapentin 300 mg PO DAILY insulin glargine (Lantus Solostar U-100 Insulin) 45 units (0.45 mL) subcut QPM 30 days magnesium citrate 150 mL PO DAILY PRN mineral oil (Fleet Mineral Oil enema) 118 mL AK DAILY PRN mirtazapine 15 mg PO BEDTIME multivitamin with folic acid 400 mcg (Tab-A-Parrish) 1 tab PO DAILY nitrofurantoin monohyd/m-cryst 100 mg (Macrobid) 100 mg PO Q12H 7 days omeprazole 20 mg PO BID pen needle, diabetic (Comfort EZ Pen [place]) As directed phenazopyridine (Pyridium) 200 mg PO TID 6 doses polyethylene glycol 3350 (Miralax) 17 grams PO BID quetiapine 25 mg PO BEDTIME quetiapine 200 mg PO BEDTIME sacubitril-valsartan 24-26 mg (Entresto) 1 tab PO BID sennosides (Natural Senna Laxative) 8.6 mg PO BEDTIME PRN simethicone 180 mg PO TID 30 days warfarin 5 mg See Protocol PO DAILY HPI Comments Details: Dereck comes for follow-up his heart failure. History was obtained with help of grain sampler. Patient has been feeling well. Has been doing his routine activity without any symptoms. Denies any worsening shortness of breath, orthopnea, PND, leg edema. He takes all his medications. Denies any prolonged palpitation, irregular heartbeat, lightheadedness, syncope, ICD discharge. No exertional chest pain. [facility] Medical History ICD (implantable cardioverter-defibrillator) in place Type 2 diabetes mellitus with hyperglycemia, with long-term current use of insulin Type 2 diabetes mellitus with hypoglycemia without coma Hyperlipidemia LDL goal <100 Controlled diabetes mellitus without complication, with long-term current use of insulin Prosthetic and other implants, materials and accessory gastroenterology and urology devices associated with adverse incidents DVT (deep venous thrombosis) Cardiomyopathy Surgical History History of implantable cardioverter-defibrillator (ICD) insertion Family History Father No problems noted. Mother Diabetes mellitus CVD (cardiovascular disease) Cancer Uterine cancer Cervical cancer Maternal Grandfather Prostate cancer Social History Household Members: None Housing: Apartment Alcohol intake: current Alcohol intake frequency: does not drink Patient Tobacco Use Status: Current everyday Tobacco user Tobacco use type: Cigarette Cigarettes Per Day: 7 service: No Current occupational status: unemployed Review of Systems Const Denies chills, Denies fatigue, Denies fever(s), Denies frequent falls, Denies weakness, Denies weight gain and Denies weight loss ENT Denies dizziness Card Denies chest pain, Denies leg edema, Denies lightheadedness, Denies palpitations, Denies dyspnea, Denies dyspnea on exertion, Denies orthopnea and Denies other (loss of consciousness) Resp Denies cough, Denies dyspnea and Denies dyspnea on exertion GI Denies hematochezia and Denies change in stool character Musc Denies abnormal gait, Denies muscle weakness, Denies numbness, Denies radiating pain into limb and Denies tingling Neuro Denies abnormal gait, Denies dizziness, Denies frequent falls, Denies numbness, Denies tingling and Denies weakness Endo Denies fatigue and Denies palpitations Physical Exam Vital Signs: Last Vital Signs Pulse 68 08/19/24 13:46 BP 110/70 08/19/24 13:46 BMI result Body Mass Index 29.5 Const General: cooperative, healthy appearing, comfortable and no acute distress Orientation/consciousness: patient oriented x3 Neck Neck: Yes normal visual inspection Resp Effort & Inspection: normal respiratory effort Auscultation: clear to auscultation bilaterally, no crackles, no rales, no rhonchi and no wheezes Cardio Jugular venous distension: no JVD Rate: regular rate Rhythm: regular rhythm Heart sounds: S1 normal heart sound present, S2 normal heart sound present, no murmurs and no rubs Neuro General: patient oriented x3 Extrem General: Yes normal to inspection Psych Appearance: grossly normal Mental Status: mental status grossly normal Speech and movement: Normal speech and movement present Office Procedures Cardiac Device Check Cardiac Device Check Details: Dual-chamber [employer] ICD in place. Programmed in DDDR at 60 beats per minute. Few episodes of nonsustained VT noted. Atrial pacing 4% of the time. No atrial fibrillation noted. No ICD therapy delivered. Atrial ventricular pacing thresholds excellent. Pacing and shock lead impedance is stable. 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 Clinically NYHA class 1. He has done well with current medical therapy. Continue current neurohormonal modulation with carvedilol, Jardiance, Entresto. Has been on oral anticoagulation therapy due to prior LV thrombus in the setting of cardiomyopathy and apical clot. Continue current low-dose diuretic therapy. Daily weight monitoring avoidance salt loading was discussed encouraged to increase activity level as tolerated. Follow-up echocardiogram 6 months time. (2) ICD (implantable cardioverter-defibrillator) in place: Comment: [employer] dual-chamber ICD in place, 2011 Code(s): Z95.810 - Presence of automatic (implantable) cardiac defibrillator Category: Medical Plan: Dual-chamber ICD in place placed in 2012 for prevention of sudden cardiac that. Has done well. Continues to have multiple episodes of nonsustained VT without any ICD therapy provided. Continue beta-edwina therapy. Avoidance of stimulants was discussed. Will continue monitor remotely for heart failure and device check. Will follow up in the clinic in 6 months time, sooner p.r.n.. Thank you for allowing me to partake in his care Orders: Orders CA echo transthoracic complete Today I50.20 - Unspecified systolic (congestive) heart failure Digoxin Today I50.20 - Unspecified systolic (congestive) heart failure Basic Metabolic Panel Today I50.20 - Unspecified systolic (congestive) heart failure Coding Level of Care Code Est Pt Level 4 (70851) Complex EM visit Add On G2211 Diagnoses Heart failure with reduced ejection fraction I50.20 ICD (implantable cardioverter-defibrillator) in place Z95.810 CPT Codes Cardiac Device Check - Cardiac Device 5: 13697-TA Cardiac Device Check, dual lead implantable defibrillator ([id number])
[2024-08-19 13:46] VITALS: BP 110/70; PULSE 68; BMI 29.5
== END 2024-08-19 14:13 | disposition home or self-care (01) ==
LOC: HO.HCS 12:56
PROVIDERS: PCP Nurse Practitioner Family; Visit Provider Internal Medicine Cardiovascular Disease
DX: I50.20 Unspecified systolic (congestive) heart failure (principal); Z95.810 Presence of automatic (implantable) cardiac defibrillator
CPT/HCPCS: 93283; 99214; G2211

== ENCOUNTER → 2024-10-01 23:59 | Outpatient (BNV) | payer OTHER, SELFPAY ==
--- NOTE | 2024-10-01 15:00 | A.OFFVIS_ITS ---
Intake Visit Reasons: Remote ICD check- [employer] Allergies No Known Allergies Allergy (Verified 03/28/23 15:18) [facility] Medical History ICD (implantable cardioverter-defibrillator) in place Type 2 diabetes mellitus with hyperglycemia, with long-term current use of insulin Type 2 diabetes mellitus with hypoglycemia without coma Hyperlipidemia LDL goal <100 Controlled diabetes mellitus without complication, with long-term current use of insulin Prosthetic and other implants, materials and accessory gastroenterology and urology devices associated with adverse incidents DVT (deep venous thrombosis) Cardiomyopathy Surgical History History of implantable cardioverter-defibrillator (ICD) insertion Family History Father No problems noted. Mother Diabetes mellitus CVD (cardiovascular disease) Cancer Uterine cancer Cervical cancer Maternal Grandfather Prostate cancer Social History Household Members: None Housing: Apartment Alcohol intake: current Alcohol intake frequency: does not drink Patient Tobacco Use Status: Current everyday Tobacco user Tobacco use type: Cigarette Cigarettes Per Day: 7 service: No Current occupational status: unemployed Office Procedures Cardiac Device Check Cardiac Device Check Details: Remote ICD report generated 10/01/2024. ICD function is adequate. [place] [id number] Cardiac Interrogation, implant defibrillator w/interim Procedure code (CPT) selection complete Assessment & Plan Assessment & Plan (1) ICD (implantable cardioverter-defibrillator) in place: Comment: [employer] dual-chamber ICD in place, 2011 Code(s): Z95.810 - Presence of automatic (implantable) cardiac defibrillator Category: Medical Plan: See above Coding Level of Care Code Procedure Only Diagnoses ICD (implantable cardioverter-defibrillator) in place Z95.810 CPT Codes Cardiac Device Check - Cardiac Device 13: 05305-[id number] Cardiac Interrogation, implant defibrillator w/interim ([id number])
== END ==
PROVIDERS: PCP Nurse Practitioner Family; Visit Provider Internal Medicine Cardiovascular Disease
DX: I47.20 Ventricular tachycardia, unspecified (principal); Z95.810 Presence of automatic (implantable) cardiac defibrillator
CPT/HCPCS: 93295

== ENCOUNTER 2024-11-27 12:49 | Emergency (ER) | payer OTHER, SELFPAY ==
[2024-11-27 13:20] VITALS: BP 108/59; PULSE 91; RESP 18; TEMP 37; O2SAT 97; BMI 29.4
--- NOTE | 2024-11-27 13:21 | ED.GENADULT ---
HPI - General Adult General Chief complaint: Urogenital-Male Stated complaint: Blood in Urine Sore Throat Time Seen by Provider: 11/27/24 17:14 Source: patient Mode of arrival: ambulatory Limitations: no limitations and language barrier History of Present Illness ED Provider: Dr. Gomez HPI narrative: This is a 54-year-old male history of defibrillator placement due to ventricular tachycardia in the past, HFrEF, DVT on anticoagulants Coumadin, cardiomyopathy presents to the ER today for sore throat of 3 days. Patient is also complaining of back pain. Patient describes intermittent hematuria. Patient describes this as a small drop of blood in his urine. Denies any yifan hematuria. But his main concern is sore throat. Patient stated it is difficult for him to swallow due to his throat pain. It is difficult for him to eat as well. Related Data Home Medications ?Medication ?Instructions ?Recorded ?Confirmed gabapentin 300 mg capsule 300 mg PO DAILY 01/06/20 08/19/24 quetiapine 25 mg tablet 25 mg PO BEDTIME 01/06/20 08/19/24 albuterol sulfate 90 mcg/actuation 2 puff inhalation Q4-6H PRN Cold 06/04/21 08/19/24 aerosol inhaler (ProAir HFA) Symptoms alcohol swabs (Alcohol Prep Pads) pad topical DIRECTED 06/04/21 08/21/23 blood sugar diagnostic (FreeStyle #10 ea 06/04/21 02/20/23 Lite Strips) multivitamin with folic acid 400 1 tab PO DAILY 06/04/21 08/19/24 mcg tablet (Tab-A-Parrish) pen needle, diabetic 33 gauge x #100 ea 06/04/21 02/20/2332 (Comfort EZ Pen [place]) mirtazapine 15 mg tablet 15 mg PO BEDTIME 12/02/21 08/19/24 empagliflozin 10 mg tablet 10 mg PO DAILY 06/06/22 08/19/24 (Jardiance) quetiapine 200 mg tablet 200 mg PO BEDTIME 06/06/22 08/19/24 bupropion HCl 300 mg 24 hr tablet, 300 mg PO DAILY 07/04/22 08/19/24 extended release bupropion HCl 150 mg 24 hr tablet, 150 mg PO DAILY 08/21/23 08/19/24 extended release Previous Rx's ?Medication ?Instructions ?Recorded docusate sodium 100 mg capsule 100 mg PO DAILY #30 caps 07/15/20 sennosides 8.6 mg tablet (Natural 8.6 mg PO BEDTIME PRN constipation 07/15/20 Senna Laxative) #30 tabs simethicone 180 mg capsule 180 mg PO TID 30 days #90 caps 07/15/20 mineral oil (Fleet Mineral Oil 118 ml OR DAILY PRN constipation 11/14/20 enema) #6,384 mL magnesium citrate 150 ml PO DAILY PRN constipation 01/04/21 #296 mL polyethylene glycol 3350 17 17 g PO BID constipation #119 grams 08/24/21 gram/dose oral powder (Miralax) warfarin 5 mg tablet 5 mg PO DAILY #90 tabs 10/05/21 dulaglutide 4.5 mg/0.5 mL 4.5 mg (0.5 mL) subcut QWEEK #2 mL 10/07/21 subcutaneous pen injector (Trulicity) omeprazole 20 mg capsule,delayed 20 mg PO BID #60 caps 12/22/21 release nitrofurantoin 100 mg PO Q12H 7 days #14 caps 03/20/22 monohydrate/macrocrystals 100 mg capsule (Macrobid) phenazopyridine 200 mg tablet 200 mg PO TID 6 doses #6 tabs 03/20/22 (Pyridium) insulin glargine 100 unit/mL (3 45 unit (0.45 mL) subcut QPM 30 07/19/22 mL) subcutaneous pen (Lantus days #13.5 mL Solostar U-100 Insulin) carvedilol 25 mg tablet 25 mg PO BID 90 days #180 tabs 12/14/23 digoxin 250 mcg (0.25 mg) tablet 250 mcg PO .COMPLEX 90 days #60 12/27/23 tabs furosemide 20 mg tablet 20 mg PO 3XW #36 tabs 01/10/24 sacubitril 24 mg-valsartan 26 mg 1 tab PO BID #180 tabs 02/28/24 tablet (Entresto) atorvastatin 40 mg tablet 40 mg PO DAILY #90 tabs 11/08/24 amoxicillin 500 mg capsule 500 mg PO BID 7 days #14 caps 11/27/24 Allergies Allergy/AdvReac Type Severity Reaction Status Date / Time No Known Allergies Allergy Verified 11/27/24 13:24 Review of Systems Review of Systems: Pertinent review of systems as mentioned in HPI. All other system otherwise negative. [facility] Past Medical History [facility] Narrative: Medical history as mentioned in HPI Medical History ICD (implantable cardioverter-defibrillator) in place Type 2 diabetes mellitus with hyperglycemia, with long-term current use of insulin Type 2 diabetes mellitus with hypoglycemia without coma Hyperlipidemia LDL goal <100 Controlled diabetes mellitus without complication, with long-term current use of insulin Prosthetic and other implants, materials and accessory gastroenterology and urology devices associated with adverse incidents DVT (deep venous thrombosis) Cardiomyopathy Surgical History History of implantable cardioverter-defibrillator (ICD) insertion Family History Family History Father No problems noted. Mother Diabetes mellitus CVD (cardiovascular disease) Cancer Uterine cancer Cervical cancer Maternal Grandfather Prostate cancer Social History Social History Household Members: None Housing: Apartment Alcohol intake: current Alcohol intake frequency: does not drink Patient Tobacco Use Status: Current everyday Tobacco user Tobacco use type: Cigarette Cigarettes Per Day: 7 Smoked in Last 30 Days: No Use of substances other than those prescribed or required for medical reasons: No Advance Directives: No Advance Directives Information Provided: No Do you have a plan to hurt others: No Plan service: No Current occupational status: unemployed Physical Exam ED Exam Exam: General: Pleasant, no distress, interacting appropriately Head: Normacephalic, atraumatic ENT: Erythema of the oropharynx, there is some exudate bilateral tonsils. Cardiovascular: regular rate, regular rhythm, no murmurs, rubbing, gallops Respiratory: CTAB, no wheeze, rales, rhonchi Gastrointestinal: Soft, non distended, non tender, non guarding Skin: Warm and dry Psychiatric: Appropriate mood and thoughts Vital Signs: Vital Signs - 24 hr 11/27/24 13:20 11/27/24 16:55 11/27/24 17:46 Temperature 98.6 F 97.8 F 99.1 F Pulse Rate 91 76 74 Respiratory Rate 18 18 15 Blood Pressure 108/59 L 76/50 L 99/55 L Pulse Oximetry 97 97 98 Oxygen Delivery Method Room Air Room Air Room Air BMI result Body Mass Index 29.4 Course Course Course Narrative: This is an RME: Additional HPI, ROS, PE not included below will be deferred to primary provider. RME assessment and note performed by: Amelia Gutierrez PA-C This is a 28-scbe-nvx-male, with a hx of DM2, HLD, cardiomyopathy, who presents to the ER with complaints of hematuria and sore throat x 3 days. Reporting body aches and back pain. Reporting subjective fevers/chills at night. Oral pharynx with BL tonsillar hypertrophy and exudates. Plan: labs, ua, strep, viral swabs Medications Administered Discontinued Medications Generic Name Dose Route Start Last Admin Trade Name Freq PRN Reason Stop Dose Admin Acetaminophen 975 mg 11/27/24 17:59 11/27/24 18:29 Acetaminophen 325 Mg Tablet PO 11/27/24 18:00 975 mg ONCE ONE Administration Amoxicillin 1,000 mg 11/27/24 17:38 11/27/24 17:52 Amoxicillin 500 Mg Capsule PO 11/27/24 17:39 1,000 mg ONCE ONE Administration Sodium Chloride 500 mls @ 500 mls/hr 11/27/24 18:00 11/27/24 18:24 Ns IV 11/27/24 18:59 500 mls/hr .Q1H GLENN Administration Lidocaine HCl 15 ml 11/27/24 17:39 11/27/24 17:52 Lidocaine Hcl Viscous 2 % 15 Ml Solution MUCOUS MEM 11/27/24 17:40 15 ml ONCE ONE Administration Potassium Bicarbonate 25 meq 11/27/24 17:39 11/27/24 17:52 Potassium Bicarbonate/Cit Ac 25 Meq Tablet.Eff PO 11/27/24 17:40 25 meq ONCE ONE Administration Medical Decision Making Medical Decision Making MDM Narrative: This is a 54-year-old male history of ventricular tachycardia with defibrillator, DVT on warfarin, CHF presented hospital today for evaluation of sore throat blurred class 3 days and intermittent hematuria We will obtain UA to rule out UTI for the patient does time. However encouraged the patient to follow with Urology for a cystoscopy to assess the source of his hematuria. This might be secondary to his warfarin usage. He denies any dysuria. He is complaining of pain in his neck. We will plan to give him some viscous lidocaine, patient is noted to be hypokalemic at 3.1. Hgb 13.7 We will plan to replete with some p.o. potassium. Blood pressure is on the soft side 99/55 will plan to give patient 500 cc IV fluid with a history of CHF we will continue to watch his respiratory status. 1 g of amoxicillin will be provided to the patient. P.o. Tylenol will be given to the patient as well. Patient has slight leukocytosis at 11 on lab work. I do not think patient has sepsis. No sign of tachycardia. No signs of fever here. Blood pressure is 110/71 on reassessment. Patient is feeling better we will have the viscous lidocaine. We will plan to discharge patient with a course of amoxicillin to take. Patient appears well does not appear to be toxic In-person mechanical maintenance engineer was used for this encounter. Differential Diagnosis Differential Diagnoses: The differential diagnosis associated with the presentation includes Strep pharyngitis, mono, URI, UTI, hematuria Lab Data MDM Lab Attestation statement: I reviewed the patient's lab results. 11/27/24 13:34 11/27/24 13:34 Labs: Lab Results 11/27/24 11/27/24 11/27/24 Range/Units 13:34 13:35 18:26 WBC 11.3 H (4.8-10.8) X10*3/uL RBC 4.70 (4.60-5.80) X10*6/uL Hgb 13.7 L (14.0-18.0) g/dl Hct 40.0 L (42.0-52.0) % MCV 85.1 (80.0-98.0) fL MCH 29.1 (27.0-33.0) pg MCHC 34.3 (31.0-36.0) g/dl RDW 13.0 (11.0-16.0) % Plt Count 131 L (160-400) X10*3/uL MPV 10.7 (9.4-12.4) fL Immature Gran % (Auto) 0.8 H (0.0-0.4) % Neut % (Auto) 80.5 H (45-73) % Lymph % (Auto) 8.6 L (20-40) % [place] % (Auto) 9.8 (2-11) % Eos % (Auto) 0.1 (0-4) % Baso % (Auto) 0.2 (0-2) % Lymph # (Auto) 1.0 L (1.2-4.9) X10*3/uL [place] # (Auto) 1.1 (0.1-1.2) X10*3/uL Eos # (Auto) 0.0 (0.0-0.4) X10*3/uL Baso # (Auto) 0.0 (0.0-0.2) X10*3/uL Abs Immat Gran (auto) 0.09 H (0.00-0.03) X10*3/uL Absolute Neuts (auto) 9.1 H (2.0-8.3) x10*3/uL Absolute Nucleated RBC 0.000 (0.0-0.012) X10*3/uL Nucleated RBC % (auto) 0.0 (0.0-0.2) /100WBC Sodium 133 L (135-145) mmol/L Potassium 3.1 L (3.3-5.1) mmol/L Chloride 98 (96-108) mmol/L Carbon Dioxide 25 (22-29) mmol/L Anion Gap 13 (12-20) BUN 15 (9-16) mg/dL Creatinine 1.30 (0.5-1.4) mg/dL Estim Creat Clear Calc 61.8 Estimated GFR 58 Random Glucose 220 H (60-115) mg/dL Calcium 8.7 D (8.4-10.2) mg/dL Total Bilirubin 1.8 H (0.0-1.0) mg/dL AST 31 (5-37) U/L ALT 21 (0-40) U/L Alkaline Phosphatase 162 H (39-117) U/L Total Protein 7.2 (6.5-8.0) g/dL Albumin 4.1 (3.5-5.0) g/dL Urine Color DK YELLOW Urine Appearance Clear Urine pH 6.0 (5.0-9.0) Ur Specific [place] 1.010 (1.005-1.025) Urine Protein Negative (Neg-Trace) mg/dL Urine Glucose (UA) >=1000 H (Negative) mg/dL Urine Ketones Negative (Negative) mg/dL Urine Blood Trace (Negative) Urine Nitrite Negative (Negative) Ur Leukocyte Esterase Negative (Negative) Urine RBC 3-5 H (0-2) /HPF Urine WBC 0-5 (0-5) /HPF Ur Squamous Epith Cells 0-2 (0-2) /HPF Urine Bacteria Trace (None Seen) Hyaline Casts 0-2 (0-2) /LPF COVID-19 (NIKO) Negative (Negative) COVID-19 Clin Com See Note Influenza Type A (KAUSHAL) Negative (Negative) Influenza Type B (KAUSHAL) Negative (Negative) Influenza A & B Note See Note S. pyogenes GrpA KAUSHAL Positive A (Negative) Chronic Conditions CHF Discharge Plan Discharge Clinical Impression: Acute streptococcal pharyngitis Patient Disposition: Home, Self-Care Instructions: Strep Throat (ED) Prescriptions: New amoxicillin 500 mg capsule 500 mg PO BID 7 Days Qty: 14 0RF No Action polyethylene glycol 3350 [Miralax] 17 gram/dose powder 17 g PO BID Qty: 119 3RF Trulicity 4.5 mg/0.5 mL pen injector 4.5 mg subcut QWEEK Qty: 2 6RF omeprazole 20 mg capsule,delayed release(DR/EC) 20 mg PO BID Qty: 60 3RF carvedilol 25 mg tablet 25 mg PO BID 90 Days Qty: 180 3RF digoxin 250 mcg (0.25 mg) tablet 250 mcg PO .COMPLEX 90 Days Qty: 60 3RF Rx Instructions: 250 mcg orally 5 days a week; No Digoxin on Monday and Monday ( may not be due for refill) furosemide 20 mg tablet 20 mg PO 3XW Qty: 36 5RF Entresto 24-26 mg tablet 1 tab PO BID Qty: 180 3RF atorvastatin 40 mg tablet 40 mg PO DAILY Qty: 90 2RF mineral oil [Fleet Mineral Oil] Enema 118 ml OR DAILY PRN (Reason: constipation) Qty: 6384 0RF Rx Instructions: discard any unused portion warfarin 5 mg tablet 5 mg PO DAILY Qty: 90 3RF Protocol: Dose Management Condition: Monday (Week One) Dose/Route: 5 mg Instruction: 1 x 5 mg tablet Condition: Monday Dose/Route: 2.5 mg Instruction: 0.5 x 5 mg tablets Condition: Monday Dose/Route: 2.5 mg Instruction: 0.5 x 5 mg tablets Condition: Monday Dose/Route: 2.5 mg Instruction: 0.5 x 5 mg tablets Condition: Dose/Route: 2.5 mg Instruction: 0.5 x 5 mg tablets Condition: Monday Dose/Route: 0 mg Instruction: 0 tablets Condition: Monday Dose/Route: 2.5 mg Instruction: 0.5 x 5 mg tablets Condition: Monday (Week Two) Dose/Route: 5 mg Instruction: 1 x 5 mg tablet Condition: Monday Dose/Route: 2.5 mg Instruction: 0.5 x 5 mg tablets Condition: Monday Dose/Route: 2.5 mg Instruction: 0.5 x 5 mg tablets Condition: Monday Dose/Route: 2.5 mg Instruction: 0.5 x 5 mg tablets Condition: Dose/Route: 2.5 mg Instruction: 0.5 x 5 mg tablets Condition: Monday Dose/Route: 2.5 mg Instruction: 0.5 x 5 mg tablets Condition: Monday Dose/Route: 2.5 mg Instruction: 0.5 x 5 mg tablets Protocol Text: Adjustment Start Date: Monday08/12/22 INR Value: 4.2 INR Date: 08/12/22 Recheck Date: 08/19/22 Rx Instructions: take as directed nitrofurantoin monohyd/m-cryst [Macrobid] 100 mg capsule 100 mg PO Q12H 7 Days Qty: 14 0RF Rx Instructions: must administer with a meal/food phenazopyridine [Pyridium] 200 mg tablet 200 mg PO TID Qty: 6 0RF quetiapine 25 mg tablet 25 mg PO BEDTIME gabapentin 300 mg capsule 300 mg PO DAILY docusate sodium 100 mg capsule 100 mg PO DAILY Qty: 30 3RF sennosides [Natural Senna Laxative] 8.6 mg tablet 8.6 mg PO BEDTIME PRN (Reason: constipation) Qty: 30 1RF simethicone 180 mg capsule 180 mg PO TID 30 Days Qty: 90 3RF Rx Instructions: after meals magnesium citrate Solution 150 ml PO DAILY PRN (Reason: constipation) Qty: 296 2RF multivitamin with folic acid [Tab-A-Parrish] 400 mcg tablet 1 tab PO DAILY (DME) pen needle, diabetic [Comfort EZ Pen [place]] 33 gauge x 5/32 needle See Rx Instructions .ROUTE QID Qty: 100 Rx Instructions: As directed albuterol sulfate [ProAir HFA] 90 mcg/actuation HFA aerosol inhaler 2 puff inhalation Q4-6H PRN (Reason: Cold Symptoms) alcohol swabs [Alcohol Prep Pads] Pads, Medicated topical DIRECTED (DME) FreeStyle Lite Strips Strip See Rx Instructions topical .MEDSUPPLY Qty: 10 Rx Instructions: As directed mirtazapine 15 mg tablet 15 mg PO BEDTIME bupropion HCl 150 mg tablet extended release 24 hr 150 mg PO DAILY quetiapine 200 mg tablet 200 mg PO BEDTIME Jardiance 10 mg tablet 10 mg PO DAILY bupropion HCl 300 mg tablet extended release 24 hr 300 mg PO DAILY Lantus Solostar U-100 Insulin 100 unit/mL (3 mL) insulin pen 45 unit subcut QPM 30 Days Qty: 13.5 6RF Referrals: [facility] [place] Urology Services [Provider Group, Urology] Referral Note: Hematuria Print Language: Indonesian
[2024-11-27 13:39] LABS: MANUAL DIFF FLAG NO
[2024-11-27 13:49] LABS: Hematocrit 40.0 % (42.0-52.0); Hemoglobin 13.7 g/dl (14.0-18.0); Imm Gran Abs Auto 0.09 X10*3/uL (0.00-0.03); Imm Gran Pct Auto 0.8 % (0.0-0.4); Lymphocytes Absolute Auto 1.0 X10*3/uL (1.2-4.9); Mean Corpuscular HGB Conc 34.3 g/dl (31.0-36.0); Mean Corpuscular Hemoglobin 29.1 pg (27.0-33.0); Mean Corpuscular Volume 85.1 fL (80.0-98.0); NRBC Abs Auto 0.000 X10*3/uL (0.0-0.012); NRBC Pct Auto 0.0 /100WBC (0.0-0.2); Platelet Count 131 X10*3/uL (160-400); Red Blood Count 4.70 X10*6/uL (4.60-5.80); White Blood Count 11.3 X10*3/uL (4.8-10.8)
[2024-11-27 13:49] LABS: IDNOW Serial# 55D5AD1C; Strep A Nucleic Acid Positive (Negative)
[2024-11-27 13:56] LABS: Alanine Aminotransferase 21 U/L (0-40); Albumin Level 4.1 g/dL (3.5-5.0); Alkaline Phosphatase 162 U/L (39-117); Anion Gap 13 (12-20); Aspartate Amino Transferase 31 U/L (5-37); Blood Urea Nitrogen 15 mg/dL (9-16); Calcium 8.7 mg/dL (8.4-10.2); Carbon Dioxide 25 mmol/L (22-29); Chloride 98 mmol/L (96-108); Creatinine Clr Calc Pharmacy 61.8; Estimated Glomerular Filt Rate 58; IDNOW Serial# 08D9AD1C; Influenza B2 Negative (Negative); Potassium 3.1 mmol/L (3.3-5.1); Sodium 133 mmol/L (135-145); Total Protein 7.2 g/dL (6.5-8.0)
[2024-11-27 13:56] LABS: COVID-19 Test Negative (Negative); IDNOW Serial# 6674DD1D
[2024-11-27 16:55] VITALS: BP 76/50; PULSE 76; RESP 18; TEMP 36.6; O2SAT 97
--- OUTSIDE RECORDS SUMMARY | 2024-11-27 17:23 | XMS_ITS | Clinical Summary ---
Author Organization [employer] [facility] Address [address] [place] [address] Care Team Providers Care Senior Net Engineer Name Role Phone Unavailable Primary Care Provider [...] FOBT 1971 SDOH Screening 1971 Sigmoidoscopy 1971 Disability Screening 1971 Alcohol/Substance Use Screening 1983 Tobacco Screening 1983 Pneumococcal Vaccine: 50+ Years (2 of 2 - PCV) 11/14/2018 11/14/2017, 11/26/2013, 06/06/2013, Additional history exists Zoster Vaccines (1 of 2) 07/07/2021 COVID-19 Vaccine ( - season) 2023 06/21/2022, 05/10/2021, 06/23/2020, Additional history exists Lipid Panel 09/30/2024 10/01/2019 Influenza Vaccine (#1) 2024 2, 01/31/2022, 02/10/2021, Additional history exists DTaP/Tdap/Td Vaccines (3 - Td or Tdap) [...] is no laboratory evidence of HIV infection. PLEASE NOTE: This information has been disclosed to you from records whose confidentiality may be protected by state law. If your state requires such protection, then the state law prohibits you from making any further disclosure of the information without the specific written consent of the person to whom it pertains, or as otherwise permitted by law. A general authorization for the release of medical or other information is NOT sufficient for this purpose. For additional information please refer to http://education.Kiwi.[employer]/faq/VXH532 (This link is being provided for informational/ educational purposes only.) The performance of this assay has not been clinically validated in patients less than 2 years old. 01/03/2022 1:30 PM EDT Anitha Nicole MD LAB BLOOD ORDERABLES Final R esult CONVERT[facility]GACY LAB[facility] * HEPATITIS C AB W/REFL TO HCV RNA, QN, PCR (06/16/2021 2:12 PM EDT) HEPATITIS C ANTIBODY NON-REACT [facility] NON-REACT [facility] INDEX 0.05 <1.00 [facility] Comment: HCV antibody was non-reactive. There is no laboratory evidence of HCV infection. In most cases, no further action is required. However, if recent HCV exposure is suspected, a test for HCV RNA (test code 38144) is suggested. For additional information please refer to http://Trendy Mondays.[facility]/faq/HUD04q8 (This link is being provided for informational/ educational purposes only.) 06/16/2021 2:12 PM EDT us Anitha Nicole MD HISTORICAL/NON ORDERABLE LAB S Final Result [facility] [address] * (ABNORMAL) LIPID PANEL, STANDARD (10/01/2019 1:04 PM EDT) LDL Cholesterol 58 mg/dL (calc) [facility] Comment: Reference range: <100 Desirable range <100 mg/dL for primary prevention; <70 mg/dL for patients with CHD or diabetic patients with > or = 2 CHD risk factors. LDL-C is now calculated using the Parish-Heck calculation, which is a validated novel method providing better accuracy than the Friedewald equation in the estimation of LDL-C. Parish SS et al. GOVIND. 2013;310(19): 5420-8949 (http://education.AppointmentCity/faq/FXH380) HDL Cholesterol 25(L) > OR = 40 mg/dL [facility] Cholesterol, Total 121 <200 mg/dL [facility] Triglycerides 361(H) <150 mg/dL [facility] Comment: If a non-fasting specimen was collected, consider repeat triglyceride testing on a fasting specimen if clinically indicated. Earl et al. J. of Clin. Lipidol. 2015;9:129-169. Triglycerides 361(H) <150 mg/dL [facility] Comment: If a non-fasting specimen was collected, consider repeat triglyceride testing on a fasting specimen if clinically indicated. Rajat et al. J. of Clin. Lipidol. 2015;9:129-169. LDL Cholesterol 58 mg/dL (calc) [facility] Comment: Reference range: <100 Desirable range <100 mg/dL for primary prevention; <70 mg/dL for patients with CHD or diabetic patients with > or = 2 CHD risk factors. LDL-C is now calculated using the Parish-Heck calculation, which is a validated novel method providing better accuracy than the Friedewald equation in the estimation of LDL-C. Parish SS et al. GOVIND. 2013;310(19): 9044-1763 (http://education.Pivotstream.[employer]/faq/CQD533) Chol/HDLC Ratio 4.8 <5.0 (calc) [facility] Chol/HDLC Ratio 4.8 <5.0 (calc) [facility] Non-HDL Cholesterol 96 <130 mg/dL (calc) [facility] Comment: For patients with diabetes plus 1 major ASCVD risk factor, treating to a non-HDL-C goal of <100 mg/dL (LDL-C of <70 mg/dL) is considered a therapeutic option. Triglycerides 361(H) <150 mg/dL [facility] Comment: If a non-fasting specimen was collected, consider repeat triglyceride testing on a fasting specimen if clinically indicated. Rajat et al. J. of Clin. Lipidol. 2015;9:129-169. LDL Cholesterol 58 mg/dL (calc) [facility] Comment: Reference range: <100 Desirable range <100 mg/dL for primary prevention; <70 mg/dL for patients with CHD or diabetic patients with > or = 2 CHD risk factors. LDL-C is now calculated using the Parish-Heck calculation, which is a validated novel method providing better accuracy than the Friedewald equation in the estimation of LDL-C. Parish SS et al. GOVIND. 2013;310(19): 5473-6916 (http://education.Pivotstream.com/faq/IRS132) HDL Cholesterol 25(L) > OR = 40 mg/dL [facility] Chol/HDLC Ratio 4.8 <5.0 (calc) [facility] Non-HDL Cholesterol 96 <130 mg/dL (calc) [facility] Comment: For patients with diabetes plus 1 major ASCVD risk factor, treating to a non-HDL-C goal of <100 mg/dL (LDL-C of <70 mg/dL) is considered a therapeutic option. Cholesterol, Total 121 <200 mg/dL [facility] HDL Cholesterol 25(L) > OR = 40 mg/dL [facility] Non-HDL Cholesterol 96 <130 mg/dL (calc) [facility] Comment: For patients with diabetes plus 1 major ASCVD risk factor, treating to a non-HDL-C goal of <100 mg/dL (LDL-C of <70 mg/dL) is considered a therapeutic option. Cholesterol, Total 121 <200 mg/dL [facility] 10/01/2019 1:04 PM EDT us Anitha Nicole MD LAB BLOOD ORDERABLES Final R esult [facility] [address] from Last 3 Months or Most Recently Relevant to Health Maintenance Insurance [facility] STANDARD
[2024-11-27 17:46] VITALS: BP 99/55; PULSE 74; RESP 15; TEMP 37.3; O2SAT 98
[2024-11-27] MEDS: Lidocaine HCl Viscous 2 % 15 ML SOLUTION MUCOUS MEM (17:52)
[2024-11-27] MEDS: Potassium Bicarbonate/Cit AC 25 MEQ TABLET.EFF PO (17:52)
--- NOTE | 2024-11-27 17:54 | PC.NURSE ---
pt medicated per provider order. effectiveness pending.
[2024-11-27 18:40] LABS: Appearance Urine Clear; Glucose Urine UA >=1000 mg/dL (Negative); PH 6.0 (5.0-9.0); Specific Gravity - Urine 1.010 (1.005-1.025); UMIC TRIGGER UACC YES
[2024-11-27 19:33] VITALS: BP 102/66; PULSE 78; RESP 20; TEMP 36.6; O2SAT 97
[2024-11-27 19:47] VITALS: BP 98/63; PULSE 73; RESP 16; TEMP 36.9; O2SAT 96
[2024-11-27 19:58] VITALS: BP 98/63; PULSE 73; RESP 16; TEMP 36.9; O2SAT 96
== END 2024-11-27 19:58 | disposition home or self-care (01) ==
PROVIDERS: Physician Assistant Medical; Emergency Provider Student in an Organized Health Care Education/Training Program; PCP Nurse Practitioner Family
DX: J02.0 Streptococcal pharyngitis (principal); E11.9 Type 2 diabetes mellitus without complications; F17.200 Nicotine dependence, unspecified, uncomplicated; Z86.718 Personal history of other venous thrombosis and embolism; Z79.01 Long term (current) use of anticoagulants; Z79.4 Long term (current) use of insulin; Z71.6 Tobacco abuse counseling
CPT/HCPCS: 80053; 81001; 85025; 87502; 87635; 87651; 99283; 99285

== ENCOUNTER 2025-02-17 12:59 | Outpatient (AMB) | payer OTHER, SELFPAY ==
--- NOTE | 2025-02-17 13:11 | MHC.OFFVIS ---
Vital Signs 02/17/25 13:12 Height 5 ft 4 in Weight 169 lb 12.095 oz BMI 29.1 BP 122/74 Blood Pressure Location Lt brachial Position Sitting Pulse 86 Intake Visit Reasons: 6 mth s/p echo/ w/ [facility] Intake Note: 6 month follow-up after [facility] check feeling good Decorative Cutting Machine Tender Required: Yes Decorative Cutting Machine Tender Name: kathy Peterson Allergies No Known Allergies Allergy (Verified 11/27/24 13:24) Medication List - Last Reconciled 02/17/25 by Arturo Gonzalez MD albuterol sulfate 90 mcg/actuation (ProAir HFA) 2 puffs inhalation Q4-6H PRN alcohol swabs (Alcohol Prep Pads) pad topical DIRECTED amoxicillin 500 mg PO BID 7 days atorvastatin 40 mg PO DAILY blood sugar diagnostic (FreeStyle Lite Strips) As directed bupropion HCl XL 300 mg PO DAILY bupropion HCl XL 150 mg PO DAILY carvedilol 25 mg PO BID 90 days digoxin 250 mcg orally 5 days a week; No Digoxin on Monday and Monday ( may not be due for refill) 90 days docusate sodium 100 mg PO DAILY dulaglutide (Trulicity) 4.5 mg (0.5 mL) subcut QWEEK empagliflozin (Jardiance) 10 mg PO DAILY furosemide 20 mg PO 3XW gabapentin 300 mg PO DAILY insulin glargine (Lantus Solostar U-100 Insulin) 45 units (0.45 mL) subcut QPM 30 days magnesium citrate 150 mL PO DAILY PRN mineral oil (Fleet Mineral Oil enema) 118 mL NM DAILY PRN mirtazapine 15 mg PO BEDTIME multivitamin with folic acid 400 mcg (Tab-A-Parrish) 1 tab PO DAILY nitrofurantoin monohyd/m-cryst 100 mg (Macrobid) 100 mg PO Q12H 7 days omeprazole 20 mg PO BID pen needle, diabetic (Comfort EZ Pen [place]) As directed phenazopyridine (Pyridium) 200 mg PO TID 6 doses polyethylene glycol 3350 (Miralax) 17 grams PO BID quetiapine 25 mg PO BEDTIME quetiapine 200 mg PO BEDTIME sacubitril-valsartan 24-26 mg (Entresto) 1 tab PO BID sennosides (Natural Senna Laxative) 8.6 mg PO BEDTIME PRN simethicone 180 mg PO TID 30 days warfarin 5 mg See Protocol PO DAILY HPI Comments Details: Dereck comes for follow-up. History was obtained with help of director of retail merchandising. Patient is doing well. She denies any cardiac symptoms. No exertional chest pain or shortness of breath. No orthopnea, PND, leg edema, weight gain. Takes all his medications. No lightheadedness, syncope, palpitation, ICD discharge. [facility] Medical History ICD (implantable cardioverter-defibrillator) in place Type 2 diabetes mellitus with hyperglycemia, with long-term current use of insulin Type 2 diabetes mellitus with hypoglycemia without coma Hyperlipidemia LDL goal <100 Controlled diabetes mellitus without complication, with long-term current use of insulin Prosthetic and other implants, materials and accessory gastroenterology and urology devices associated with adverse incidents DVT (deep venous thrombosis) Cardiomyopathy Surgical History History of implantable cardioverter-defibrillator (ICD) insertion Family History Father No problems noted. Mother Diabetes mellitus CVD (cardiovascular disease) Cancer Uterine cancer Cervical cancer Maternal Grandfather Prostate cancer Social History Household Members: None Housing: Apartment Alcohol intake: current Alcohol intake frequency: does not drink Patient Tobacco Use Status: Current everyday Tobacco user Tobacco use type: Cigarette Cigarettes Per Day: 7 service: No Current occupational status: unemployed Review of Systems Const Denies chills, Denies fatigue, Denies fever(s), Denies frequent falls, Denies weakness, Denies weight gain and Denies weight loss ENT Denies dizziness Card Denies chest pain, Denies leg edema, Denies lightheadedness, Denies palpitations, Denies dyspnea, Denies dyspnea on exertion, Denies orthopnea and Denies other (loss of consciousness) Resp Denies cough, Denies dyspnea and Denies dyspnea on exertion GI Denies hematochezia and Denies change in stool character Musc Denies abnormal gait, Denies muscle weakness, Denies numbness, Denies radiating pain into limb and Denies tingling Neuro Denies abnormal gait, Denies dizziness, Denies frequent falls, Denies numbness, Denies tingling and Denies weakness Endo Denies fatigue and Denies palpitations Physical Exam Vital Signs: Last Vital Signs Pulse 86 02/17/25 13:12 BP 122/74 02/17/25 13:12 BMI result Body Mass Index 29.1 Const General: cooperative, healthy appearing, comfortable and no acute distress Orientation/consciousness: patient oriented x3 Neck Neck: Yes normal visual inspection Resp Effort & Inspection: normal respiratory effort Auscultation: clear to auscultation bilaterally, no crackles, no rales, no rhonchi and no wheezes Cardio Jugular venous distension: no JVD Rate: regular rate Rhythm: regular rhythm Heart sounds: S1 normal heart sound present, S2 normal heart sound present, no murmurs and no rubs Neuro General: patient oriented x3 Extrem General: Yes normal to inspection Psych Appearance: grossly normal Mental Status: mental status grossly normal Speech and movement: Normal speech and movement present Office Procedures Cardiac Device Check Cardiac Device Check Details: Dual-chamber [employer] ICD in place. Programmed in VVI at 40 beats per minute. Battery life is at about 1 year. Multiple episodes of nonsustained VT noted. Atrial ventricular pacing thresholds adequate. Atrial ventricular sensing is adequate. Pacing and shock lead impedance is stable. 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 He is doing currently clinically well. Continue current neurohormonal modulation with Entresto, Jardiance, carvedilol therapy. Clinically appears to be euvolemic and well compensated. Continue to participate in regular physical activity. Daily weight monitoring avoidance salt loading was discussed. Additional diuretics as need be. Digoxin assay should be performed every 6 months. Continue digoxin therapy which has helped him with overall heart failure syndrome. Follow-up echocardiogram 6 months time. (2) Nonsustained ventricular tachycardia: Code(s): I47.2 - Ventricular tachycardia Category: Medical Plan: Nonsustained ventricular tachycardia which has a remain present but has had not had any ICD discharge. Continue carvedilol therapy. Avoidance of stimulants was discussed. (3) ICD (implantable cardioverter-defibrillator) in place: Comment: [employer] dual-chamber ICD in place, 2011 Code(s): Z95.810 - Presence of automatic (implantable) cardiac defibrillator Category: Medical Plan: Dual-chamber ICD in in place for primary prevention. ICD is working well. Reprogrammed for adequate function. Will follow up remotely for heart failure as well as device function. Thank you for allowing me to partake in his care. Follow up in 6 months time Orders: Orders CA echo transthoracic complete 6 Months I50.20 - Unspecified systolic (congestive) heart failure Coding Level of Care Code Est Pt Level 4 (03690) Complex EM visit Add On G2211 Diagnoses Heart failure with reduced ejection fraction I50.20 Nonsustained ventricular tachycardia I47.2 ICD (implantable cardioverter-defibrillator) in place Z95.810 CPT Codes Cardiac Device Check - Cardiac Device 5: [id number] Cardiac Device Check, dual lead implantable defibrillator ([id number])
[2025-02-17 13:12] VITALS: BP 122/74; PULSE 86; BMI 29.1
== END 2025-02-17 13:55 | disposition home or self-care (01) ==
LOC: HO.HCS 12:59
PROVIDERS: PCP Nurse Practitioner Family; Visit Provider Internal Medicine Cardiovascular Disease
DX: I50.20 Unspecified systolic (congestive) heart failure (principal); I47.20 Ventricular tachycardia, unspecified; Z95.810 Presence of automatic (implantable) cardiac defibrillator
CPT/HCPCS: 93283; 99214; G2211

== ENCOUNTER → 2025-02-17 12:59 | Outpatient (BNVA) | payer OTHER, SELFPAY | PROVIDERS: PCP Nurse Practitioner Family; Visit Provider Internal Medicine Cardiovascular Disease | DX: I50.20 Unspecified systolic (congestive) heart failure (principal); I47.20 Ventricular tachycardia, unspecified; Z95.810 Presence of automatic (implantable) cardiac defibrillator | CPT/HCPCS: 93283; 99212 ==

== ENCOUNTER → 2025-02-20 12:43 | Outpatient (BNV) | payer OTHER, SELFPAY | PROVIDERS: PCP Nurse Practitioner Family | DX: I47.10 Supraventricular tachycardia, unspecified (principal); Z95.810 Presence of automatic (implantable) cardiac defibrillator | CPT/HCPCS: 93295 ==

== ENCOUNTER 2025-03-12 10:26 | Outpatient (REF) | payer MEDICAID, SELFPAY ==
[2025-03-12 12:03] LABS: Appearance Urine Clear; Glucose Urine UA >=1000 mg/dL (Negative); PH 6.0 (5.0-9.0); Specific Gravity - Urine >= 1.030 (1.005-1.025); UMIC TRIGGER UACC YES
[2025-03-12 13:49] LABS: Microalbum/Creatinine Ratio Ur 15.8 ug/mg cr (<30)
[2025-03-12 13:54] LABS: MANUAL DIFF FLAG NO
[2025-03-12 13:56] LABS: Hematocrit 48.8 % (42.0-52.0); Hemoglobin 15.9 g/dl (14.0-18.0); Imm Gran Abs Auto 0.03 X10*3/uL (0.00-0.03); Imm Gran Pct Auto 0.4 % (0.0-0.4); Lymphocytes Absolute Auto 1.6 X10*3/uL (1.2-4.9); Mean Corpuscular HGB Conc 32.6 g/dl (31.0-36.0); Mean Corpuscular Hemoglobin 28.3 pg (27.0-33.0); Mean Corpuscular Volume 87.0 fL (80.0-98.0); NRBC Abs Auto 0.000 X10*3/uL (0.0-0.012); NRBC Pct Auto 0.0 /100WBC (0.0-0.2); Platelet Count 173 X10*3/uL (160-400); Red Blood Count 5.61 X10*6/uL (4.60-5.80); White Blood Count 7.0 X10*3/uL (4.8-10.8)
[2025-03-12 14:06] LABS: INTERNATIONAL NORM RATIO 2.0 (0.9-1.1); Prothrombin Time 23.7 SEC (11.2-13.5)
[2025-03-12 14:25] LABS: Alanine Aminotransferase 30 U/L (0-40); Albumin Level 4.6 g/dL (3.5-5.0); Alkaline Phosphatase 189 U/L (39-117); Anion Gap 7 (12-20); Aspartate Amino Transferase 28 U/L (5-37); Blood Urea Nitrogen 11 mg/dL (9-16); Calcium 9.3 mg/dL (8.4-10.2); Carbon Dioxide 32 mmol/L (22-29); Chloride 108 mmol/L (96-108); Cholesterol 130 mg/dL (<200); Estimated Glomerular Filt Rate > 60; HDL Cholesterol 37 mg/dL (>40); Potassium 3.4 mmol/L (3.3-5.1); Sodium 144 mmol/L (135-145); Total Protein 8.3 g/dL (6.5-8.0); Triglycerides 116 mg/dL (<150)
[2025-03-12 14:58] LABS: Folate 11.0 ng/mL (> or = 4.0); Prostate Specific Antigen 0.66 ng/mL (<0.05-4.0); Vitamin B12 552 pg/mL (200-900)
[2025-03-12 15:37] LABS: CT PCR Urine NOT DETECTED (Not Detect.); NG PCR Urine NOT DETECTED (Not Detect.)
[2025-03-13 04:14] LABS: Syphilis Screen Nonreactive (Nonreactive)
[2025-03-13 04:39] LABS: HBS Num1 62.94 mIU/mL (0-7.99); HBc Num1 0.14 S/CO (0.00-0.79); HBsAGNum1 0.44 S/CO (0.00-0.99); HIV Num 1 0.06 S/CO (0.00-0.99); Hepatitis B Surface Antigen Negative (Negative); ~HepC Num1 0.15 S/CO (0.00-0.79); ~Hepatitis B Surface Antibody REACTIVE (Nonreactive); ~Hepatitis C Antibody Nonreactive (Nonreactive)
== END 2025-03-12 10:27 | disposition home or self-care (01) ==
LOC: HO.HHCL 10:26
PROVIDERS: PCP Student in an Organized Health Care Education/Training Program; Visit Provider Student in an Organized Health Care Education/Training Program
DX: Z00.00 Encounter for general adult medical examination without abnormal findings (principal); Z20.2 Contact with and (suspected) exposure to infections with a predominantly sexual mode of transmission; Z11.4 Encounter for screening for human immunodeficiency virus [HIV]; Z11.59 Encounter for screening for other viral diseases
CPT/HCPCS: 80053; 80061; 81001; 82043; 82306; 82570; 82607; 82746; 83036; 84153; 84443; 85025; 85610; 86704; 86706; 86780; 86803; 87340; 87389; 87491; 87591

== ENCOUNTER → 2025-04-01 13:54 | Outpatient (BNV) | payer MEDICAID, SELFPAY | PROVIDERS: PCP Student in an Organized Health Care Education/Training Program; Visit Provider Internal Medicine Cardiovascular Disease | DX: Z45.02 Encounter for adjustment and management of automatic implantable cardiac defibrillator (principal) | CPT/HCPCS: 93297 ==